=== PATIENT | male | born 1935 | race Caucasian/White ===

== ENCOUNTER 2021-11-02 17:04 | Inpatient (IN) ==
[2021-11-02 17:15] VITALS: BMI 25.0
[2021-11-02 17:30] LABS: ABG HCO3 23.1 mmol/L (22-26)
--- NOTE | 2021-11-02 18:12 | DR.SOBA ---
HPI Time Seen Time Seen by Provider: 11/02/21 18:09 Primary Care Physician Primary Care Physician: DR. GUERLINE PERAZA Complaints Chief Complaint:: PT'S STATES PT C/O LOW O2 SATS, COUGH, & SOB X2 DAYS. PT IS ON HOME O2 @ NIGHT 2.5L NC. COVID-19 Coronavirus risk:travel/contact w/high risk person: No Has patient experienced Coronavirus symptoms: No Reviewed Nurses Notes Reviewed: Yes Source History Provided: Patient, Family Member and Significant Other Mode of Arrival Mode of Arrival: Wheelchair Timing Onset of Chief Complaint: 10/31/21 PMH PMH Past Medical History: Yes Past Medical History: Coronary Artery Disease, Diabetes and Hypertension Past Medical History Comment: HYPERLIPIDEMIA Past Surgical History: Yes Surgical History: Angioplasty/Stents Past Surgical History Comment: BYPASS X2, STENTS PLACED, PACEMAKER Family History History of Family Medical Conditions: Yes Family Medical History: Diabetes Mellitus, Cancer, MD, Coronary Artery Disease, Heart Failure and Hypertension Travel Risk Coronavirus risk:travel/contact w/high risk person: No Has patient experienced Coronavirus symptoms: No Infectious screening Have you traveled outside the country in the last 6 months?: No Isolation: Standard ROS Review of Systems Constitutional: No Symptoms Reported and See HPI Eyes: No Symptoms Reported and See HPI ENTM: No Symptoms Reported and See HPI Respiratoy: No Symptoms Reported and See HPI Cardiovascular: No Symptoms Reported and See HPI Gastrointestinal/Abdominal: No Symptoms Reported and See HPI Genitourinary: No Symptoms Reported and See HPI Neurological: No Symptoms Reported and See HPI Musculoskeletal: No Symptoms Reported and See HPI Integumentary: No Symptoms Reported and See HPI Hematologic/Lymphatic: No Symptoms Reported and See HPI Endocrine: No Symptoms Reported and See HPI Psychiatric: No Symptoms Reported and See HPI All Other Systems: Reviewed and Negative PE Vital Signs Vitals: Temperature 97.9 F Pulse Rate 69 Respiratory Rate 21 Blood Pressure 125/63 O2 Sat by Pulse Oximetry 96 General Limitations: No Limitations General Appearance: Alert and In No Apparent Distress Head Head Exam: Normal Inspection Eyes Eye exam: Normal Appearance ENT ENT Exam: Normal Exam Neck Neck Exam: Normal Inspection Chest Chest Inspection: Normal Inspection Respiratory Respiratory Exam: Normal Lung Sounds Bilat Respiratory Exam: Bilateral: Clear to Auscultation Cardiovascular Cardiovascular Exam: Regular Rate and Normal Rhythm Abdominal Exam Abdominal Exam: Normal Inspection, Normal Bowel Sounds and Soft Extremities Extremities Exam: Normal Inspection Back Back Exam: Normal Inspection Neurologic Neurological Exam: Alert and Oriented X3 Psychiatric Psychiatric Exam: Normal Affect and Normal Mood Skin Skin Exam: Warm, Dry, Intact and Normal Color MDM Differential Diagnosis Differential Diagnosis: COPD, Mycardial Infarction, Pneumonia, Pulmonary embolism and Respiratory Insufficiency Differential Diagnosis Comment:: Covid pneumonia COURSE Treatment Treatment: Attempt transfer to higher level of care but no beds available. Consultation Call Returned: 23:11 Consultation Comments: Dr. Garcia agrees to admit patient Education/Counseling Education/Counseling: Patient, Family and Counseling Educated On: Treatment and Diagnosis Critical Care Notes Total Time (mins): 60 Critical Diagnosis: Resp distress Covid Pneumonia AMI with elevated troponin Critical Interventions: Attempt transfer, but no [facility] beds are available at this time. Dr. Garcia will admit and monitor progress. ROR Labs Reviewed Laboratory Results Reviewed?: Yes Result Diagrams: 11/13/21 05:28 11/13/21 05:28 Laboratory: 11/02/21 17:51 Blood Blood Culture - Final 11/02/21 17:30 Blood Blood Culture - Final 11/03/21 01:00 Urine,Catheterized Urine Culture - Final 11/02/21 18:09 Sputum - Expectorated Sputum Sputum Culture - Final 11/02/21 18:09 Sputum - Expectorated Sputum - Final WBC 7.6 X10^3/uL (3.6-10.0) 11/02/21 17:51 RBC 2.77 X10^6/uL (4.7-6.0) L 11/02/21 17:51 Hgb 7.5 g/dL (13.5-18.0) L 11/02/21 17:51 Hct 22.7 % (42.0-54.0) L 11/02/21 17:51 MCV 81.8 fL (80.0-100.0) 11/02/21 17:51 MCH 27.1 pg (27.0-34.0) 11/02/21 17:51 MCHC 33.1 g/dL (33.0-35.0) 11/02/21 17:51 RDW 20.8 % (11.6-16.5) H 11/02/21 17:51 Plt Count 221 X10^3/uL (150.0-450.0) 11/02/21 17:51 Plt Count Comment Adequate (ADEQUATE) 11/02/21 17:51 MPV 8.5 fL (7.4-11.0) 11/02/21 17:51 Neut % (Auto) 88.4 % (42.0-75.0) H 11/02/21 17:51 Lymph % (Auto) 3.8 % (21.0-51.0) L 11/02/21 17:51 [place] % (Auto) 7.0 % (0.0-13.0) 11/02/21 17:51 Eos % (Auto) 0.6 % (0.9-2.9) L 11/02/21 17:51 Baso % (Auto) 0.2 % (0.2-1.0) 11/02/21 17:51 Neut # (Auto) 6.7 x10^3/uL (2.2-4.8) H 11/02/21 17:51 Lymph # (Auto) 0.3 X10^3/uL (1.3-2.9) L 11/02/21 17:51 [place] # (Auto) 0.5 x10^3/uL (0.3-0.8) 11/02/21 17:51 Eos # (Auto) 0.0 x10^3/uL (0.0-0.2) 11/02/21 17:51 Baso # (Auto) 0.0 X10^3/uL (0.0-0.1) 11/02/21 17:51 Absolute Nucleated RBC 0.0 /100WBC 11/02/21 17:51 Plt Morphology Comment Normal (NORMAL) 11/02/21 17:51 RBC Morphology Abnormal (NORMAL) 11/02/21 17:51 Poikilocytosis Slight A 11/02/21 17:51 Anisocytosis 1+ A 11/02/21 17:51 PT 15.5 SECONDS (11.8-14.3) 11/03/21 00:40 INR Target Range - 11/03/21 00:40 INR 1.30 (0.8-1.3) 11/03/21 00:40 APTT 36.6 SECONDS (22.9-36.5) H 11/03/21 00:40 PTT Comment - 11/03/21 00:40 Sample Site Rbra 11/02/21 17:23 ABG pH 7.370 (7.35-7.45) 11/02/21 17: ABG pCO2 40.0 mmHg (35.0-45.0) 11/02/21 17: ABG pO2 53.0 mmHg (80.0-100.0) L 11/02/21 17: ABG HCO3 23.1 mmol/L (22-26) 11/02/21 17: ABG O2 Saturation 86.0 % (90-100) L 11/02/21 17: ABG Base Excess -2.0 mmol/L (-2.0-2.0) 11/02/21 17: Cristiano Test N/a 11/02/21: A-a Gradient 47.0 mmHg 11/02/21 17: FiO2 21.0 11/02/21 17: Blood Gas Comments Pt ken well elj 11/02/21 17:23 Sodium 135 mmol/L (136-145) L 11/02/21 17:51 Corrected Sodium 139 mmol/L (136-145) 11/02/21 17:51 Potassium 4.3 mmol/L (3.5-5.1) 11/02/21 17:51 Chloride 98 mmol/L (98-107) 11/02/21 17:51 Carbon Dioxide 23.7 mmol/L (21-32) 11/02/21 17:51 BUN 60 mg/dL (7-18) H 11/02/21 17:51 Creatinine 4.06 mg/dL (0.70-1.30) H 11/02/21 17:51 Est GFR (MDRD) Af Amer 18 (>60) L 11/02/21 17:51 Est GFR (MDRD) Non-Af 15 (>60) L 11/02/21 17:51 Glucose 255 mg/dL (65-99) H 11/02/21 17:51 POC Glucose (mg/dL) 190 mg/dL (65-99) H 11/02/21 22:59 Lactic Acid 1.7 mmol/L (0.4-2.0) 11/02/21 17:51 Calcium 7.9 mg/dL (8.5-10.1) L 11/02/21 17:51 Corrected Calcium 9.3 mg/dL (8.5-10.1) 11/02/21 17:51 Total Bilirubin 0.80 mg/dL (0.2-1.0) 11/02/21 17:51 AST 42 Units/L (15-37) H 11/02/21 17:51 ALT 25 Units/L (12-78) 11/02/21 17:51 Alkaline Phosphatase 107 Units/L (46-116) 11/02/21 17:51 Creatine Kinase 589 Units/L (39-308) H 11/03/21 00:40 CK-MB (CK-2) 8.8 ng/mL (0-4.0) H* 11/03/21 00:40 CK/CKMB % Calc 1.5 % (<4) 11/03/21 00:40 Troponin I High Sens 140.1 ng/L (4.0-60.0) H* 11/03/21 00:40 B-Natriuretic Peptide 1010 pg/mL (0-79) H* 11/03/21 00:40 Total Protein 7.0 g/dL (6.4-8.2) 11/02/21 17:51 Albumin 2.2 g/dL (3.4-5.0) L 11/02/21 17:51 Globulin 4.8 g/dL (2.5-4.5) H 11/02/21 17:51 Albumin/Globulin Ratio 0.5 Ratio (1.1-2.1) L 11/02/21 17:51 Specimen Type Catherized urine 11/03/21 01:00 Urine Color Kimberlyn (YELLOW) 11/03/21 01:00 Urine Appearance Clear (CLEAR) 11/03/21 01:00 Urine pH 5.0 (5.0 - 8.0) 11/03/21 01:00 Ur Specific [place] 1.025 (1.000-1.030) 11/03/21 01:00 Urine Protein 2+ (NEGATIVE) 11/03/21 01:00 Urine Glucose (UA) Negative (NEGATIVE) 11/03/21 01:00 Urine Ketones Negative (NEGATIVE) 11/03/21 01:00 Urine Occult Blood 1+ (NEGATIVE) 11/03/21 01:00 Urine Nitrite Negative (NEGATIVE) 11/03/21 01:00 Urine Bilirubin Negative (NEGATIVE) 11/03/21 01:00 Urine Urobilinogen Normal (NORMAL) 11/03/21 01:00 Ur Leukocyte Esterase Negative (NEGATIVE) 11/03/21 01:00 Urine RBC None seen /HPF (0-3) 11/03/21 01:00 Urine WBC 0-2 /HPF (0-5) 11/03/21 01:00 Ur Squamous Epith Cells Negative /HPF (NEGATIVE) 11/03/21 01:00 Urine Bacteria 2+ /HPF (NEGATIVE) 11/03/21 01:00 Ur Culture Indicated? Yes/culture set up 11/03/21 01:00 SARS CoV-2 RNA Rapid BIRGIT Positive (NEGATIVE) A 11/02/21 17:38 XRAY XRAY Interpreted by: Radiologist X-ray Results: Name: Mackenzie DAVALOS#: [id number]: [id number] : [id number]: MLocation: ER Order Number(s): [id number](s):CHEST, 1 VIEW Ordering Physician: URMILA QUINONEZ Primary Care: GUERLINE PERAZA Service Date: 11/02/21 Service Time: 1726 HISTORY Shortness of breath x2 days. Patient on home oxygen. STUDY CHEST, 1 VIEW COMPARISON None available TECHNIQUE Chest radiographic imaging, AP portable projection, 1 image FINDINGS Mild cardiomegaly. Status post median sternotomy/CABG. Pacemaker in place. Bilateral perihilar airspace opacities. No pleural effusion. No pneumothorax. No acute osseous abnormality. IMPRESSION Bilateral perihilar airspace opacities could represent cardiogenic edema or the sequela of a atypical/viral infectious process. Electronically signed by: Олег Elizalde (Nov 02, 2021 18:21:30) Report Electronically signed: 11/02/21 1823 CC: Urmila Quinonez EKG Rate: 75 Rhythm: Paced Opioid Opioid Risk Tool Age (Thien box if 16-45): No History of Preadolescent Sexual Abuse: No Total: 0 Total Score Risk Category: Low Risk Copyright: Esteban SOLER predicting aberrant behaviors Diagnosis Discharge Problem: COVID-19 virus infection, Non Q wave myocardial infarction, Acute respiratory distress Instructions Instructions: COVID-19
[2021-11-02 18:19] LABS: BASOPHILS % (AUTO) 0.2 % (0.2-1.0); EOSINOPHILS % (AUTO) 0.6 % (0.9-2.9); HEMATOCRIT 22.7 % (42.0-54.0); HEMOGLOBIN 7.5 g/dL (13.5-18.0); LYMPHOCYTES # (AUTO) 0.3 X10^3/uL (1.3-2.9); LYMPHOCYTES % (AUTO) 3.8 % (21.0-51.0); MEAN CORPUSCULAR HEMOGLOBIN 27.1 pg (27.0-34.0); MEAN CORPUSCULAR HGB CONC 33.1 g/dL (33.0-35.0); MEAN CORPUSCULAR VOLUME 81.8 fL (80.0-100.0); MEAN PLATELET VOLUME 8.5 fL (7.4-11.0); MONOCYTES # (AUTO) 0.5 x10^3/uL (0.3-0.8); NEUTROPHILS # (AUTO) 6.7 x10^3/uL (2.2-4.8); NEUTROPHILS % (AUTO) 88.4 % (42.0-75.0); RED BLOOD COUNT 2.77 X10^6/uL (4.7-6.0); RED CELL DISTRIBUTION WIDTH 20.8 % (11.6-16.5); WHITE BLOOD COUNT 7.6 X10^3/uL (3.6-10.0)
--- NOTE | 2021-11-02 18:23 | RAD ---
HISTORYShortness of breath x2 days. Patient on home oxygen.STUDYCHEST, 1 VIEWCOMPARISONNone availableTECHNIQUEChest radiographic imaging, AP portable projection, 1 imageFINDINGSMild cardiomegaly.Status post median sternotomy/CABG.Pacemaker in place.Bilateral perihilar airspace opacities.No pleural effusion.No pneumothorax.No acute osseous abnormality.IMPRESSIONBilateral perihilar airspace opacities could represent cardiogenic edema or the sequela of a atypical/viral infectious process.Electronically signed by: Олег Elizalde (Nov 02, 2021 18:21:30)
[2021-11-02 18:36] LABS: LACTIC ACID 1.7 mmol/L (0.4-2.0)
[2021-11-02 18:45] LABS: ANISOCYTOSIS 1+; POIKILOCYTOSIS SLIGHT
[2021-11-02 18:52] LABS: ALBUMIN 2.2 g/dL (3.4-5.0); CALCIUM 7.9 mg/dL (8.5-10.1); CARBON DIOXIDE 23.7 mmol/L (21-32); CKMB % 1.6 % (<4); COR CA(FOR HYPOALB) 9.3 mg/dL (8.5-10.1); CREATININE 4.06 mg/dL (0.70-1.30)
[2021-11-02 19:31] LABS: PLATELET MORPHOLOGY COMMENT NORMAL (NORMAL)
[2021-11-02] MEDS ORDERED: DUONEB 0.5 MG/3 MG (3 mL) NEB ONE ×2 (21:01→21:13)
[2021-11-02] MEDS ORDERED: SOLU-Medrol 125 MG VIAL IVP ONE (21:01)
[2021-11-02] MEDS ORDERED: SOLU-Medrol 125 MG VIAL ONE (22:05)
[2021-11-02] MEDS ORDERED: ZOSYN VIAL 3.375 GRAMS 3.375 G in NS 100 ML IV + SPIKE MINIBAG* 100 ML IV ONE (22:59)
[2021-11-02] MEDS ORDERED: NS 1,000 ML IV 1,000 ML IV SCH (23:45)
[2021-11-03] MEDS ORDERED: ZOSYN VIAL 3.375 GRAMS IV ONE ×3 (00:14→08:57)
[2021-11-03] MEDS ORDERED: NS 1,000 ML IV 1,000 ML ONE ×2 (00:15→13:43)
[2021-11-03] MEDS ORDERED: NS 100 ML IV + SPIKE MINIBAG* 100 ML IV ONE ×3 (00:15→08:57)
[2021-11-03] MEDS ORDERED: HEPARIN SODIUM INJ 5000 UNITS ONE (01:43)
[2021-11-03] MEDS ORDERED: HEPARIN SODIUM IN D5W 25,000 UNITS/500 ML BAG ONE (01:43)
[2021-11-03 01:56] LABS: BILIRUBIN,URINE NEGATIVE (NEGATIVE); BLOOD/HEMOGLOBIN,URINE 1+ (NEGATIVE); GLUCOSE, URINE NEGATIVE (NEGATIVE); KETONES,URINE NEGATIVE (NEGATIVE); LEUKOCYTE ESTERASE ,URINE NEGATIVE (NEGATIVE); NITRITES,URINE NEGATIVE (NEGATIVE); PROTEIN,URINE 2+ (NEGATIVE); UROBILINOGEN,URINE NORMAL (NORMAL)
[2021-11-03 01:57] LABS: CKMB % 1.5 % (<4)
[2021-11-03 02:05] LABS: CREATINE KINASE MB 8.8 ng/mL (0-4.0)
[2021-11-03 02:07] LABS: APPEARANCE,URINE CLEAR (CLEAR); BACTERIA,URINE 2+ /HPF (NEGATIVE); COLOR,URINE AMBER (YELLOW); RBC,URINE NONE SEEN /HPF (0-3); SQUAMOUS EPITHELIAL CELL,UR NEGATIVE /HPF (NEGATIVE)
[2021-11-03] MEDS ORDERED: HEPARIN SODIUM INJ 5000 UNITS IVP ONE (02:35)
[2021-11-03] MEDS: HEPARIN SODIUM IN D5W 25,000 UNITS/500 ML BAG IV PRN ×2 (02:41→16:48)
[2021-11-03] MEDS ORDERED: NS 1,000 ML IV 1,000 ML IV SCH (03:00)
[2021-11-03] MEDS ORDERED: NS 100 ML IV 100 ML ONE ×3 (03:18→11:12)
[2021-11-03] MEDS: ASCORBIC ACID INJ MULTI-DOSE VIAL 1,500 MG in NS 100 ML IV 100 ML IV SCH ×2 (03:33→03:34)
[2021-11-03] MEDS ORDERED: ZOSYN VIAL 3.375 GRAMS 3.375 G in NS 100 ML IV + SPIKE MINIBAG* 100 ML IV SCH (06:00)
[2021-11-03] MEDS ORDERED: SOLU-Medrol 40 MG VIAL IVP SCH (06:00)
[2021-11-03] MEDS: NS 1,000 ML IV 1,000 ML IV SCH ×2 (06:14→13:44)
[2021-11-03] MEDS ORDERED: SOLU-Medrol 40 MG VIAL ONE (06:16)
[2021-11-03] MEDS ORDERED: NovoLIN R (or HumuLIN R) ONE ×2 (06:18→12:26)
[2021-11-03] MEDS: NovoLIN R (or HumuLIN R) SUBCUT PRN ×2 (06:41→17:29)
[2021-11-03 06:46] LABS: CKMB % 1.3 % (<4)
[2021-11-03 06:49] LABS: CREATINE KINASE MB 7.5 ng/mL (0-4.0)
[2021-11-03] MEDS ORDERED: BROVANA ONE (07:35)
[2021-11-03] MEDS ORDERED: PULMICORT NEB TX 0.5 MG NEB ONE ×2 (07:35→20:30)
[2021-11-03] MEDS ORDERED: ZINC SULFATE ONE (08:02)
[2021-11-03] MEDS ORDERED: VIBRAMYCIN PO ONE (08:02)
[2021-11-03] MEDS ORDERED: ASCORBIC ACID INJ MULTI-DOSE VIAL IV ONE (08:03)
[2021-11-03] MEDS ORDERED: PEPCID TAB 40 MG ONE (08:03)
[2021-11-03] MEDS ORDERED: TRICOR TAB 160 MG ONE (08:03)
[2021-11-03] MEDS: PULMICORT NEB TX 0.5 MG NEB SCH (08:25)
[2021-11-03] MEDS: BROVANA IN SCH (08:25)
[2021-11-03] MEDS: VIBRAMYCIN PO SCH (08:46)
[2021-11-03] MEDS: PEPCID TAB 20 MG PO SCH (08:46)
[2021-11-03] MEDS: ZINC SULFATE PO SCH (08:47)
[2021-11-03] MEDS: ZOSYN VIAL 3.375 GRAMS 3.375 G in NS 100 ML IV + SPIKE MINIBAG* 100 ML IV SCH (08:59)
[2021-11-03] MEDS ORDERED: VITAMIN D (1.25MG) PO SCH (09:00)
[2021-11-03] MEDS ORDERED: BROVANA IN SCH (09:00)
[2021-11-03] MEDS ORDERED: TRICOR TAB 160 MG PO SCH (09:00)
[2021-11-03] MEDS ORDERED: ASCORBIC ACID INJ MULTI-DOSE VIAL 1,500 MG in NS 50 ML IV 50 ML IV SCH (09:00)
[2021-11-03] MEDS ORDERED: VITAMIN A PO SCH (09:00)
[2021-11-03] MEDS ORDERED: PULMICORT NEB TX 0.5 MG NEB SCH (09:00)
[2021-11-03] MEDS ORDERED: PHARMACY CONSULT - IVERMECTIN XX SCH (10:00)
[2021-11-03] MEDS ORDERED: REMDESIVIR 200 MG in NS 250 ML IV 250 ML IV ONE (10:02)
[2021-11-03 11:04] LABS: CKMB % 1.5 % (<4)
[2021-11-03 11:05] LABS: HEMOGLOBIN 7.8 g/dL (13.5-18.0); LYMPHOCYTES # (AUTO) 0.2 X10^3/uL (1.3-2.9); MEAN CORPUSCULAR HGB CONC 32.8 g/dL (33.0-35.0); MEAN CORPUSCULAR VOLUME 81.8 fL (80.0-100.0); MEAN PLATELET VOLUME 9.2 fL (7.4-11.0); MONOCYTES # (AUTO) 0.1 x10^3/uL (0.3-0.8); WHITE BLOOD COUNT 5.5 X10^3/uL (3.6-10.0)
[2021-11-03 11:06] LABS: CREATINE KINASE MB 8.9 ng/mL (0-4.0)
[2021-11-03 11:08] LABS: BASOPHILS % (AUTO) 0.7 % (0.2-1.0); EOSINOPHILS % (AUTO) 0.1 % (0.9-2.9); HEMATOCRIT 23.8 % (42.0-54.0); LYMPHOCYTES % (AUTO) 3.3 % (21.0-51.0); MEAN CORPUSCULAR HEMOGLOBIN 26.8 pg (27.0-34.0); MONOCYTES % (AUTO) 1.9 % (0.0-13.0); NEUTROPHILS # (AUTO) 5.2 x10^3/uL (2.2-4.8); RED BLOOD COUNT 2.91 X10^6/uL (4.7-6.0); RED CELL DISTRIBUTION WIDTH 20.7 % (11.6-16.5)
[2021-11-03] MEDS ORDERED: REMDESIVIR IV ONE (11:11)
[2021-11-03] MEDS ORDERED: LUVOX ONE (11:11)
[2021-11-03] MEDS ORDERED: IVERMECTIN ONE (11:11)
[2021-11-03 11:13] LABS: ALBUMIN 2.1 g/dL (3.4-5.0); CALCIUM 7.8 mg/dL (8.5-10.1); CARBON DIOXIDE 19.2 mmol/L (21-32); COR CA(FOR HYPOALB) 9.3 mg/dL (8.5-10.1); CREATININE 3.84 mg/dL (0.70-1.30); TOTAL PROTEIN 6.8 g/dL (6.4-8.2)
[2021-11-03 11:26] LABS: BAND NEUTROPHILS % 4 % (0-10); BURR CELLS 2+; PLATELET MORPHOLOGY COMMENT NORMAL (NORMAL)
[2021-11-03] MEDS: LUVOX PO SCH (11:49)
[2021-11-03] MEDS: COZAAR PO SCH (11:50)
[2021-11-03] MEDS: ISOSORBIDE MONONITRATE ER 24-HR PO SCH (11:50)
[2021-11-03] MEDS: COREG TAB 25 MG PO SCH (11:50)
[2021-11-03] MEDS: IVERMECTIN PO SCH (11:51)
[2021-11-03] MEDS: RANEXA PO SCH (11:52)
[2021-11-03] MEDS: REMDESIVIR 100 MG in NS 250 ML IV 250 ML IV SCH (11:53)
[2021-11-03] MEDS ORDERED: SOLU-Medrol 125 MG VIAL ONE (12:25)
[2021-11-03] MEDS ORDERED: VITAMIN C ONE (12:26)
[2021-11-03] MEDS: VITAMIN C PO SCH ×2 (12:30→21:10)
[2021-11-03] MEDS: SOLU-Medrol 125 MG VIAL IVP SCH (13:43)
[2021-11-03 16:53] LABS: CKMB % 1.7 % (<4)
[2021-11-03 16:58] LABS: CREATINE KINASE MB 10.6 ng/mL (0-4.0)
[2021-11-03] MEDS ORDERED: BROVANA IN ONE (20:30)
[2021-11-04] MEDS ORDERED: ZINC SULFATE PO ONE (09:00)
[2021-11-04] MEDS ORDERED: PEPCID TAB 20 MG PO ONE (09:00)
[2021-11-04] MEDS ORDERED: VIBRAMYCIN IV ONE (09:00)
[2021-11-04] MEDS ORDERED: SOLU-Medrol 125 MG VIAL IVP ONE (09:00)
[2021-11-04] MEDS: COREG TAB 25 MG PO SCH ×2 (09:10→21:36)
[2021-11-04] MEDS: LUVOX PO SCH ×2 (09:15→21:36)
[2021-11-04] MEDS: IVERMECTIN PO SCH (09:15)
[2021-11-04] MEDS: COZAAR PO SCH (09:15)
[2021-11-04] MEDS: RANEXA PO SCH ×2 (09:15→21:36)
[2021-11-04] MEDS: ISOSORBIDE MONONITRATE ER 24-HR PO SCH (09:15)
[2021-11-04] MEDS: ZOSYN VIAL 3.375 GRAMS 3.375 G in NS 100 ML IV + SPIKE MINIBAG* 100 ML IV SCH ×2 (09:15→22:06)
[2021-11-04] MEDS: VIBRAMYCIN PO SCH ×2 (09:15→21:36)
[2021-11-04] MEDS: ZINC SULFATE PO SCH ×2 (09:15→21:36)
[2021-11-04] MEDS: PEPCID TAB 20 MG PO SCH (09:15)
[2021-11-04] MEDS ORDERED: PULMICORT NEB TX 0.5 MG NEB ONE (09:30)
[2021-11-04] MEDS ORDERED: BROVANA IN ONE (09:30)
[2021-11-04] MEDS: NS 1,000 ML IV 1,000 ML IV SCH (09:41)
[2021-11-04] MEDS: NovoLIN R (or HumuLIN R) SUBCUT PRN ×3 (12:20→22:16)
--- NOTE | 2021-11-04 14:18 | RAD ---
HISTORYCOVID-19, shortness of breathSTUDYChest AP [id number] teral pacemakers are present. Patient is status post median sternotomy and CABG. There has been interval development since the prior examination of complete opacification of the left hemithorax which could be on the basis of left lung atelectasis however associated consolidation or pleural effusion not excluded. Diffuse alveolar infiltrates remain unchanged on the right. Bony thorax is unremarkable.IMPRESSIONInterval development since the prior examination of complete opacification of the left hemithorax which could be due to left lung atelectasis, however, consolidation and pleural effusion not excludedNo change severe diffuse right lung alveolar infiltratesElectronically signed by: ROZ BOND (Nov 04, 2021 14:16:06)
[2021-11-04 14:24] LABS: ALBUMIN 1.9 g/dL (3.4-5.0); CALCIUM 7.6 mg/dL (8.5-10.1); CARBON DIOXIDE 20.9 mmol/L (21-32); CKMB % 1.9 % (<4); COR CA(FOR HYPOALB) 9.3 mg/dL (8.5-10.1); CREATININE 3.6 mg/dL (0.70-1.30); MAGNESIUM 1.9 mg/dL (1.7-2.9); TOTAL PROTEIN 6.5 g/dL (6.4-8.2)
[2021-11-04 14:25] LABS: CREATINE KINASE MB 10.3 ng/mL (0-4.0)
[2021-11-04] MEDS: SOLU-Medrol 125 MG VIAL IVP SCH ×2 (14:30→21:37)
[2021-11-04 14:51] LABS: BASOPHILS % (AUTO) 0.1 % (0.2-1.0); HEMATOCRIT 21.4 % (42.0-54.0); LYMPHOCYTES # (AUTO) 0.2 X10^3/uL (1.3-2.9); MEAN CORPUSCULAR HEMOGLOBIN 26.6 pg (27.0-34.0); MEAN CORPUSCULAR HGB CONC 32.8 g/dL (33.0-35.0); MEAN CORPUSCULAR VOLUME 81.2 fL (80.0-100.0); MEAN PLATELET VOLUME 8.7 fL (7.4-11.0); MONOCYTES # (AUTO) 0.3 x10^3/uL (0.3-0.8); NEUTROPHILS # (AUTO) 6.7 x10^3/uL (2.2-4.8); NEUTROPHILS % (AUTO) 92.9 % (42.0-75.0); RED BLOOD COUNT 2.63 X10^6/uL (4.7-6.0); RED CELL DISTRIBUTION WIDTH 20.3 % (11.6-16.5); WHITE BLOOD COUNT 7.2 X10^3/uL (3.6-10.0)
[2021-11-04 14:53] LABS: ANISOCYTOSIS 1+; HYPOCHROMASIA SLIGHT; PLATELET MORPHOLOGY COMMENT NORMAL (NORMAL)
--- NOTE | 2021-11-04 16:18 | PCM.PROG ---
Progress Note Progress Note for Day of Date of Exam: 11/04/21 Subjective Subjective: Patient had some hallucinations overnight. Seeing and hearing things. Family reports he did not rest well last night. The patient is alert this morning and does answer questions. Hb has dropped to 7.0, Cr 3.60, Potassium 4.1, Na 135, WBC's 7.2. CXR shows left lung whiteout. Troponin 118.6 which is trending down. Past Medical Family Social History Past Med/Fam/Surg Hx: No changes since H&P Allergies: Allergies No Known Drug Allergies Allergy (Verified 11/02/21 17:15) Review of Systems ROS: Changes notes (describe) ROS changes noted: Hallucinations Vital Signs and I&O's Vital Signs: Temperature 98.2 F Pulse Rate [Left Brachial] 69 Pulse Rate 69 Respiratory Rate 24 Blood Pressure [Left Arm] 144/68 Blood Pressure 157/62 O2 Sat by Pulse Oximetry 92 Intake and Output: Intake & Output 11/02/21 11/03/21 11/04/21 11/05/21 11:59 11:59 11:59 11:59 Intake Total 1043 / 1043 1120 / 1120 Output Total 375 / 375 Balance 668 / 668 1120 / 1120 Physical Exam Oriented: Person and Place Eyes: Normal Ear: Normal Nose: Normal Throat: Normal Respiratory: Generalized, Wheezes and Rhonchi : Normal Auscultation: Bowel Sounds: Normal Palpation: Normal Tenderness: Normal Skin: Normal Musculoskeletal: Normal Psychiatric: Normal Mood Description: Calm Affect: Normal Speech Pattern: Clear and Appropriate Laboratory and Diagnostics Result Diagrams: 11/04/21 05:08 11/04/21 05:08 Labs: 11/02/21 17:51 Blood Blood Culture - Preliminary 11/02/21 17:30 Blood Blood Culture - Preliminary 11/03/21 01:00 Urine,Catheterized Urine Culture - Preliminary 11/02/21 18:09 Sputum - Expectorated Sputum Sputum Culture - Final 11/02/21 18:09 Sputum - Expectorated Sputum - Final Laboratory WBC 7.2 X10^3/uL (3.6-10.0) 11/04/21 05:08 RBC 2.63 X10^6/uL (4.7-6.0) L 11/04/21 05:08 Hgb 7.0 g/dL (13.5-18.0) L 11/04/21 05:08 Hct 21.4 % (42.0-54.0) L 11/04/21 05:08 MCV 81.2 fL (80.0-100.0) 11/04/21 05:08 MCH 26.6 pg (27.0-34.0) L 11/04/21 05:08 MCHC 32.8 g/dL (33.0-35.0) L 11/04/21 05:08 RDW 20.3 % (11.6-16.5) H 11/04/21 05:08 Plt Count 221 X10^3/uL (150.0-450.0) 11/04/21 05:08 Plt Count Comment Adequate (ADEQUATE) 11/04/21 05:08 MPV 8.7 fL (7.4-11.0) 11/04/21 05:08 Neut % (Auto) 92.9 % (42.0-75.0) H 11/04/21 05:08 Lymph % (Auto) 3.0 % (21.0-51.0) L 11/04/21 05:08 [place] % (Auto) 4.0 % (0.0-13.0) 11/04/21 05:08 Eos % (Auto) 0.0 % (0.9-2.9) L 11/04/21 05:08 Baso % (Auto) 0.1 % (0.2-1.0) L 11/04/21 05:08 Neut # (Auto) 6.7 x10^3/uL (2.2-4.8) H 11/04/21 05:08 Lymph # (Auto) 0.2 X10^3/uL (1.3-2.9) L 11/04/21 05:08 [place] # (Auto) 0.3 x10^3/uL (0.3-0.8) 11/04/21 05:08 Eos # (Auto) 0.0 x10^3/uL (0.0-0.2) 11/04/21 05:08 Baso # (Auto) 0.0 X10^3/uL (0.0-0.1) 11/04/21 05:08 Absolute Nucleated RBC 0.1 /100WBC 11/04/21 05:08 Total Counted 100 11/04/21 05:08 Neutrophils % (Manual) 90 % (39-76) H 11/04/21 05:08 Band Neutrophils % 4 % (0-10) 11/03/21 05:51 Lymphocytes % (Manual) 7 % (13-43) L 11/04/21 05:08 Monocytes % (Manual) 3 % (4-9) L 11/04/21 05:08 Plt Morphology Comment Normal (NORMAL) 11/04/21 05:08 RBC Morphology Abnormal (NORMAL) 11/04/21 05:08 Hypochromasia Slight A 11/04/21 05:08 Poikilocytosis Slight A 11/02/21 17:51 Anisocytosis 1+ A 11/04/21 05:08 Caryl Cells 2+ A 11/03/21 05:51 Acanthocytes (Spur) Noted 11/04/21 05:08 PT 15.5 SECONDS (11.8-14.3) 11/03/21 00:40 INR Target Range - 11/03/21 00:40 INR 1.30 (0.8-1.3) 11/03/21 00:40 APTT 56.8 SECONDS (22.9-36.5) H 11/04/21 14:34 PTT Comment - 11/04/21 14:34 D-Dimer 4.06 ug/ml (0.0-0.57) H* 11/03/21 08:58 Sample Site [facility] 11/02/21 17: ABG pH 7.370 (7.35-7.45) 11/02/21 17:23 ABG pCO2 40.0 mmHg (35.0-45.0) 11/02/21 17:23 ABG pO2 53.0 mmHg (80.0-100.0) L 11/02/21 17:23 ABG HCO3 23.1 mmol/L (22-26) 11/02/21 17: ABG O2 Saturation 86.0 % (90-100) L 11/02/21 17:23 ABG Base Excess -2.0 mmol/L (-2.0-2.0) 11/02/21 17:23 Cristiano Test N/a 11/02/21 17:23 A-a Gradient 47.0 mmHg 11/02/21 17:23 FiO2 21.0 11/02/21 17:23 Blood Gas Comments Pt ken well elj 11/02/21 17:23 Sodium 135 mmol/L (136-145) L 11/04/21 05:08 Corrected Sodium 141 mmol/L (136-145) 11/04/21 05:08 Potassium 4.1 mmol/L (3.5-5.1) 11/04/21 05:08 Chloride 101 mmol/L (98-107) 11/04/21 05:08 Carbon Dioxide 20.9 mmol/L (21-32) L 11/04/21 05:08 BUN 77 mg/dL (7-18) H 11/04/21 05:08 Creatinine 3.60 mg/dL (0.70-1.30) H 11/04/21 05:08 Est GFR (MDRD) Af Amer 21 (>60) L 11/04/21 05:08 Est GFR (MDRD) Non-Af 17 (>60) L 11/04/21 05:08 Glucose 340 mg/dL (65-99) H 11/04/21 05:08 POC Glucose (mg/dL) 421 mg/dL (65-99) H 11/03/21 16:36 Lactic Acid 1.7 mmol/L (0.4-2.0) 11/02/21 17:51 Calcium 7.6 mg/dL (8.5-10.1) L 11/04/21 05:08 Corrected Calcium 9.3 mg/dL (8.5-10.1) 11/04/21 05:08 Magnesium 1.9 mg/dL (1.7-2.9) 11/04/21 05:08 Total Bilirubin 0.50 mg/dL (0.2-1.0) 11/04/21 05:08 AST 54 Units/L (15-37) H 11/04/21 05:08 ALT 37 Units/L (12-78) 11/04/21 05:08 Alkaline Phosphatase 93 Units/L (46-116) 11/04/21 05:08 Creatine Kinase 530 Units/L (39-308) H 11/04/21 05:08 CK-MB (CK-2) 10.3 ng/mL (0-4.0) H* 11/04/21 05:08 CK/CKMB % Calc 1.9 % (<4) 11/04/21 05:08 Troponin I High Sens 118.6 ng/L (4.0-60.0) H* 11/04/21 05:08 C-Reactive Protein 159.00 mg/L (0-3.0) H 11/04/21 05:08 B-Natriuretic Peptide 1010 pg/mL (0-79) H* 11/03/21 00:40 Total Protein 6.5 g/dL (6.4-8.2) 11/04/21 05:08 Albumin 1.9 g/dL (3.4-5.0) L 11/04/21 05:08 Globulin 4.6 g/dL (2.5-4.5) H 11/04/21 05:08 Albumin/Globulin Ratio 0.4 Ratio (1.1-2.1) L 11/04/21 05:08 Specimen Type Catherized urine 11/03/21 01:00 Urine Color Kimberlyn (YELLOW) 11/03/21 01:00 Urine Appearance Clear (CLEAR) 11/03/21 01:00 Urine pH 5.0 (5.0 - 8.0) 11/03/21 01:00 Ur Specific [place] 1.025 (1.000-1.030) 11/03/21 01:00 Urine Protein 2+ (NEGATIVE) 11/03/21 01:00 Urine Glucose (UA) Negative (NEGATIVE) 11/03/21 01:00 Urine Ketones Negative (NEGATIVE) 11/03/21 01:00 Urine Occult Blood 1+ (NEGATIVE) 11/03/21 01:00 Urine Nitrite Negative (NEGATIVE) 11/03/21 01:00 Urine Bilirubin Negative (NEGATIVE) 11/03/21 01:00 Urine Urobilinogen Normal (NORMAL) 11/03/21 01:00 Ur Leukocyte Esterase Negative (NEGATIVE) 11/03/21 01:00 Urine RBC None seen /HPF (0-3) 11/03/21 01:00 Urine WBC 0-2 /HPF (0-5) 11/03/21 01:00 Ur Squamous Epith Cells Negative /HPF (NEGATIVE) 11/03/21 01:00 Urine Bacteria 2+ /HPF (NEGATIVE) 11/03/21 01:00 Ur Culture Indicated? Yes/culture set up 11/03/21 01:00 SARS CoV-2 RNA Rapid BIRGIT Positive (NEGATIVE) A 11/02/21 17:38 Blood Type O POSITIVE 11/03/21 05:51 Antibody Screen Negative 11/03/21 05:51 Radiology Reviewed: Yes EKG Reviewed: Yes ST: Normal Plan (1) COVID-19 virus infection: Status: Acute Plan: Ween off heated high flow as tolerated. (2) Non Q wave myocardial infarction: Status: Acute Narrative Support Text: Troponons are trending down now. Continue to monitor and continue Heparin drip, Coreg, Losartan and NTG. Plan: Continue current treatment. (3) Acute respiratory distress: Status: Acute Narrative Support Text: Stable. Plan: Continue nebs, IV abx and Solumedrol.
[2021-11-04] MEDS: REMDESIVIR 100 MG in NS 250 ML IV 250 ML IV SCH (16:27)
[2021-11-04 16:58] LABS: CKMB % 1.8 % (<4); CREATINE KINASE MB 12.4 ng/mL (0-4.0)
[2021-11-04] MEDS: VITAMIN C PO SCH ×2 (17:18→21:35)
[2021-11-04] MEDS ORDERED: DUONEB 0.5 MG/3 MG (3 mL) NEB ONE (18:30)
[2021-11-04] MEDS: DUONEB 0.5 MG/3 MG (3 mL) NEB PRN ×2 (18:34→23:57)
[2021-11-04 18:56] LABS: ABG ALLEN TEST POS; ABG BASE EXCESS -3.7 mmol/L (-2.0-2.0); ABG HCO3 22.1 mmol/L (22-26)
[2021-11-04] MEDS: SNACK - Diabetic Appropriate PO SCH (21:00)
[2021-11-04] MEDS: PULMICORT NEB TX 0.5 MG NEB SCH (21:10)
[2021-11-04] MEDS: BROVANA IN SCH (21:10)
[2021-11-04] MEDS: NORVASC TAB 5 MG PO SCH (21:36)
[2021-11-05 01:12] LABS: CKMB % 2.3 % (<4)
[2021-11-05 01:26] LABS: CREATINE KINASE MB 6.7 ng/mL (0-4.0)
[2021-11-05 03:03] LABS: ALBUMIN 1.9 g/dL (3.4-5.0); CALCIUM 7.7 mg/dL (8.5-10.1); CARBON DIOXIDE 23.5 mmol/L (21-32); COR CA(FOR HYPOALB) 9.4 mg/dL (8.5-10.1); CREATININE 3.29 mg/dL (0.70-1.30); MAGNESIUM 1.8 mg/dL (1.7-2.9); TOTAL PROTEIN 6.4 g/dL (6.4-8.2)
[2021-11-05 03:04] LABS: BASOPHILS % (AUTO) 0.1 % (0.2-1.0); HEMATOCRIT 21.7 % (42.0-54.0); HEMOGLOBIN 7.1 g/dL (13.5-18.0); LYMPHOCYTES # (AUTO) 0.2 X10^3/uL (1.3-2.9); MEAN CORPUSCULAR HEMOGLOBIN 26.7 pg (27.0-34.0); MEAN CORPUSCULAR HGB CONC 32.9 g/dL (33.0-35.0); MEAN CORPUSCULAR VOLUME 81.1 fL (80.0-100.0); MEAN PLATELET VOLUME 8.5 fL (7.4-11.0); MONOCYTES # (AUTO) 0.3 x10^3/uL (0.3-0.8); MONOCYTES % (AUTO) 4.3 % (0.0-13.0); NEUTROPHILS # (AUTO) 7.5 x10^3/uL (2.2-4.8); NEUTROPHILS % (AUTO) 93.6 % (42.0-75.0); RED BLOOD COUNT 2.68 X10^6/uL (4.7-6.0); RED CELL DISTRIBUTION WIDTH 20.4 % (11.6-16.5)
[2021-11-05] MEDS: VITAMIN C PO SCH ×3 (03:09→15:57)
[2021-11-05 04:27] LABS: ANISOCYTOSIS 1+; HYPOCHROMASIA SLIGHT; PLATELET MORPHOLOGY COMMENT NORMAL (NORMAL)
--- NOTE | 2021-11-05 05:41 | RAD ---
PROCEDURE: Chest X-ray 1 View .HISTORY: SHORTNESS OF BREATH, PNEUMONIA, RESP DISTRESS, HYPOXIA .TECHNIQUE: AP portable done at 5:36 a.m..COMPARISON: 11/04/2021.TECHNICAL QUALITY: Satisfactory .FINDINGS:Heart size upper limits of normal with pacemaker on both sides that is unchanged.Normal central vascularity.Bilateral pneumonia that is moderately severe increased in density on the right and improved on the left.IMPRESSION:Changing pneumonia bilaterally as described above.Electronically signed by: Alexis Malone (Nov 05, 2021 05:40:28)
[2021-11-05] MEDS: SOLU-Medrol 125 MG VIAL IVP SCH ×2 (05:45→21:20)
[2021-11-05 05:47] LABS: ABG BASE EXCESS -2.2 mmol/L (-2.0-2.0); ABG HCO3 20.9 mmol/L (22-26)
[2021-11-05] MEDS: NovoLIN R (or HumuLIN R) SUBCUT PRN ×2 (06:00→21:20)
[2021-11-05] MEDS: HEPARIN SODIUM IN D5W 25,000 UNITS/500 ML BAG IV PRN (06:02)
[2021-11-05] MEDS: NS 1,000 ML IV 1,000 ML IV SCH (06:17)
[2021-11-05] MEDS: BROVANA IN SCH ×2 (09:10→20:40)
[2021-11-05] MEDS: PULMICORT NEB TX 0.5 MG NEB SCH ×2 (09:10→20:40)
[2021-11-05] MEDS ORDERED: VALIUM PO PRN (11:12)
[2021-11-05] MEDS: ZOSYN VIAL 3.375 GRAMS 3.375 G in NS 100 ML IV + SPIKE MINIBAG* 100 ML IV SCH ×2 (11:13→21:20)
[2021-11-05] MEDS: REMDESIVIR 100 MG in NS 250 ML IV 250 ML IV SCH (11:13)
[2021-11-05] MEDS: ISOSORBIDE MONONITRATE ER 24-HR PO SCH (11:15)
[2021-11-05] MEDS: IVERMECTIN PO SCH (11:16)
[2021-11-05] MEDS: RANEXA PO SCH ×2 (11:16→21:20)
[2021-11-05] MEDS: COZAAR PO SCH (11:17)
[2021-11-05] MEDS: VIBRAMYCIN PO SCH ×2 (11:17→21:20)
[2021-11-05] MEDS: VITAMIN D3 125 mcg (5,000 UNITS) PO SCH (11:17)
[2021-11-05] MEDS: LUVOX PO SCH ×2 (11:18→21:20)
[2021-11-05] MEDS: COREG TAB 25 MG PO SCH ×2 (11:18→21:20)
[2021-11-05] MEDS: PEPCID TAB 20 MG PO SCH (11:19)
[2021-11-05] MEDS: ZINC SULFATE PO SCH ×2 (11:19→21:20)
[2021-11-05 14:33] LABS: ABG ALLEN TEST POS
--- NOTE | 2021-11-05 16:01 | PCM.PROG ---
Progress Note Progress Note for Day of Date of Exam: 11/05/21 Subjective Subjective: Patient rested better last night. No new complaints this am. Troponins are trending down still. CXR shows the left lung field is not kenny out today but worsening infiltrate on in the right lung. Past Medical Family Social History Past Med/Fam/Surg Hx: No changes since H&P Allergies: Allergies No Known Drug Allergies Allergy (Verified 11/02/21 17:15) Review of Systems ROS: Changes notes (describe) Vital Signs and I&O's Vital Signs: Temperature 97.7 F Pulse Rate [Left Brachial] 69 Pulse Rate 69 Respiratory Rate 19 Blood Pressure [Left Arm] 144/68 Blood Pressure 133/65 O2 Sat by Pulse Oximetry 93 Intake and Output: Intake & Output 11/03/21 11/04/21 11/05/21 11/06/21 11:59 11:59 11:59 11:59 Intake Total 1043 / 1043 1120 / 1120 3775 / 3775 Output Total 375 / 375 2500 / 2500 Balance 668 / 668 1120 / 1120 1275 / 1275 Physical Exam Oriented: Person and Place Eyes: Normal Ear: Normal Nose: Normal Throat: Normal Respiratory: Generalized, Wheezes and Rhonchi : Normal Auscultation: Bowel Sounds: Normal Tenderness: Normal Skin: Normal Musculoskeletal: Normal Psychiatric: Normal Mood Description: Calm Affect: Normal Speech Pattern: Clear and Appropriate Laboratory and Diagnostics Result Diagrams: 11/05/21 02:38 11/05/21 02:38 Labs: 11/03/21 01:00 Urine,Catheterized Urine Culture - Final 11/02/21 17:51 Blood Blood Culture - Preliminary 11/02/21 17:30 Blood Blood Culture - Preliminary 11/02/21 18:09 Sputum - Expectorated Sputum Sputum Culture - Final 11/02/21 18:09 Sputum - Expectorated Sputum - Final Laboratory WBC 8.0 X10^3/uL (3.6-10.0) 11/05/21 02:38 RBC 2.68 X10^6/uL (4.7-6.0) L 11/05/21 02:38 Hgb 7.1 g/dL (13.5-18.0) L 11/05/21 02:38 Hct 21.7 % (42.0-54.0) L 11/05/21 02:38 MCV 81.1 fL (80.0-100.0) 11/05/21 02:38 MCH 26.7 pg (27.0-34.0) L 11/05/21 02:38 MCHC 32.9 g/dL (33.0-35.0) L 11/05/21 02:38 RDW 20.4 % (11.6-16.5) H 11/05/21 02:38 Plt Count 222 X10^3/uL (150.0-450.0) 11/05/21 02:38 Plt Count Comment Adequate (ADEQUATE) 11/05/21 02:38 MPV 8.5 fL (7.4-11.0) 11/05/21 02:38 Neut % (Auto) 93.6 % (42.0-75.0) H 11/05/21 02:38 Lymph % (Auto) 2.0 % (21.0-51.0) L 11/05/21 02:38 Gregg % (Auto) 4.3 % (0.0-13.0) 11/05/21 02:38 Eos % (Auto) 0.0 % (0.9-2.9) L 11/05/21 02:38 Baso % (Auto) 0.1 % (0.2-1.0) L 11/05/21 02:38 Neut # (Auto) 7.5 x10^3/uL (2.2-4.8) H 11/05/21 02:38 Lymph # (Auto) 0.2 X10^3/uL (1.3-2.9) L 11/05/21 02:38 Gregg # (Auto) 0.3 x10^3/uL (0.3-0.8) 11/05/21 02:38 Eos # (Auto) 0.0 x10^3/uL (0.0-0.2) 11/05/21 02:38 Baso # (Auto) 0.0 X10^3/uL (0.0-0.1) 11/05/21 02:38 Absolute Nucleated RBC 0.2 /100WBC 11/05/21 02:38 Total Counted 100 11/05/21 02:38 Neutrophils % (Manual) 94 % (39-76) H 11/05/21 02:38 Band Neutrophils % 4 % (0-10) 11/03/21 05:51 Lymphocytes % (Manual) 2 % (13-43) L 11/05/21 02:38 Monocytes % (Manual) 4 % (4-9) 11/05/21 02:38 Plt Morphology Comment Normal (NORMAL) 11/05/21 02:38 RBC Morphology Abnormal (NORMAL) 11/05/21 02:38 Hypochromasia Slight A 11/05/21 02:38 Poikilocytosis Slight A 11/02/21 17:51 Anisocytosis 1+ A 11/05/21 02:38 Caryl Cells 2+ A 11/03/21 05:51 Acanthocytes (Spur) 1+ 11/05/21 02:38 PT 15.5 SECONDS (11.8-14.3) 11/03/21 00:40 INR Target Range - 11/03/21 00:40 INR 1.30 (0.8-1.3) 11/03/21 00:40 APTT 83.9 SECONDS (22.9-36.5) H 11/05/21 02:38 PTT Comment - 11/05/21 02:38 D-Dimer 4.06 ug/ml (0.0-0.57) H* 11/03/21 08:58 Sample Site Lr 11/05/21 05:43 ABG pH 7.450 (7.35-7.45) 11/05/21 05:43 ABG pCO2 30.0 mmHg (35.0-45.0) L 11/05/21 05:43 ABG pO2 73.0 mmHg (80.0-100.0) L 11/05/21 05:43 ABG HCO3 20.9 mmol/L (22-26) L 11/05/21 05:43 ABG O2 Saturation 95.0 % (90-100) 11/05/21 05:43 ABG Base Excess -2.2 mmol/L (-2.0-2.0) L 11/05/21 05:43 Cristiano Test Pos 11/05/21 05:43 A-a Gradient 246.0 mmHg 11/05/21 05:43 FiO2 50.0 11/05/21 05:43 Blood Gas Comments Angela well kh cb 11/05/21 05:43 Sodium 135 mmol/L (136-145) L 11/05/21 02:38 Corrected Sodium 141 mmol/L (136-145) 11/05/21 02:38 Potassium 3.9 mmol/L (3.5-5.1) 11/05/21 02:38 Chloride 101 mmol/L (98-107) 11/05/21 02:38 Carbon Dioxide 23.5 mmol/L (21-32) 11/05/21 02:38 BUN 84 mg/dL (7-18) H 11/05/21 02:38 Creatinine 3.29 mg/dL (0.70-1.30) H 11/05/21 02:38 Est GFR (MDRD) Af Amer 23 (>60) L 11/05/21 02:38 Est GFR (MDRD) Non-Af 19 (>60) L 11/05/21 02:38 Glucose 330 mg/dL (65-99) H 11/05/21 02:38 POC Glucose (mg/dL) 421 mg/dL (65-99) H 11/03/21 16:36 Lactic Acid 1.7 mmol/L (0.4-2.0) 11/02/21 17:51 Calcium 7.7 mg/dL (8.5-10.1) L 11/05/21 02:38 Corrected Calcium 9.4 mg/dL (8.5-10.1) 11/05/21 02:38 Magnesium 1.8 mg/dL (1.7-2.9) 11/05/21 02:38 Total Bilirubin 0.40 mg/dL (0.2-1.0) 11/05/21 02:38 AST 37 Units/L (15-37) 11/05/21 02:38 ALT 41 Units/L (12-78) 11/05/21 02:38 Alkaline Phosphatase 90 Units/L (46-116) 11/05/21 02:38 Creatine Kinase 286 Units/L (39-308) 11/05/21 00:12 CK-MB (CK-2) 6.7 ng/mL (0-4.0) H* 11/05/21 00:12 CK/CKMB % Calc 2.3 % (<4) 11/05/21 00:12 Troponin I High Sens 108.5 ng/L (4.0-60.0) H* 01/23/22 00:12 C-Reactive Protein 99.30 mg/L (0-3.0) H 11/05/21 02:38 B-Natriuretic Peptide 1010 pg/mL (0-79) H* 11/03/21 00:40 Total Protein 6.4 g/dL (6.4-8.2) 11/05/21 02:38 Albumin 1.9 g/dL (3.4-5.0) L 11/05/21 02:38 Globulin 4.5 g/dL (2.5-4.5) 11/05/21 02:38 Albumin/Globulin Ratio 0.4 Ratio (1.1-2.1) L 11/05/21 02:38 Specimen Type Catherized urine 11/03/21 01:00 Urine Color Kimberlyn (YELLOW) 11/03/21 01:00 Urine Appearance Clear (CLEAR) 11/03/21 01:00 Urine pH 5.0 (5.0 - 8.0) 11/03/21 01:00 Ur Specific [place] 1.025 (1.000-1.030) 11/03/21 01:00 Urine Protein 2+ (NEGATIVE) 11/03/21 01:00 Urine Glucose (UA) Negative (NEGATIVE) 11/03/21 01:00 Urine Ketones Negative (NEGATIVE) 11/03/21 01:00 Urine Occult Blood 1+ (NEGATIVE) 11/03/21 01:00 Urine Nitrite Negative (NEGATIVE) 11/03/21 01:00 Urine Bilirubin Negative (NEGATIVE) 11/03/21 01:00 Urine Urobilinogen Normal (NORMAL) 11/03/21 01:00 Ur Leukocyte Esterase Negative (NEGATIVE) 11/03/21 01:00 Urine RBC None seen /HPF (0-3) 11/03/21 01:00 Urine WBC 0-2 /HPF (0-5) 11/03/21 01:00 Ur Squamous Epith Cells Negative /HPF (NEGATIVE) 11/03/21 01:00 Urine Bacteria 2+ /HPF (NEGATIVE) 11/03/21 01:00 Ur Culture Indicated? Yes/culture set up 11/03/21 01:00 SARS CoV-2 RNA Rapid BIRGIT Positive (NEGATIVE) A 11/02/21 17:38 Blood Type O POSITIVE 11/03/21 05:51 Antibody Screen Negative 11/03/21 05:51 Radiology Reviewed: Yes Plan (1) COVID-19 virus infection: Status: Acute Narrative Support Text: Improving clinically. Plan: Ween off heated high flow as tolerated. (2) Non Q wave myocardial infarction: Status: Acute Plan: Continue current treatment. (3) Acute respiratory distress: Status: Acute Plan: Continue nebs, IV abx and Solumedrol. (4) Anxiety: Status: Acute Plan: prn Valium 2.5 mg Q8H prn.
[2021-11-05] MEDS: VITAMIN A PO SCH (17:28)
[2021-11-05] MEDS: NORVASC TAB 5 MG PO SCH (21:20)
[2021-11-05] MEDS: SNACK - Diabetic Appropriate PO SCH (21:20)
[2021-11-05] MEDS ORDERED: MAALOX or MYLANTA PO PRN (22:39)
[2021-11-06] MEDS: VITAMIN C PO SCH ×3 (01:17→22:59)
[2021-11-06] MEDS ORDERED: VALIUM INJ IVP ONE ×3 (02:38→05:08)
[2021-11-06] MEDS: NS 1,000 ML IV 1,000 ML IV SCH (05:14)
[2021-11-06 05:18] LABS: BASOPHILS % (AUTO) 0.1 % (0.2-1.0); EOSINOPHILS % (AUTO) 0.1 % (0.9-2.9); LYMPHOCYTES # (AUTO) 0.2 X10^3/uL (1.3-2.9); LYMPHOCYTES % (AUTO) 2.5 % (21.0-51.0); MEAN CORPUSCULAR HEMOGLOBIN 27.1 pg (27.0-34.0); MEAN CORPUSCULAR HGB CONC 33.6 g/dL (33.0-35.0); MEAN CORPUSCULAR VOLUME 80.4 fL (80.0-100.0); MEAN PLATELET VOLUME 8.5 fL (7.4-11.0); MONOCYTES # (AUTO) 0.3 x10^3/uL (0.3-0.8); MONOCYTES % (AUTO) 3.1 % (0.0-13.0); NEUTROPHILS # (AUTO) 8.8 x10^3/uL (2.2-4.8); NEUTROPHILS % (AUTO) 94.2 % (42.0-75.0); RED BLOOD COUNT 2.44 X10^6/uL (4.7-6.0); RED CELL DISTRIBUTION WIDTH 20.8 % (11.6-16.5); WHITE BLOOD COUNT 9.3 X10^3/uL (3.6-10.0)
[2021-11-06 05:22] LABS: CALCIUM 8.3 mg/dL (8.5-10.1); CARBON DIOXIDE 23.8 mmol/L (21-32); CREATININE 2.95 mg/dL (0.70-1.30)
[2021-11-06 05:26] LABS: HEMATOCRIT 19.6 % (42.0-54.0); HEMOGLOBIN 6.6 g/dL (13.5-18.0)
[2021-11-06 05:36] LABS: COR CA(FOR HYPOALB) 9.9 mg/dL (8.5-10.1); TOTAL PROTEIN 6.2 g/dL (6.4-8.2)
[2021-11-06 05:42] LABS: ANISOCYTOSIS 1+; HYPOCHROMASIA SLIGHT; MICROCYTOSIS 1+; PLATELET MORPHOLOGY COMMENT NORMAL (NORMAL)
[2021-11-06] MEDS: SOLU-Medrol 125 MG VIAL IVP SCH ×3 (05:45→21:30)
[2021-11-06] MEDS: HEPARIN SODIUM IN D5W 25,000 UNITS/500 ML BAG IV PRN ×2 (06:00→15:06)
[2021-11-06] MEDS: NovoLIN R (or HumuLIN R) SUBCUT PRN ×2 (06:58→21:30)
[2021-11-06] MEDS: PULMICORT NEB TX 0.5 MG NEB SCH ×2 (07:46→20:45)
[2021-11-06] MEDS: BROVANA IN SCH ×2 (07:46→20:45)
[2021-11-06] MEDS ORDERED: MORPHINE SULFATE INJ 2 MG INJ IVP STA (07:51)
[2021-11-06 08:39] LABS: ABG ALLEN TEST POS; ABG BASE EXCESS -0.4 mmol/L (-2.0-2.0); ABG HCO3 24.1 mmol/L (22-26)
[2021-11-06] MEDS: ZOSYN VIAL 3.375 GRAMS 3.375 G in NS 100 ML IV + SPIKE MINIBAG* 100 ML IV SCH ×2 (09:45→21:30)
[2021-11-06] MEDS: MORPHINE SULFATE INJ 2 MG INJ IVP PRN ×2 (12:03→23:57)
[2021-11-06] MEDS ORDERED: NS 500 ML IV 500 ML IV PRN (12:10)
[2021-11-06] MEDS ORDERED: BENADRYL INJ 50 MG VIAL IVP STA (12:18)
[2021-11-06] MEDS ORDERED: OFIRMEV IV 1000 MG VIAL 1,000 MG/100 ML VIAL IV ONE (12:20)
[2021-11-06] MEDS: DUONEB 0.5 MG/3 MG (3 mL) NEB PRN ×2 (13:45→20:45)
--- NOTE | 2021-11-06 14:30 | DR.H&P ---
H&P - History & Physical for Day of: H&P Date: 11/02/21 - Chief Complaint Chief Complaint: COUGH, SHORTNESS OF BREATH, WEAKNESS - History of Present Illness History of Present Illness: MR.TAYLORI Sears A 86 YEAR OLD WHITE MALE, PATIENT OF DR.MUKESH DAY. HE PRESENTED TO THE ER WITH SPOUSE REPORTING THAT PATIENT HAS HAD COUGH AND SHORTNESS OF BREATH FOR THE LAST TWO DAYS. HIS SPOUSE ALSO REPORTS THAT HIS OXYGEN SATURATIONS AT HOME HAVE BEEN IN THE LOWER 80s. PATIENT HAS BEEN USING OXYGEN VIA NASAL CANNULA AT 2.5 LPM AT NIGHT. HIS PMH INCLUDES: CAD, DIABETES II, HTN, HYPERLIPIDEMIA, RENAL DISEASE, CARDIAC STENTS, BYPASS X 2, PACEMAKER. UPON EXAMINATION, AUSCULTATION OF LUNG FLEMING REVEALED RHONCHI THROUGHOUT. ON ARRIVAL TO THE ER, HIS VITALS WERE 97.9-72-17-86%-103/57. LABS WERE OBTAINED AT 17:50. WBC 7.6, RBC 2.77, HGB 7.5, HCT 22.7, SODIUM 135, BUN 60, CREATININE 4.06, GLUCOSE 255, CALCIUM 7.9, LACTIC ACID 1.7, AST 42, ALT 25, ALK PHOS 107, ALBUMIN 2.2, GLOBULIN 4.8. CREATINE KINASE 430, CK-MB 7.0, TROPONIN 151.9, BNP 1010. A URINALYSIS WAS OBTAINED AND IS UNREMARKABLE. AN ABG WAS OBTAINED AND REVEALED: PH 7.370, PC02 40, P02 53, HC03 23.1, 02 SAT 86, A-A GRADIENT 47, FI02 21.0. HE WAS PLACED ON NASAL CANNULA AT 2 LPM. COVID-19 POSITIVE. BLOOD, SPUTUM, AND URINE CULTURES WERE SET UP. AN EKG WAS OBTAINED AND REVEALED: VENTRICULAR PACED RHYTHM WITH HR 75. CHEST XRAY OBTAINED AND REVEALED: Bilateral perihilar airspace opacities could represent cardiogenic edema or the sequela of an atypical/viral infectious process. CARDIAC ENZYMES WERE REPEATED AT 00:40 ON 11/03. CREATINE KINASE 589, CK-MB 8.8, TROPONIN 140.1. CARDIAC ENZYMES REPEATED AGAIN AT 05:51. CREATINE KINASE 566, CK-MB 7.5, TROPONIN 147.5. IN THE ER, HE WAS GIVEN A DUONEB, SOLU-MEDROL 125MG IV X 1, ZOSYN 3.375G IV X 1, ASCORBIC ACID 1500MG IV X 1, AND WAS STARTED ON A HEPARIN DRIP. PATIENTS FAMILY REFUSED REMDESIVIR. HE WAS ADMITTED TO THE HOSPITAL FOR FURTHER EVAULATION AND TREATMENT OF PNEUMONIA DUE TO COVID-19, HYPOXIA, RESPIRATORY DISTRESS, NON-Q WAVE [place], ACUTE ON CHRONIC RENAL FAILURE. HE WAS STARTED ON NORMAL SALINE, HEPARIN DRIP PER PROTOCOL, ZOSYN 3.375 G IV TID, DOXYCYCLINE 100MG PO BID, DUONEBS QID PRN, BROVANA INHALER BID, PULMICORT NEBS BID, FLUVOXAMINE 50MG PO BID, IVERMECTIN DAILY, VITAMIN C 1000MG PO Q6H, OTBS ACHS, HUMULIN R SLIDING SCALE, SOLU-MEDROL 80MG IV Q8H, VITAMIN A DAILY, ZINC SULFATE 220MG PO BID, AND HIS HOME MEDICATIONS WERE RESUMED. OTHERWISE, WE PLAN OT FOLLOW UP WITH AM LABS AND CHEST XRAY AND CONTINUE TO MONITOR. WE WILL ALSO REPEAT CARDIAC ENZYMES AND EKGS AND OBTAIN AN ECHOCARDIOGRAM. TIME SPENT ON CLINICAL ASSESSMENT, REVIEWING LABS AND IMAGING, DECISION MAKING, AND DOCUMENTATION WAS GREATER THAN 75 MINUTES. - Past Medical History Past Medical History: Coronary Artery Disease, Diabetes, Dyslipidemia, Hypertension, Renal Disease - Past Surgical History Surgical History: Angioplasty/Stents Additional Surgical History: BYPASS X 2, PACEMAKER - Family History Family Medical History: Diabetes Mellitus, Cancer, [place], Coronary Artery Disease, Hypertension - Social History Alcohol Use: None Drug Use: None - Medications Home Medications: No Known Drug Allergies Allergy (Verified 11/02/21 17:15) CONTINUE taking the following medications amlodipine 5 mg PO QHS 11/02/21 [History] ascorbic acid (vitamin C) [Vitamin C] 1 g PO Q6H 11/02/21 [History] aspirin 81 mg PO ONCE 11/02/21 [History] carvedilol 25 mg PO BID 11/02/21 [History] clopidogrel 75 mg PO DAILY 11/02/21 [History] furosemide 20 mg PO DAILY 11/02/21 [History] gabapentin 300 mg PO QID 11/02/21 [History] insulin NPH and regular human [Novolin 70/30 U-100 Insulin] 15 unit SUBCUT BID 11/02/21 [History] isosorbide mononitrate 120 mg PO DAILY 11/02/21 [History] losartan 25 mg PO DAILY 11/02/21 [History] potassium chloride 10 meq PO DAILY 11/02/21 [History] ranolazine 500 mg PO BID 11/02/21 [History] - Review of Systems Constitutional: Weakness Eyes: No Symptoms Reported ENT: Nose Congestion Respiratory: Cough, Shortness of Breath Cardiovascular: No Symptoms Reported Gastrointestinal: No Symptoms Reported Genitourinary: No Symptoms Reported Musculoskeletal: No Symptoms Reported Skin: No Symptoms Reported Neurological: Weakness - Physical Exam Vital Signs: Temperature 98.9 F Pulse Rate [Left Brachial] 69 Pulse Rate 68 Respiratory Rate 24 Blood Pressure [Left Arm] 144/68 Blood Pressure 150/77 O2 Sat by Pulse Oximetry 94 Oriented: Person, Place Eyes: Normal Ear: Normal Nose: Normal Throat: Normal Respiratory: Rhonchi Throughout Cardiovascular: Normal : Normal Auscultation: Bowel Sounds: Normal Palpation: Normal Tenderness: Normal Skin: Normal Musculoskeletal: Normal Psychiatric: Normal Mood Description: Calm Affect: Normal Speech Pattern: Clear - Assessment/Plan (1) Pneumonia due to COVID-19 virus Status: Acute Plan: ADMIT, SUPPLEMENTAL OXYGEN, NORMAL SALINE, HEPARIN DRIP PER PROTOCOL, ZOSYN 3.375 G IV TID, DOXYCYCLINE 100MG PO BID, DUONEBS QID PRN, BROVANA INHALER BID, PULMICORT NEBS BID, FLUVOXAMINE 50MG PO BID, IVERMECTIN DAILY, VITAMIN C 1000MG PO Q6H, OTBS ACHS, HUMULIN R SLIDING SCALE, SOLU-MEDROL 80MG IV Q8H, VITAMIN A DAILY, ZINC SULFATE 220MG PO BID, AND HIS HOME MEDICATIONS WERE RESUMED. (2) Non Q wave myocardial infarction Status: Acute (3) Hypoxia Status: Acute (4) Acute respiratory distress Status: Acute (5) Acute on chronic renal failure Qualifiers: Acute renal failure type: unspecified Chronic kidney disease stage: unspecified stage Qualified Code(s): N17.9 - Acute kidney failure, unspecified; N18.9 - Chronic kidney disease, unspecified Status: Acute - Allergies Allergies/Adverse Reactions: Allergies Allergy/AdvReac Type Severity Reaction Status Date / Time No Known Drug Allergies Allergy Verified 11/02/21 17:15
--- NOTE | 2021-11-06 15:59 | RAD ---
HISTORYSOB chf.brSTUDYCHEST, 1 VIEWCOMPARISONPortable chest November 05, 2021FINDINGSThe trachea is midline. The cardiac silhouette is mildly enlarged. Bilateral pacemaker batteries are in place there are sternotomy wires and surgical clips from CABG surgery. The bilateral perihilar alveolar infiltrates show minimal improvement compared to yesterdays study. No pleural effusion is observed. The bony thorax is unremarkable.IMPRESSIONBilateral pulmonary alveolar infiltrates most consistent with pneumonia show no significant change but there may be minimal improvement in the infiltrate in the right lower lung field compared to yesterdays study.. There is definite improved aeration in the left lung compared to November 04, 2021Electronically signed by: FANY COURTNEY (Nov 06, 2021 15:57:45)
[2021-11-06] MEDS ORDERED: LASIX IVP ONE ×2 (17:30→23:00)
[2021-11-06 20:51] LABS: HEMATOCRIT 21.1 % (42.0-54.0)
[2021-11-06 21:07] LABS: HEMOGLOBIN 6.9 g/dL (13.5-18.0)
[2021-11-06] MEDS ORDERED: NS 100 ML IV 100 ML ONE (21:14)
[2021-11-06] MEDS: NORVASC TAB 5 MG PO SCH (21:30)
[2021-11-06] MEDS: NEURONTIN CAP 100 MG PO SCH (21:30)
[2021-11-06] MEDS: COREG TAB 25 MG PO SCH (21:30)
[2021-11-06] MEDS ORDERED: DUONEB 0.5 MG/3 MG (3 mL) NEB SCH (22:00)
[2021-11-06] MEDS: SNACK - Diabetic Appropriate PO SCH (23:08)
[2021-11-06] MEDS: VIBRAMYCIN PO SCH (23:09)
[2021-11-06] MEDS: ZINC SULFATE PO SCH (23:09)
[2021-11-06] MEDS: RANEXA PO SCH (23:10)
[2021-11-07] MEDS ORDERED: HEPARIN SODIUM INJ 5000 UNITS IVP ONE (01:02)
[2021-11-07] MEDS: VITAMIN C PO SCH ×3 (01:31→21:57)
[2021-11-07 03:31] LABS: BASOPHILS # (AUTO) 0.1 X10^3/uL (0.0-0.1); BASOPHILS % (AUTO) 0.8 % (0.2-1.0); HEMATOCRIT 25.1 % (42.0-54.0); HEMOGLOBIN 8.3 g/dL (13.5-18.0); LYMPHOCYTES # (AUTO) 0.3 X10^3/uL (1.3-2.9); LYMPHOCYTES % (AUTO) 1.7 % (21.0-51.0); MEAN CORPUSCULAR HEMOGLOBIN 27.2 pg (27.0-34.0); MEAN CORPUSCULAR HGB CONC 33.1 g/dL (33.0-35.0); MEAN CORPUSCULAR VOLUME 82.3 fL (80.0-100.0); MEAN PLATELET VOLUME 8.6 fL (7.4-11.0); MONOCYTES # (AUTO) 0.4 x10^3/uL (0.3-0.8); MONOCYTES % (AUTO) 2.6 % (0.0-13.0); NEUTROPHILS # (AUTO) 15.1 x10^3/uL (2.2-4.8); NEUTROPHILS % (AUTO) 94.9 % (42.0-75.0); RED BLOOD COUNT 3.05 X10^6/uL (4.7-6.0); RED CELL DISTRIBUTION WIDTH 18.5 % (11.6-16.5); WHITE BLOOD COUNT 15.9 X10^3/uL (3.6-10.0)
[2021-11-07 03:51] LABS: CALCIUM 8.5 mg/dL (8.5-10.1); CARBON DIOXIDE 22.5 mmol/L (21-32)
[2021-11-07 04:47] LABS: ALBUMIN 2.2 g/dL (3.4-5.0); COR CA(FOR HYPOALB) 9.9 mg/dL (8.5-10.1); TOTAL PROTEIN 6.4 g/dL (6.4-8.2)
[2021-11-07 04:51] LABS: CREATINE KINASE MB 6.2 ng/mL (0-4.0)
[2021-11-07] MEDS: SOLU-Medrol 125 MG VIAL IVP SCH ×3 (05:37→21:59)
[2021-11-07 05:42] LABS: ANISOCYTOSIS 1+; HYPOCHROMASIA SLIGHT; PLATELET MORPHOLOGY COMMENT NORMAL (NORMAL)
[2021-11-07] MEDS: NovoLIN R (or HumuLIN R) SUBCUT PRN ×2 (05:52→21:58)
[2021-11-07] MEDS: NEURONTIN CAP 100 MG PO SCH ×4 (06:19→21:59)
[2021-11-07 07:03] LABS: ABG BASE EXCESS -0.1 mmol/L (-2.0-2.0); ABG HCO3 25.4 mmol/L (22-26)
[2021-11-07] MEDS: PULMICORT NEB TX 0.5 MG NEB SCH ×2 (09:01→20:30)
[2021-11-07] MEDS: BROVANA IN SCH ×2 (09:01→20:30)
[2021-11-07] MEDS: ALBUMIN HUMAN 25%- 100 ML 100 ML IV SCH (09:05)
[2021-11-07] MEDS ORDERED: HALDOL INJ ONE (09:25)
[2021-11-07] MEDS ORDERED: PROCRIT or EPOGEN VIAL 10,000 UNITS SC ONE (09:26)
[2021-11-07] MEDS: ZOSYN VIAL 3.375 GRAMS 3.375 G in NS 100 ML IV + SPIKE MINIBAG* 100 ML IV SCH ×2 (09:36→21:59)
[2021-11-07] MEDS: MORPHINE SULFATE INJ 2 MG INJ IVP PRN ×2 (09:37→18:42)
--- NOTE | 2021-11-07 11:11 | RAD ---
HISTORYABD DISTENTIONSTUDYKUB x-ray one viewCOMPARISONNoneFINDINGSLikely mild left-sided constipation. Mild air is seen in the ascending and transverse colon. Little small bowel air is seen within nondilated loops. Ascites may be present. Detail is limited due to patient size and portable technique.IMPRESSIONProbable mild left-sided constipation. No suggestion of bowel obstruction.Ascites in the abdomen is not excluded.Electronically signed by: Shawn Palencia (Nov 07, 2021 11:10:23)
--- NOTE | 2021-11-07 11:19 | RAD ---
HISTORYSOBSTUDYCHEST x-ray, 1 VIEWCOMPARISONX-ray 11/06/2021FINDINGSImage is mismarked as to left side. Patient is rotated to the left. Two cardiac devices are present. Leads appear intact. Heart is likely normal in size. Bilateral pneumonia is likely slightly improved from prior study given differences in technique. Moderate left pleural effusion persists. No pneumothorax is seen.IMPRESSIONPossible mild improvement of pneumonia.Electronically signed by: Shawn Palencia (Nov 07, 2021 11:18:12)
[2021-11-07] MEDS: HALDOL INJ IM PRN (11:30)
[2021-11-07] MEDS: HEPARIN SODIUM IN D5W 25,000 UNITS/500 ML BAG IV PRN (16:03)
[2021-11-07] MEDS: SNACK - Diabetic Appropriate PO SCH (20:38)
[2021-11-07] MEDS: COREG TAB 25 MG PO SCH (21:56)
[2021-11-07] MEDS: LUVOX PO SCH (21:56)
[2021-11-07] MEDS: ZINC SULFATE PO SCH (21:57)
[2021-11-07] MEDS: VIBRAMYCIN PO SCH (21:57)
[2021-11-07] MEDS: RANEXA PO SCH (21:57)
[2021-11-07] MEDS: NORVASC TAB 5 MG PO SCH (21:58)
[2021-11-07] MEDS: NS 1,000 ML IV 1,000 ML IV SCH (23:00)
[2021-11-08] MEDS: MORPHINE SULFATE INJ 2 MG INJ IVP PRN ×3 (00:14→20:14)
[2021-11-08] MEDS: VITAMIN C PO SCH ×3 (03:48→20:40)
[2021-11-08 05:21] LABS: LYMPHOCYTES # (AUTO) 0.3 X10^3/uL (1.3-2.9); MONOCYTES # (AUTO) 0.6 x10^3/uL (0.3-0.8)
[2021-11-08 05:34] LABS: ABG BASE EXCESS 0.3 mmol/L (-2.0-2.0); ABG HCO3 25.4 mmol/L (22-26)
[2021-11-08 05:35] LABS: ABG ALLEN TEST POS
[2021-11-08 05:49] LABS: BASOPHILS % (AUTO) 0.4 % (0.2-1.0); LYMPHOCYTES % (AUTO) 2.5 % (21.0-51.0); MEAN CORPUSCULAR HEMOGLOBIN 27.5 pg (27.0-34.0); MEAN CORPUSCULAR HGB CONC 33.5 g/dL (33.0-35.0); MEAN CORPUSCULAR VOLUME 82.1 fL (80.0-100.0); MEAN PLATELET VOLUME 8.2 fL (7.4-11.0); MONOCYTES % (AUTO) 4.4 % (0.0-13.0); NEUTROPHILS # (AUTO) 12.2 x10^3/uL (2.2-4.8); NEUTROPHILS % (AUTO) 92.7 % (42.0-75.0); RED BLOOD COUNT 1.86 X10^6/uL (4.7-6.0); RED CELL DISTRIBUTION WIDTH 18.5 % (11.6-16.5); WHITE BLOOD COUNT 13.2 X10^3/uL (3.6-10.0)
[2021-11-08] MEDS: NEURONTIN CAP 100 MG PO SCH ×3 (05:50→22:09)
[2021-11-08] MEDS: SOLU-Medrol 125 MG VIAL IVP SCH ×2 (05:50→22:09)
[2021-11-08 05:58] LABS: HEMATOCRIT 15.2 % (42.0-54.0); HEMOGLOBIN 5.1 g/dL (13.5-18.0)
[2021-11-08 06:19] LABS: PLATELET MORPHOLOGY COMMENT NORMAL (NORMAL)
[2021-11-08 06:40] LABS: ALBUMIN 2.2 g/dL (3.4-5.0); CALCIUM 7.9 mg/dL (8.5-10.1); CARBON DIOXIDE 25.4 mmol/L (21-32); CKMB % 0.9 % (<4); COR CA(FOR HYPOALB) 9.3 mg/dL (8.5-10.1); CREATININE 2.96 mg/dL (0.70-1.30); TOTAL PROTEIN 5.5 g/dL (6.4-8.2)
[2021-11-08] MEDS: NovoLIN R (or HumuLIN R) SUBCUT PRN ×2 (06:45→22:09)
[2021-11-08 06:58] LABS: CREATINE KINASE MB 4.6 ng/mL (0-4.0)
[2021-11-08] MEDS: HEPARIN SODIUM IN D5W 25,000 UNITS/500 ML BAG IV PRN (07:15)
--- NOTE | 2021-11-08 07:19 | RAD ---
HISTORYCOVID+, SOBSTUDYCHEST, 1 [id number]/25/2022.TECHNIQUEAP view of the chestFINDINGSBilateral chest wall pacemakers in situ. Status post median sternotomy. Cardiac and mediastinal contours are within normal limits. There is worsened silhouetting of the left hemidiaphragm. Otherwise multifocal bilateral airspace opacities appear similar to prior. Improved right-sided pleural effusion with less pleural fluid layering in the right side wall. Suspect small bilateral pleural effusions. No pneumothorax.IMPRESSIONWorsened left base consolidation. Other airspace opacities appear similar. Suspect small pleural effusions.Electronically signed by: Orlando Martinez (Nov 08, 2021 07:18:34)
[2021-11-08] MEDS: PULMICORT NEB TX 0.5 MG NEB SCH ×2 (08:40→20:15)
[2021-11-08] MEDS: BROVANA IN SCH ×2 (08:40→20:15)
[2021-11-08] MEDS: PROCRIT or EPOGEN VIAL 10,000 UNITS SC SCH (08:48)
[2021-11-08] MEDS: ALBUMIN HUMAN 25%- 100 ML 100 ML IV SCH (08:48)
[2021-11-08] MEDS: ZOSYN VIAL 3.375 GRAMS 3.375 G in NS 100 ML IV + SPIKE MINIBAG* 100 ML IV SCH ×2 (08:48→20:40)
[2021-11-08] MEDS ORDERED: BENADRYL INJ 50 MG VIAL IV STA (09:17)
[2021-11-08] MEDS ORDERED: OFIRMEV IV 1000 MG VIAL 1,000 MG/100 ML VIAL IV ONE (09:19)
[2021-11-08] MEDS ORDERED: DULCOLAX SUPPOSITORY 10 MG RECTAL ONE ×2 (09:39→12:55)
[2021-11-08] MEDS ORDERED: PHARMACY CONSULT - TPN XX SCH (10:00)
--- NOTE | 2021-11-08 10:49 | PCM.PROG ---
Progress Note - Progress Note for Day of Date of Exam: 11/06/21 - Subjective Subjective: WAS ADMITTED FOR TREATMENT OF PNEUMONIA DUE TO COVID-19, HYPOXIA, RESPIRATORY DISTRESS, ANEMIA, NON-Q WAVE [place], AND ACUTE ON CHRONIC RENAL FAILURE. TODAY, PATIENT IS ALERT, LYING IN BED ON MORNING ROUNDS. HE IS DISORIENTED. FAMILY REPORTS THAT HE HAS BEEN DISORIENTED SINCE ADMISSION. STAFF REPORTS THAT HE HAS BEEN COMBATIVE. HE RESPONDS VERBALLY WHEN SPOKEN TO. HE IS NOTED WITH LABORED BREATHING ON MORNING ROUNDS. HE IS CURRENTLY UTILIZING HEATED HIGH FLOW OXYGEN AT 65%FI02. HIS SATURATIONS HAVE BEEN 91-96% THIS MORNING AND THROUGHOUT THE NIGHT. HE REMAINS ON A HEPARIN DRIP THIS MORNING. ON EXAMINATION, HEART IS REGULAR IN RATE AND RHYTHM. BILATERAL LUNGS NOTED WITH SCATTERED RHONCHI THROUGHOUT. ABDOMEN IS ROUND, SOFT, AND NON-TENDER. HYPOACTIVE BOWEL SOUNDS NOTED IN ALL QUADRANTS. HIS VITALS THIS MORNING ARE: 97.8-68-28-91%-131/63. LABS WERE OBTAINED. WBC 9.3, RBC 2.44,HGB 6.6, HCT 19.6, SODIUM 138, POTASSIUM 4.0, BUN 91, CREATININE 2.95, GLUCOSE 367, CALCIUM 8.3, CRP 66.40, TOTAL PROTEIN 6.2, ALBUMIN 2.0. TROPONIN HAS DECREASED. ABG OBTAINED AND REVEALED: PH 7.410, PC02 38, P02 68, HC03 24.1, 02 SAT 93, A-A GRADIENT 284, FI02 56.0. BLOOD, SPUTUM AND URINE CULTURES ARE PENDING. A CHEST XRAY WAS OBTAINED AND REVEALED: Bilateral pulmonary alveolar infiltrates most consistent with pneumonia show no significant change but there may be minimal improvement in the infiltrate in the right lower lung field compared to yesterdays study. There is definite improved aeration in the left lung compared to November 04, 2021. ECHO REVEALED AN EJECTION FRACTION OF 36%. MODERATE MITRAL REGURGITATION, MODERATE PULMONARY HYPERTENSION. PATIENT DOES HAVE A PACEMAKER. HE IS CURRENTLY RECEIVING NORMAL SALINE, HEPARIN DRIP PER PROTOCOL, ZOSYN 3.375 G IV TID, DOXYCYCLINE 100MG PO BID, DUONEBS QID PRN, BROVANA INHALER BID, PULMICORT NEBS BID, FLUVOXAMINE 50MG PO BID, IVERMECTIN DAILY, VITAMIN C 1000MG PO Q6H, OTBS ACHS, HUMULIN R SLIDING SCALE, SOLU-MEDROL 80MG IV Q8H, VITAMIN A DAILY, ZINC SULFATE 220MG PO BID, AND HIS HOME MEDICATIONS WERE RESUMED. TODAY, WE WILL ADD MORPHINE 2MG IV Q4H PRN. WE WILL ADMINISTER TWO UNITS OF PACKED RED BLOOD CELLS. OTHERWISE, WE PLAN TO FOLLOW UP WITH AM LABS AND CONTINUE TO MONITOR. WE WILL DECREASED OXYGEN PATIENT TOLERATES IT. TIME SPENT ON CLINICAL ASSESSMENT, REVIEWING LABS AND IMAGING, DECISION MAKING, AND DOCUMENTATION GREATER THAN 75 MINUTES. - Past Medical Family Social History Past Med/Fam/Surg Hx: No changes since H&P Allergies: Allergies No Known Drug Allergies Allergy (Verified 11/02/21 17:15) - Review of Systems ROS: Changes notes (describe) - Vital Signs and I&O's Vital Signs: Temperature 97.6 F Pulse Rate [Left Brachial] 69 Pulse Rate 70 Respiratory Rate 18 Blood Pressure [Left Arm] 144/68 Blood Pressure 142/63 O2 Sat by Pulse Oximetry 100 Intake and Output: Intake & Output 11/05/21 11/06/21 11/07/21 11/08/21 11:59 11:59 11:59 11:59 Intake Total 3775 / 3775 2730 / 2730 2510 / 2510 1900 / 1900 Output Total 2500 / 2500 1900 / 1900 1000 / 1000 950 / 950 Balance 1275 / 1275 830 / 830 1510 / 1510 950 / 950 - Physical Exam Oriented: Person, Place Eyes: Normal Ear: Normal Nose: Normal Throat: Normal Respiratory: Generalized, Rhonchi Cardiovascular: Normal : Normal Auscultation: Bowel Sounds: Normal Palpation: Normal Tenderness: Normal Skin: Normal Musculoskeletal: Normal Psychiatric: Normal, Agitation Mood Description: Anxious Affect: Anxious Speech Pattern: Delayed, Slurred - Laboratory and Diagnostics Result Diagrams: 11/08/21 05:40 11/08/21 05:40 Labs: 11/03/21 01:00 Urine,Catheterized Urine Culture - Final 11/02/21 17:51 Blood Blood Culture - Preliminary 11/02/21 17:30 Blood Blood Culture - Preliminary 11/02/21 18:09 Sputum - Expectorated Sputum Sputum Culture - Final 11/02/21 18:09 Sputum - Expectorated Sputum - Final Laboratory WBC 13.2 X10^3/uL (3.6-10.0) H 11/08/21 05:40 RBC 1.86 X10^6/uL (4.7-6.0) L 11/08/21 05:40 Hgb 5.1 g/dL (13.5-18.0) L* D 11/08/21 05:40 Hct 15.2 % (42.0-54.0) L* 11/08/21 05:40 MCV 82.1 fL (80.0-100.0) 11/08/21 05:40 MCH 27.5 pg (27.0-34.0) 11/08/21 05:40 MCHC 33.5 g/dL (33.0-35.0) 11/08/21 05:40 RDW 18.5 % (11.6-16.5) H 11/08/21 05:40 Plt Count 217 X10^3/uL (150.0-450.0) 11/08/21 05:40 Plt Count Comment Adequate (ADEQUATE) 11/08/21 05:40 MPV 8.2 fL (7.4-11.0) 11/08/21 05:40 Neut % (Auto) 92.7 % (42.0-75.0) H 11/08/21 05:40 Lymph % (Auto) 2.5 % (21.0-51.0) L 11/08/21 05:40 [place] % (Auto) 4.4 % (0.0-13.0) 11/08/21 05:40 Eos % (Auto) 0.0 % (0.9-2.9) L 11/08/21 05:40 Baso % (Auto) 0.4 % (0.2-1.0) 11/08/21 05:40 Neut # (Auto) 12.2 x10^3/uL (2.2-4.8) H 11/08/21 05:40 Lymph # (Auto) 0.3 X10^3/uL (1.3-2.9) L 11/08/21 05:40 [place] # (Auto) 0.6 x10^3/uL (0.3-0.8) 11/08/21 05:40 Eos # (Auto) 0.0 x10^3/uL (0.0-0.2) 11/08/21 05:40 Baso # (Auto) 0.0 X10^3/uL (0.0-0.1) 11/08/21 05:40 Absolute Nucleated RBC 0.1 /100WBC 11/08/21 05:40 Total Counted 100 11/08/21 05:40 Neutrophils % (Manual) 89 % (39-76) H 11/08/21 05:40 Band Neutrophils % 4 % (0-10) 11/03/21 05:51 Lymphocytes % (Manual) 6 % (13-43) L 11/08/21 05:40 Monocytes % (Manual) 5 % (4-9) 11/08/21 05:40 Plt Morphology Comment Normal (NORMAL) 11/08/21 05:40 RBC Morphology Normal (NORMAL) 11/08/21 05:40 Dimorphic RBCs Slight 11/07/21 03:04 Hypochromasia Slight A 11/07/21 03:04 Poikilocytosis Slight A 11/02/21 17:51 Anisocytosis 1+ A 11/07/21 03:04 Microcytosis 1+ A 11/06/21 05:00 Caryl Cells 2+ A 11/03/21 05:51 Acanthocytes (Spur) 1+ 11/07/21 03:04 PT 15.5 SECONDS (11.8-14.3) 11/03/21 00:40 INR Target Range - 11/03/21 00:40 INR 1.30 (0.8-1.3) 11/03/21 00:40 APTT > 293.0 SECONDS (22.9-36.5) H* 11/08/21 05:40 PTT Comment - 11/08/21 05:40 D-Dimer 4.06 ug/ml (0.0-0.57) H* 11/03/21 08:58 Sample Site Lr 11/08/21 05:00 ABG pH 7.390 (7.35-7.45) 11/08/21 05:00 ABG pCO2 42.0 mmHg (35.0-45.0) 11/08/21 05:00 ABG pO2 124.0 mmHg (80.0-100.0) H 11/08/21 05:00 ABG HCO3 25.4 mmol/L (22-26) 11/08/21 05:00 ABG O2 Saturation 99.0 % (90-100) 11/08/21 05:00 ABG Base Excess 0.3 mmol/L (-2.0-2.0) 11/08/21 05:00 Cristiano Test Pos 11/08/21 05:00 A-a Gradient 144.0 mmHg 11/08/21 05:00 FiO2 45.0 11/08/21 05:00 Blood Gas Comments Angela well sw 11/08/21 05:00 Sodium 145 mmol/L (136-145) 11/08/21 05:40 Corrected Sodium 151 mmol/L (136-145) H 11/08/21 05:40 Potassium 4.2 mmol/L (3.5-5.1) 11/08/21 05:40 Chloride 108 mmol/L (98-107) H 11/08/21 05:40 Carbon Dioxide 25.4 mmol/L (21-32) 11/08/21 05:40 BUN 111 mg/dL (7-18) H 11/08/21 05:40 Creatinine 2.96 mg/dL (0.70-1.30) H 11/08/21 05:40 Est GFR (MDRD) Af Amer 26 (>60) L 11/08/21 05:40 Est GFR (MDRD) Non-Af 22 (>60) L 11/08/21 05:40 Glucose 368 mg/dL (65-99) H 11/08/21 05:40 POC Glucose (mg/dL) 307 mg/dL (65-99) H 11/08/21 05:08 Lactic Acid 1.7 mmol/L (0.4-2.0) 11/02/21 17:51 Calcium 7.9 mg/dL (8.5-10.1) L 11/08/21 05:40 Corrected Calcium 9.3 mg/dL (8.5-10.1) 11/08/21 05:40 Magnesium 1.8 mg/dL (1.7-2.9) 11/05/21 02:38 Total Bilirubin 0.70 mg/dL (0.2-1.0) 11/08/21 05:40 AST 32 Units/L (15-37) 11/08/21 05:40 ALT 37 Units/L (12-78) 11/08/21 05:40 Alkaline Phosphatase 49 Units/L (46-116) 11/08/21 05:40 Creatine Kinase 532 Units/L (39-308) H 11/08/21 05:40 CK-MB (CK-2) 4.6 ng/mL (0-4.0) H* 11/08/21 05:40 CK/CKMB % Calc 0.9 % (<4) 11/08/21 05:40 Troponin I High Sens 63.6 ng/L (4.0-60.0) H* 11/08/21 05:40 C-Reactive Protein 34.70 mg/L (0-3.0) H 11/08/21 05:40 B-Natriuretic Peptide 274 pg/mL (0-79) H 11/08/21 05:40 Total Protein 5.5 g/dL (6.4-8.2) L 11/08/21 05:40 Albumin 2.2 g/dL (3.4-5.0) L 11/08/21 05:40 Globulin 3.3 g/dL (2.5-4.5) 11/08/21 05:40 Albumin/Globulin Ratio 0.7 Ratio (1.1-2.1) L 11/08/21 05:40 Specimen Type Catherized urine 11/03/21 01:00 Urine Color [place] (YELLOW) 11/03/21 01:00 Urine Appearance Clear (CLEAR) 11/03/21 01:00 Urine pH 5.0 (5.0 - 8.0) 11/03/21 01:00 Ur Specific [place] 1.025 (1.000-1.030) 11/03/21 01:00 Urine Protein 2+ (NEGATIVE) 11/03/21 01:00 Urine Glucose (UA) Negative (NEGATIVE) 11/03/21 01:00 Urine Ketones Negative (NEGATIVE) 11/03/21 01:00 Urine Occult Blood 1+ (NEGATIVE) 11/03/21 01:00 Urine Nitrite Negative (NEGATIVE) 11/03/21 01:00 Urine Bilirubin Negative (NEGATIVE) 11/03/21 01:00 Urine Urobilinogen Normal (NORMAL) 11/03/21 01:00 Ur Leukocyte Esterase Negative (NEGATIVE) 11/03/21 01:00 Urine RBC None seen /HPF (0-3) 11/03/21 01:00 Urine WBC 0-2 /HPF (0-5) 11/03/21 01:00 Ur Squamous Epith Cells Negative /HPF (NEGATIVE) 11/03/21 01:00 Urine Bacteria 2+ /HPF (NEGATIVE) 11/03/21 01:00 Ur Culture Indicated? Yes/culture set up 11/03/21 01:00 SARS CoV-2 RNA Rapid BIRGIT Positive (NEGATIVE) A 11/02/21 17:38 Blood Type O POSITIVE 11/08/21 06:17 Antibody Screen Negative 11/08/21 06:17 Crossmatch See Detail 11/08/21 06:17 - Plan (1) Pneumonia due to COVID-19 virus Status: Acute Plan: SUPPLEMENTAL OXYGEN, NORMAL SALINE, HEPARIN DRIP PER PROTOCOL, IV ANTIBIOTICS, IV STEROIDS, NEB TX, IV MORPHINE PRN, IMMUNE SUPPLEMENTS, OTBS ACHS, SSI, CONTINUE HOME MEDS (2) Non Q wave myocardial infarction Status: Acute Plan: Continue current treatment. (3) Hypoxia Status: Acute (4) Acute respiratory distress Status: Acute Plan: Continue nebs, IV abx and Solumedrol. (5) Acute on chronic renal failure Status: Acute Qualifiers: Acute renal failure type: unspecified Chronic kidney disease stage: unspecified stage Qualified Code(s): N17.9 - Acute kidney failure, unspecified; N18.9 - Chronic kidney disease, unspecified (6) Anemia Status: Acute Qualifiers: Anemia type: unspecified type Qualified Code(s): D64.9 - Anemia, unspecified Plan: TRANSFUSE 2 UNITS PRBC
--- NOTE | 2021-11-08 11:00 | PCM.PROG ---
Progress Note - Progress Note for Day of Date of Exam: 11/07/21 - Subjective Subjective: WAS ADMITTED FOR TREATMENT OF PNEUMONIA DUE TO COVID-19, HYPOXIA, RESPIRATORY DISTRESS, ANEMIA, NON-Q WAVE DE, AND ACUTE ON CHRONIC RENAL FAILURE. HE RECEIVED TWO UNITS OF PRBC YESTERDAY. TODAY, PATIENT IS ALERT, LYING IN BED ON MORNING ROUNDS. HE CONTINUES TO BE DISORIENTED AND AGITATED. HIS BREATHING IS LESS LABORED THIS MORNING. HE IS CURRENTLY UTILIZING HEATED HIGH FLOW OXYGEN AT 55%FI02. HIS SATURATIONS HAVE BEEN 99-100% THIS MORNING AND THROUGHOUT THE NIGHT. HE REMAINS ON A HEPARIN DRIP THIS MORNING. FAMILY REPORTS THAT HE HAS NOT HAD A BOWEL MOVEMENT IN SEVERAL DAYS. ON EXAMINATION, HEART IS REGULAR IN RATE AND RHYTHM. BILATERAL LUNGS NOTED WITH SCATTERED RHONCHI THRO UGHOUT. ABDOMEN IS ROUND, SOFT, AND NON-TENDER. HYPOACTIVE BOWEL SOUNDS NOTED IN ALL QUADRANTS. HIS VITALS THIS MORNING ARE: 97.8-68-24-93%-145/68. LABS WERE OBTAINED. WBC 15.9, RBC 3.05, HGB 8.3, HCT 25.1, SODIUM 143, POTASSIUM 4.1, BUN 95, CREATININE 3.00, GLUCOSE 321, AST 40, ALT 41, ALK PHOS 69, CREATINE KINASE 624, CK-MB 6.2, TROPONIN 78.8, CRP 52, BNP 486, ALBUMIN 2.2. TROPONIN CONTINUES TO DECREASE. ABG OBTAINED AND REVEALED: PH 7.370, PC02 44, P02 105, HC03 25.4, 02 SAT 98, A-A GRADIENT 232, FI02 55. BLOOD, SPUTUM, AND URINE CULTURES ARE PENDING. A CHEST XRAY WAS OBTAINED AND REVEALED: Possible mild improvement of pneumonia. HE IS CURRENTLY RECEIVING NORMAL SALINE, HEPARIN DRIP PER PROTOCOL, ZOSYN 3.375 G IV TID, DOXYCYCLINE 100MG PO BID, DUONEBS QID PRN, BROVANA INHALER BID, PULMICORT NEBS BID, FLUVOXAMINE 50MG PO BID, IVERMECTIN DAILY, MORPHINE IV PRN, VITAMIN C 1000MG PO Q6H, OTBS ACHS, HUMULIN R SLIDING SCALE, SOLU-MEDROL 80MG IV Q8H, VITAMIN A DAILY, ZINC SULFATE 220MG PO BID, AND HIS HOME MEDICATIONS WERE RESUMED. TODAY, WE WILL ADD ALBUMIN 25% IV DAILY, HALDOL 2MG IM Q4H PRN AGITATION, AND PROCRIT 5,000 UNITS X 1 DOSE TODAY. OTHERWISE, WE PLAN TO FOLLOW UP WITH AM LABS AND CONTINUE TO MONITOR. WE WILL DECREASE OXYGEN PATIENT TOLERATES IT. TIME SPENT ON CLINICAL ASSESSMENT, REVIEWING LABS AND IMAGING, DECISION MAKING, AND DOCUMENTATION GREATER THAN 75 MINUTES. - Past Medical Family Social History Past Med/Fam/Surg Hx: No changes since H&P Allergies: Allergies No Known Drug Allergies Allergy (Verified 11/02/21 17:15) - Review of Systems ROS: Changes notes (describe) - Vital Signs and I&O's Vital Signs: Temperature 97.6 F Pulse Rate [Left Brachial] 69 Pulse Rate 70 Respiratory Rate 18 Blood Pressure [Left Arm] 144/68 Blood Pressure 142/63 O2 Sat by Pulse Oximetry 100 Intake and Output: Intake & Output 11/05/21 11/06/21 11/07/21 11/08/21 11:59 11:59 11:59 11:59 Intake Total 3775 / 3775 2730 / 2730 2510 / 2510 1900 / 1900 Output Total 2500 / 2500 1900 / 1900 1000 / 1000 950 / 950 Balance 1275 / 1275 830 / 830 1510 / 1510 950 / 950 - Physical Exam Oriented: Not Oriented Eyes: Normal Ear: Normal Nose: Normal Throat: Normal Respiratory: Generalized, Rhonchi Cardiovascular: Normal : Normal Auscultation: Bowel Sounds: Normal Tenderness: Normal Skin: Normal Musculoskeletal: Normal Psychiatric: Normal, Agitation Mood Description: Anxious Affect: Anxious Speech Pattern: Delayed, Slurred - Laboratory and Diagnostics Result Diagrams: 11/08/21 05:40 11/08/21 05:40 Labs: 11/03/21 01:00 Urine,Catheterized Urine Culture - Final 11/02/21 17:51 Blood Blood Culture - Preliminary 11/02/21 17:30 Blood Blood Culture - Preliminary 11/02/21 18:09 Sputum - Expectorated Sputum Sputum Culture - Final 11/02/21 18:09 Sputum - Expectorated Sputum - Final Laboratory WBC 13.2 X10^3/uL (3.6-10.0) H 11/08/21 05:40 RBC 1.86 X10^6/uL (4.7-6.0) L 11/08/21 05:40 Hgb 5.1 g/dL (13.5-18.0) L* D 11/08/21 05:40 Hct 15.2 % (42.0-54.0) L* 11/08/21 05:40 MCV 82.1 fL (80.0-100.0) 11/08/21 05:40 MCH 27.5 pg (27.0-34.0) 11/08/21 05:40 MCHC 33.5 g/dL (33.0-35.0) 11/08/21 05:40 RDW 18.5 % (11.6-16.5) H 11/08/21 05:40 Plt Count 217 X10^3/uL (150.0-450.0) 11/08/21 05:40 Plt Count Comment Adequate (ADEQUATE) 11/08/21 05:40 MPV 8.2 fL (7.4-11.0) 11/08/21 05:40 Neut % (Auto) 92.7 % (42.0-75.0) H 11/08/21 05:40 Lymph % (Auto) 2.5 % (21.0-51.0) L 11/08/21 05:40 [place] % (Auto) 4.4 % (0.0-13.0) 11/08/21 05:40 Eos % (Auto) 0.0 % (0.9-2.9) L 11/08/21 05:40 Baso % (Auto) 0.4 % (0.2-1.0) 11/08/21 05:40 Neut # (Auto) 12.2 x10^3/uL (2.2-4.8) H 11/08/21 05:40 Lymph # (Auto) 0.3 X10^3/uL (1.3-2.9) L 11/08/21 05:40 [place] # (Auto) 0.6 x10^3/uL (0.3-0.8) 11/08/21 05:40 Eos # (Auto) 0.0 x10^3/uL (0.0-0.2) 11/08/21 05:40 Baso # (Auto) 0.0 X10^3/uL (0.0-0.1) 11/08/21 05:40 Absolute Nucleated RBC 0.1 /100WBC 11/08/21 05:40 Total Counted 100 11/08/21 05:40 Neutrophils % (Manual) 89 % (39-76) H 11/08/21 05:40 Band Neutrophils % 4 % (0-10) 11/03/21 05:51 Lymphocytes % (Manual) 6 % (13-43) L 11/08/21 05:40 Monocytes % (Manual) 5 % (4-9) 11/08/21 05:40 Plt Morphology Comment Normal (NORMAL) 11/08/21 05:40 RBC Morphology Normal (NORMAL) 11/08/21 05:40 Dimorphic RBCs Slight 11/07/21 03:04 Hypochromasia Slight A 11/07/21 03:04 Poikilocytosis Slight A 11/02/21 17:51 Anisocytosis 1+ A 11/07/21 03:04 Microcytosis 1+ A 11/06/21 05:00 Caryl Cells 2+ A 11/03/21 05:51 Acanthocytes (Spur) 1+ 11/07/21 03:04 PT 15.5 SECONDS (11.8-14.3) 11/03/21 00:40 INR Target Range - 11/03/21 00:40 INR 1.30 (0.8-1.3) 11/03/21 00:40 APTT > 293.0 SECONDS (22.9-36.5) H* 11/08/21 05:40 PTT Comment - 11/08/21 05:40 D-Dimer 4.06 ug/ml (0.0-0.57) H* 11/03/21 08:58 Sample Site Lr 11/08/21 05:00 ABG pH 7.390 (7.35-7.45) 11/08/21 05:00 ABG pCO2 42.0 mmHg (35.0-45.0) 11/08/21 05:00 ABG pO2 124.0 mmHg (80.0-100.0) H 11/08/21 05:00 ABG HCO3 25.4 mmol/L (22-26) 11/08/21 05:00 ABG O2 Saturation 99.0 % (90-100) 11/08/21 05:00 ABG Base Excess 0.3 mmol/L (-2.0-2.0) 11/08/21 05:00 Cristiano Test Pos 11/08/21 05:00 A-a Gradient 144.0 mmHg 11/08/21 05:00 FiO2 45.0 11/08/21 05:00 Blood Gas Comments Angela well sw 11/08/21 05:00 Sodium 145 mmol/L (136-145) 11/08/21 05:40 Corrected Sodium 151 mmol/L (136-145) H 11/08/21 05:40 Potassium 4.2 mmol/L (3.5-5.1) 11/08/21 05:40 Chloride 108 mmol/L (98-107) H 11/08/21 05:40 Carbon Dioxide 25.4 mmol/L (21-32) 11/08/21 05:40 BUN 111 mg/dL (7-18) H 11/08/21 05:40 Creatinine 2.96 mg/dL (0.70-1.30) H 11/08/21 05:40 Est GFR (MDRD) Af Amer 26 (>60) L 11/08/21 05:40 Est GFR (MDRD) Non-Af 22 (>60) L 11/08/21 05:40 Glucose 368 mg/dL (65-99) H 11/08/21 05:40 POC Glucose (mg/dL) 307 mg/dL (65-99) H 11/08/21 05:08 Lactic Acid 1.7 mmol/L (0.4-2.0) 11/02/21 17:51 Calcium 7.9 mg/dL (8.5-10.1) L 11/08/21 05:40 Corrected Calcium 9.3 mg/dL (8.5-10.1) 11/08/21 05:40 Magnesium 1.8 mg/dL (1.7-2.9) 11/05/21 02:38 Total Bilirubin 0.70 mg/dL (0.2-1.0) 11/08/21 05:40 AST 32 Units/L (15-37) 11/08/21 05:40 ALT 37 Units/L (12-78) 11/08/21 05:40 Alkaline Phosphatase 49 Units/L (46-116) 11/08/21 05:40 Creatine Kinase 532 Units/L (39-308) H 11/08/21 05:40 CK-MB (CK-2) 4.6 ng/mL (0-4.0) H* 11/08/21 05:40 CK/CKMB % Calc 0.9 % (<4) 11/08/21 05:40 Troponin I High Sens 63.6 ng/L (4.0-60.0) H* 11/08/21 05:40 C-Reactive Protein 34.70 mg/L (0-3.0) H 11/08/21 05:40 B-Natriuretic Peptide 274 pg/mL (0-79) H 11/08/21 05:40 Total Protein 5.5 g/dL (6.4-8.2) L 11/08/21 05:40 Albumin 2.2 g/dL (3.4-5.0) L 11/08/21 05:40 Globulin 3.3 g/dL (2.5-4.5) 11/08/21 05:40 Albumin/Globulin Ratio 0.7 Ratio (1.1-2.1) L 11/08/21 05:40 Specimen Type Catherized urine 11/03/21 01:00 Urine Color [place] (YELLOW) 11/03/21 01:00 Urine Appearance Clear (CLEAR) 11/03/21 01:00 Urine pH 5.0 (5.0 - 8.0) 11/03/21 01:00 Ur Specific [place] 1.025 (1.000-1.030) 11/03/21 01:00 Urine Protein 2+ (NEGATIVE) 11/03/21 01:00 Urine Glucose (UA) Negative (NEGATIVE) 11/03/21 01:00 Urine Ketones Negative (NEGATIVE) 11/03/21 01:00 Urine Occult Blood 1+ (NEGATIVE) 11/03/21 01:00 Urine Nitrite Negative (NEGATIVE) 11/03/21 01:00 Urine Bilirubin Negative (NEGATIVE) 11/03/21 01:00 Urine Urobilinogen Normal (NORMAL) 11/03/21 01:00 Ur Leukocyte Esterase Negative (NEGATIVE) 11/03/21 01:00 Urine RBC None seen /HPF (0-3) 11/03/21 01:00 Urine WBC 0-2 /HPF (0-5) 11/03/21 01:00 Ur Squamous Epith Cells Negative /HPF (NEGATIVE) 11/03/21 01:00 Urine Bacteria 2+ /HPF (NEGATIVE) 11/03/21 01:00 Ur Culture Indicated? Yes/culture set up 11/03/21 01:00 SARS CoV-2 RNA Rapid BIRGIT Positive (NEGATIVE) A 11/02/21 17:38 Blood Type O POSITIVE 11/08/21 06:17 Antibody Screen Negative 11/08/21 06:17 Crossmatch See Detail 11/08/21 06:17 - Plan (1) Pneumonia due to COVID-19 virus Status: Acute Plan: SUPPLEMENTAL OXYGEN, NORMAL SALINE, ALBUMIN HEPARIN DRIP PER PROTOCOL, IV ANTIBIOTICS, IV STEROIDS, NEB TX, IV MORPHINE PRN, HALDOL PRN, IMMUNE SUPPLEMENTS, OTBS ACHS, SSI, CONTINUE HOME MEDS (2) Non Q wave myocardial infarction Status: Acute Plan: Continue current treatment. (3) Hypoxia Status: Acute (4) Acute respiratory distress Status: Acute Plan: Continue nebs, IV abx and Solumedrol. (5) Acute on chronic renal failure Status: Acute Qualifiers: Acute renal failure type: unspecified Chronic kidney disease stage: unspecified stage Qualified Code(s): N17.9 - Acute kidney failure, unspecified; N18.9 - Chronic kidney disease, unspecified (6) Anemia Status: Acute Qualifiers: Anemia type: unspecified type Qualified Code(s): D64.9 - Anemia, unspecified Plan: PROCRIT 5,000 UNITS SC X 1 DOSE, MONITOR H&H
--- NOTE | 2021-11-08 13:22 | PCM.PROG ---
Progress Note - Progress Note for Day of Date of Exam: 11/08/21 - Subjective Subjective: WAS ADMITTED FOR TREATMENT OF PNEUMONIA DUE TO COVID-19, HYPOXIA, RESPIRATORY DISTRESS, ANEMIA, NON-Q WAVE DE, AND ACUTE ON CHRONIC RENAL FAILURE. HE RECEIVED TWO UNITS OF PRBC ON SATURDAY. TODAY, PATIENT IS ALERT, LYING IN BED ON MORNING ROUNDS. HE IS LESS AGITATED THIS MORNING. HE IS CURRENTLY UTILIZING HEATED HIGH FLOW OXYGEN AT 35%FI02. HIS SATURATIONS HAVE BEEN 97-100% THIS MORNING AND THROUGHOUT THE NIGHT. FAMILY REPORTS THAT HE HAS NOT HAD A BOWEL MOVEMENT IN SEVERAL DAYS. ON EXAMINATION, HEART IS REGULAR IN RATE AND RHYTHM. BILATERAL LUNGS NOTED WITH SCATTERED RHONCHI THROUGHOUT. ABDOMEN IS DISTENDED. HYPOACTIVE BOWEL SOUNDS NOTED IN ALL QUADRANTS. HIS VITALS THIS MORN ARE: 97.6-74-28-98%-142/63. LABS WERE OBTAINED. WBC 13.2, RBC 1.86, HGB 5.1, HCT 15.2, PTT >293, SODIUM 145, POTASSIUM 4.2, BUN 111, CREATININE 2.96, GLUCOSE 368, CALCIUM 7.9, CREATINE KINASE 532, CK-MB 4.6, TROPONIN 63.6, CRP 34.70, BNP 274, TOTAL PROTEIN 5.5, ALBUMIN 2.2, PREALBUMIN 14.0. TROPONIN CONTINUES TO DECREASE. ABG OBTAINED AND REVEALED: PH 7.390, PC02 42, P02 124, HC03 25.4, 02 SAT 99, A-A GRADIENT 144, FI02 45. BLOOD, SPUTUM, AND URINE CULTURES ARE PENDING. A CHEST XRAY WAS OBTAINED AND REVEALED: Worsened left base consolidation. Other airspace opacities appear similar. Suspect small pleural effusions. KUB OBTAINED YESTERDAY AND REVEALED: Probable mild left-sided constipation. No suggestion of bowel obstruction. Ascites in the abdomen is not excluded. HE IS CURRENTLY RECEIVING NORMAL SALINE, ALBUMIN 25% IV DAILY, HEPARIN DRIP PER PROTOCOL, ZOSYN 3.375G IV TID, DOXYCYCLINE 100MG PO BID, DUONEBS QID PRN, BROVANA INHALER BID, PULMICORT NEBS BID, FLUVOXAMINE 50MG PO BID, I VERMECTIN DAILY, MORPHINE IV PRN, HALDOL IM PRN, PROCRIT 10,000 UNITS SC ON ,,, VITAMIN C 1000MG PO Q6H, OTBS ACHS, HUMULIN R SLIDING SCALE, SOLU-MEDROL 80MG IV Q8H, VITAMIN A DAILY, ZINC SULFATE 220MG PO BID, AND HIS HOME MEDICATIONS WERE RESUMED. TODAY, WE WILL HOLD THE HEPARIN DRIP. WE WILL AD MINSTER TWO UNITS OF PRBC. WE WILL ALSO ADMINISTER DULCOLAX SUPPOSITORIES. WE WILL ADD TPN. OTHERWISE, WE PLAN TO FOLLOW UP WITH AM LABS AND CHEST XRAY AND CONTINUE TO MONITOR. WILL PLACE A CENTRAL LINE. WE WILL DECREASE OXYGEN PATIENT TOLERATES IT. TIME SPENT ON CLINICAL ASSESSMENT, REVIEWING LABS AND IMAGING, DECISION MAKING, AND DOCUMENTATION GREATER THAN 75 MINUTES. - Past Medical Family Social History Past Med/Fam/Surg Hx: No changes since H&P Allergies: Allergies No Known Drug Allergies Allergy (Verified 11/02/21 17:15) - Review of Systems ROS: Changes notes (describe) - Vital Signs and I&O's Vital Signs: Temperature 97.6 F Pulse Rate [Left Brachial] 69 Pulse Rate 70 Respiratory Rate 18 Blood Pressure [Left Arm] 144/68 Blood Pressure 142/63 O2 Sat by Pulse Oximetry 100 Intake and Output: Intake & Output 11/06/21 11/07/21 11/08/21 11/09/21 11:59 11:59 11:59 11:59 Intake Total 2730 / 2730 2510 / 2510 1900 / 1900 Output Total 1900 / 1900 1000 / 1000 950 / 950 Balance 830 / 830 1510 / 1510 950 / 950 - Physical Exam Oriented: Not Oriented Eyes: Normal Ear: Normal Nose: Normal Throat: Normal Respiratory: Generalized, Rhonchi Cardiovascular: Normal : Normal Auscultation: Bowel Sounds: Decreased Tenderness: Normal Skin: Normal Musculoskeletal: Normal Psychiatric: Normal, Agitation Mood Description: Anxious Affect: Anxious Speech Pattern: Delayed, Slurred - Laboratory and Diagnostics Result Diagrams: 11/08/21 05:40 11/08/21 05:40 Labs: 11/02/21 17:51 Blood Blood Culture - Final 11/02/21 17:30 Blood Blood Culture - Final 11/03/21 01:00 Urine,Catheterized Urine Culture - Final 11/02/21 18:09 Sputum - Expectorated Sputum Sputum Culture - Final 11/02/21 18:09 Sputum - Expectorated Sputum - Final Laboratory WBC 13.2 X10^3/uL (3.6-10.0) H 11/08/21 05:40 RBC 1.86 X10^6/uL (4.7-6.0) L 11/08/21 05:40 Hgb 5.1 g/dL (13.5-18.0) L* D 11/08/21 05:40 Hct 15.2 % (42.0-54.0) L* 11/08/21 05:40 MCV 82.1 fL (80.0-100.0) 11/08/21 05:40 MCH 27.5 pg (27.0-34.0) 11/08/21 05:40 MCHC 33.5 g/dL (33.0-35.0) 11/08/21 05:40 RDW 18.5 % (11.6-16.5) H 11/08/21 05:40 Plt Count 217 X10^3/uL (150.0-450.0) 11/08/21 05:40 Plt Count Comment Adequate (ADEQUATE) 11/08/21 05:40 MPV 8.2 fL (7.4-11.0) 11/08/21 05:40 Neut % (Auto) 92.7 % (42.0-75.0) H 11/08/21 05:40 Lymph % (Auto) 2.5 % (21.0-51.0) L 11/08/21 05:40 [place] % (Auto) 4.4 % (0.0-13.0) 11/08/21 05:40 Eos % (Auto) 0.0 % (0.9-2.9) L 11/08/21 05:40 Baso % (Auto) 0.4 % (0.2-1.0) 11/08/21 05:40 Neut # (Auto) 12.2 x10^3/uL (2.2-4.8) H 11/08/21 05:40 Lymph # (Auto) 0.3 X10^3/uL (1.3-2.9) L 11/08/21 05:40 [place] # (Auto) 0.6 x10^3/uL (0.3-0.8) 11/08/21 05:40 Eos # (Auto) 0.0 x10^3/uL (0.0-0.2) 11/08/21 05:40 Baso # (Auto) 0.0 X10^3/uL (0.0-0.1) 11/08/21 05:40 Absolute Nucleated RBC 0.1 /100WBC 11/08/21 05:40 Total Counted 100 11/08/21 05:40 Neutrophils % (Manual) 89 % (39-76) H 11/08/21 05:40 Band Neutrophils % 4 % (0-10) 11/03/21 05:51 Lymphocytes % (Manual) 6 % (13-43) L 11/08/21 05:40 Monocytes % (Manual) 5 % (4-9) 11/08/21 05:40 Plt Morphology Comment Normal (NORMAL) 11/08/21 05:40 RBC Morphology Normal (NORMAL) 11/08/21 05:40 Dimorphic RBCs Slight 11/07/21 03:04 Hypochromasia Slight A 11/07/21 03:04 Poikilocytosis Slight A 11/02/21 17:51 Anisocytosis 1+ A 11/07/21 03:04 Microcytosis 1+ A 11/06/21 05:00 [place] Cells 2+ A 11/03/21 05:51 Acanthocytes (Spur) 1+ 11/07/21 03:04 PT 15.5 SECONDS (11.8-14.3) 11/03/21 00:40 INR Target Range - 11/03/21 00:40 INR 1.30 (0.8-1.3) 11/03/21 00:40 APTT > 293.0 SECONDS (22.9-36.5) H* 11/08/21 05:40 PTT Comment - 11/08/21 05:40 D-Dimer 4.06 ug/ml (0.0-0.57) H* 11/03/21 08:58 Sample Site Lr 11/08/21 05:00 ABG pH 7.390 (7.35-7.45) 11/08/21 05:00 ABG pCO2 42.0 mmHg (35.0-45.0) 11/08/21 05:00 ABG pO2 124.0 mmHg (80.0-100.0) H 11/08/21 05:00 ABG HCO3 25.4 mmol/L (22-26) 11/08/21 05:00 ABG O2 Saturation 99.0 % (90-100) 11/08/21 05:00 ABG Base Excess 0.3 mmol/L (-2.0-2.0) 11/08/21 05:00 Cristiano Test Pos 11/08/21 05:00 A-a Gradient 144.0 mmHg 11/08/21 05:00 FiO2 45.0 11/08/21 05:00 Blood Gas Comments Angela well sw 11/08/21 05:00 Sodium 145 mmol/L (136-145) 11/08/21 05:40 Corrected Sodium 151 mmol/L (136-145) H 11/08/21 05:40 Potassium 4.2 mmol/L (3.5-5.1) 11/08/21 05:40 Chloride 108 mmol/L (98-107) H 11/08/21 05:40 Carbon Dioxide 25.4 mmol/L (21-32) 11/08/21 05:40 BUN 111 mg/dL (7-18) H 11/08/21 05:40 Creatinine 2.96 mg/dL (0.70-1.30) H 11/08/21 05:40 Est GFR (MDRD) Af Amer 26 (>60) L 11/08/21 05:40 Est GFR (MDRD) Non-Af 22 (>60) L 11/08/21 05:40 Glucose 368 mg/dL (65-99) H 11/08/21 05:40 POC Glucose (mg/dL) 307 mg/dL (65-99) H 11/08/21 05:08 Lactic Acid 1.7 mmol/L (0.4-2.0) 11/02/21 17:51 Calcium 7.9 mg/dL (8.5-10.1) L 11/08/21 05:40 Corrected Calcium 9.3 mg/dL (8.5-10.1) 11/08/21 05:40 Magnesium 1.8 mg/dL (1.7-2.9) 11/05/21 02:38 Total Bilirubin 0.70 mg/dL (0.2-1.0) 11/08/21 05:40 AST 32 Units/L (15-37) 11/08/21 05:40 ALT 37 Units/L (12-78) 11/08/21 05:40 Alkaline Phosphatase 49 Units/L (46-116) 11/08/21 05:40 Creatine Kinase 532 Units/L (39-308) H 11/08/21 05:40 CK-MB (CK-2) 4.6 ng/mL (0-4.0) H* 11/08/21 05:40 CK/CKMB % Calc 0.9 % (<4) 11/08/21 05:40 Troponin I High Sens 63.6 ng/L (4.0-60.0) H* 11/08/21 05:40 C-Reactive Protein 34.70 mg/L (0-3.0) H 11/08/21 05:40 B-Natriuretic Peptide 274 pg/mL (0-79) H 11/08/21 05:40 Total Protein 5.5 g/dL (6.4-8.2) L 11/08/21 05:40 Albumin 2.2 g/dL (3.4-5.0) L 11/08/21 05:40 Globulin 3.3 g/dL (2.5-4.5) 11/08/21 05:40 Albumin/Globulin Ratio 0.7 Ratio (1.1-2.1) L 11/08/21 05:40 Prealbumin 14.0 mg/dL (18-35.7) L 11/08/21 05:40 Specimen Type Catherized urine 11/03/21 01:00 Urine Color [place] (YELLOW) 11/03/21 01:00 Urine Appearance Clear (CLEAR) 11/03/21 01:00 Urine pH 5.0 (5.0 - 8.0) 11/03/21 01:00 Ur Specific [place] 1.025 (1.000-1.030) 11/03/21 01:00 Urine Protein 2+ (NEGATIVE) 11/03/21 01:00 Urine Glucose (UA) Negative (NEGATIVE) 11/03/21 01:00 Urine Ketones Negative (NEGATIVE) 11/03/21 01:00 Urine Occult Blood 1+ (NEGATIVE) 11/03/21 01:00 Urine Nitrite Negative (NEGATIVE) 11/03/21 01:00 Urine Bilirubin Negative (NEGATIVE) 11/03/21 01:00 Urine Urobilinogen Normal (NORMAL) 11/03/21 01:00 Ur Leukocyte Esterase Negative (NEGATIVE) 11/03/21 01:00 Urine RBC None seen /HPF (0-3) 11/03/21 01:00 Urine WBC 0-2 /HPF (0-5) 11/03/21 01:00 Ur Squamous Epith Cells Negative /HPF (NEGATIVE) 11/03/21 01:00 Urine Bacteria 2+ /HPF (NEGATIVE) 11/03/21 01:00 Ur Culture Indicated? Yes/culture set up 11/03/21 01:00 SARS CoV-2 RNA Rapid BIRGIT Positive (NEGATIVE) A 11/02/21 17:38 Blood Type O POSITIVE 11/08/21 06:17 Antibody Screen Negative 11/08/21 06:17 Crossmatch See Detail 11/08/21 06:17 - Plan (1) Pneumonia due to COVID-19 virus Status: Acute Plan: SUPPLEMENTAL OXYGEN, NORMAL SALINE, TPN, ALBUMIN, IV ANTIBIOTICS, IV STEROIDS, NEB TX, IV MORPHINE PRN, HALDOL PRN, IMMUNE SUPPLEMENTS, OTBS ACHS, SSI, CONTINUE HOME MEDS (2) Non Q wave myocardial infarction Status: Acute Plan: Continue current treatment. (3) Hypoxia Status: Acute (4) Acute respiratory distress Status: Acute Plan: Continue nebs, IV abx and Solumedrol. (5) Acute on chronic renal failure Status: Acute Qualifiers: Acute renal failure type: unspecified Chronic kidney disease stage: unspecified stage Qualified Code(s): N17.9 - Acute kidney failure, un specified; N18.9 - Chronic kidney disease, unspecified (6) Anemia Status: Acute Qualifiers: Anemia type: unspecified type Qualified Code(s): D64.9 - Anemia, unspecified Plan: TRANSFUSE 2 UNITS PRBC, PROCRIT ON M/W/F, MONITOR H&H (7) Constipation Status: Acute Qualifiers: Constipation type: unspecified constipation type Qualified Code(s): K59.00 - Constipation, unspecified
[2021-11-08] MEDS ORDERED: DULCOLAX SUPPOSITORY 10 MG RECTAL NR (16:19)
[2021-11-08] MEDS: COREG TAB 25 MG PO SCH (20:39)
[2021-11-08] MEDS: ZINC SULFATE PO SCH (20:39)
[2021-11-08] MEDS: RANEXA PO SCH (20:39)
[2021-11-08] MEDS: LUVOX PO SCH (20:39)
[2021-11-08] MEDS: VIBRAMYCIN PO SCH (20:39)
[2021-11-08] MEDS: SNACK - Diabetic Appropriate PO SCH (20:40)
[2021-11-08] MEDS: NORVASC TAB 5 MG PO SCH (20:41)
[2021-11-08 21:19] LABS: HEMATOCRIT 21.5 % (42.0-54.0); HEMOGLOBIN 7.2 g/dL (13.5-18.0)
[2021-11-08] MEDS: [UNRECOGNIZED DRUG - REMARK] IV SCH ×3 (22:09)
[2021-11-09] MEDS: MORPHINE SULFATE INJ 2 MG INJ IVP PRN ×4 (00:26→17:07)
[2021-11-09] MEDS ORDERED: LASIX IVP ONE ×2 (00:30→00:31)
[2021-11-09] MEDS: VITAMIN C PO SCH ×5 (01:02→21:05)
[2021-11-09] MEDS: NS 1,000 ML IV 1,000 ML IV SCH ×3 (02:25→17:06)
[2021-11-09] MEDS: DUONEB 0.5 MG/3 MG (3 mL) NEB PRN (02:57)
[2021-11-09] MEDS: NovoLIN R (or HumuLIN R) SUBCUT PRN ×4 (04:25→21:57)
[2021-11-09] MEDS: SOLU-Medrol 125 MG VIAL IVP SCH ×4 (05:21→21:14)
[2021-11-09 05:24] LABS: BASOPHILS % (AUTO) 0.1 % (0.2-1.0); LYMPHOCYTES # (AUTO) 0.2 X10^3/uL (1.3-2.9); LYMPHOCYTES % (AUTO) 1.6 % (21.0-51.0); MEAN CORPUSCULAR HEMOGLOBIN 28.8 pg (27.0-34.0); MEAN CORPUSCULAR HGB CONC 34.1 g/dL (33.0-35.0); MEAN CORPUSCULAR VOLUME 84.6 fL (80.0-100.0); MEAN PLATELET VOLUME 8.4 fL (7.4-11.0); MONOCYTES # (AUTO) 0.4 x10^3/uL (0.3-0.8); MONOCYTES % (AUTO) 2.9 % (0.0-13.0); NEUTROPHILS # (AUTO) 13.5 x10^3/uL (2.2-4.8); NEUTROPHILS % (AUTO) 95.4 % (42.0-75.0); RED BLOOD COUNT 2.23 X10^6/uL (4.7-6.0); RED CELL DISTRIBUTION WIDTH 17.7 % (11.6-16.5); WHITE BLOOD COUNT 14.2 X10^3/uL (3.6-10.0)
[2021-11-09 05:25] LABS: PREALBUMIN 14.7 mg/dL (18-35.7)
[2021-11-09 05:37] LABS: HEMATOCRIT 18.9 % (42.0-54.0); HEMOGLOBIN 6.4 g/dL (13.5-18.0)
[2021-11-09 06:01] LABS: ALBUMIN 2.6 g/dL (3.4-5.0); CARBON DIOXIDE 24.9 mmol/L (21-32); CKMB % 0.8 % (<4); COR CA(FOR HYPOALB) 9.1 mg/dL (8.5-10.1); CREATININE 2.91 mg/dL (0.70-1.30); TOTAL PROTEIN 5.7 g/dL (6.4-8.2)
[2021-11-09] MEDS: NEURONTIN CAP 100 MG PO SCH ×4 (06:10→22:43)
[2021-11-09 06:22] LABS: CREATINE KINASE MB 5.4 ng/mL (0-4.0)
[2021-11-09 06:29] LABS: PLATELET MORPHOLOGY COMMENT NORMAL (NORMAL)
--- NOTE | 2021-11-09 06:44 | RAD ---
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 Hypo inflation accentuates the heart size. It is likely upper limits normal. Bilateral interstitial ground-glass and alveolar infiltrates are unchanged. Left pleural effusion is likely. Bony thorax is unremarkable.IMPRESSIONNo change hypo inflationNo change bilateral interstitial ground-glass and alveolar infiltratesSuspect left pleural effusionElectronically signed by: ROZ BOND (Nov 09, 2021 06:42:33)
[2021-11-09] MEDS: PEPCID TAB 20 MG PO SCH (07:56)
[2021-11-09] MEDS: LUVOX PO SCH ×3 (07:56→21:20)
[2021-11-09] MEDS: COREG TAB 25 MG PO SCH ×3 (07:56→22:43)
[2021-11-09] MEDS: ISOSORBIDE MONONITRATE ER 24-HR PO SCH ×2 (07:56→09:44)
[2021-11-09] MEDS: COZAAR PO SCH ×2 (07:56→09:43)
[2021-11-09] MEDS: RANEXA PO SCH ×3 (07:56→21:56)
[2021-11-09] MEDS: ZINC SULFATE PO SCH ×3 (07:57→21:56)
[2021-11-09] MEDS: VITAMIN A PO SCH ×2 (07:57→09:44)
[2021-11-09] MEDS: VIBRAMYCIN PO SCH (07:57)
[2021-11-09] MEDS: VITAMIN D3 125 mcg (5,000 UNITS) PO SCH ×2 (07:57→09:44)
[2021-11-09] MEDS: [UNRECOGNIZED DRUG - REMARK] IV SCH ×6 (07:58→20:55)
--- NOTE | 2021-11-09 09:01 | RAD ---
HISTORYAbdominal pain, constipationSTUDYKUBCOMPARISONNone .br.br.br nonobstructive. Mild gastric distension is present. No abnormal masses or abnormal calcifications are identified. Regional skeleton is intact.IMPRESSIONMild gastric distensionElectronically signed by: ROZ BOND (Nov 09, 2021 08:59:59)
[2021-11-09] MEDS: BROVANA IN SCH ×2 (09:18→20:45)
[2021-11-09] MEDS: PULMICORT NEB TX 0.5 MG NEB SCH ×2 (09:18→20:45)
[2021-11-09] MEDS: ALBUMIN HUMAN 25%- 100 ML 100 ML IV SCH (09:45)
--- NOTE | 2021-11-09 09:55 | PCM.PROG ---
Progress Note - Progress Note for Day of Date of Exam: 11/09/21 - Subjective Subjective: WAS ADMITTED FOR TREATMENT OF PNEUMONIA DUE TO COVID-19, HYPOXIA, RESPIRATORY DISTRESS, ANEMIA, NON-Q WAVE ME, AND ACUTE ON CHRONIC RENAL FAILURE. HE HAS RECEIVED FOUR UNITS OF PACKED RED BLOOD CELLS SINCE ADMISSION. TODAY, PATIENT IS ALERT, LYING IN BED ON MORNING ROUNDS. HE CONTINUES TO BE DISORIENTED AND AGITATED AT TIMES. HE IS CURRENTLY UTILIZING OXYGEN VIA NASAL CANNULA AT 4 LPM. HIS SATURATIONS HAVE BEEN 96-100% THIS MORNING AND THROUGHOUT THE NIGHT. FAMILY REPORTS THAT HE HAS NOT HAD A BOWEL MOVEMENT, DESPITE RECEIVING TWO SUPPOSITORIES YESTERDAY. ON EXAMINATION, HEART IS REGULAR IN RATE AND RHYTHM. BILATERAL LUNGS NOTED WITH SCATTERED RHONCHI THROUGHOUT. ABDOMEN IS DISTENDED. HYPOACTIVE BOWEL SOUNDS NOTED IN ALL QUADRANTS. HIS VITALS THIS MORNING ARE: 97.7-69-16-98%-129/59. LABS WERE OBTAINED. WBC 14.2, RBC 2.23, HGB 6.4, HCT 18.9, SODIUM 147, CHLORIDE 110, BUN 110, CREATININE 2.91, GLUCOSE 289, CALCIUM 8.0, CREATINE KINASE 670, CK-MB 5.4, TROPONIN 65.7, CRP 32.50, BNP 529, TOTAL PROTEIN 5.7, ALBUMIN 2.6. A CHEST XRAY WAS OBTAINED AND REVEALED: No change hypo inflation. No change bilateral interstitial ground-glass and alveolar infiltrates. Suspect left pleural effusion. HE IS CURRENTLY RECEIVING NORMAL SALINE, TPN, ALBUMIN 25% IV DAILY, ZOSYN 3.375G IV TID, DUONEBS QID PRN, BROVANA INHALER BID, PULMICORT NEBS BID, FLUVOXAMINE 50MG PO BID, IVERMECTIN D AILY, MORPHINE IV PRN, HALDOL IM PRN, PROCRIT 10,000 UNITS SC ON ,W,F, VITAMIN C 1000MG PO Q6H, OTBS ACHS, HUMULIN R SLIDING SCALE, SOLU-MEDROL 80MG IV Q8H, VITAMIN A DAILY, ZINC SULFATE 220MG PO BID, AND HIS HOME MEDICATIONS WERE RESUMED. TODAY, WE WILL CONTINUE TO HOLD THE HEPARIN DRIP. WE WILL START PEPCID 20MG IV BID, PROTONIX 40MG IV BID. WE WILL CONSULT WITH , GENERAL SURGEON FOR POSSIBLE SCOPES. WE WILL ALSO GIVE SOAP SUDS ENEMAS UNTIL CLEAR. OTHERWISE, WE PLAN TO FOLLOW UP WITH AM LABS AND CHEST XRAY AND CONTINUE TO MONITOR. WE WILL DECREASE OXYGEN PATIENT TOLERATES IT. TIME SPENT ON CLINICAL ASSESSMENT, REVIEWING LABS AND IMAGING, DECISION MAKING, AND DOCUMENTATION GRE ATER THAN 75 MINUTES. - Past Medical Family Social History Past Med/Fam/Surg Hx: No changes since H&P Allergies: Allergies No Known Drug Allergies Allergy (Verified 11/02/21 17:15) - Review of Systems ROS: Changes notes (describe) - Vital Signs and I&O's Vital Signs: Temperature 97.7 F Pulse Rate [Left Brachial] 69 Pulse Rate 69 Respiratory Rate 16 Blood Pressure [Left Arm] 144/68 Blood Pressure 129/59 O2 Sat by Pulse Oximetry 100 Intake and Output: Intake & Output 11/06/21 11/07/21 11/08/21 11/09/21 11:59 11:59 11:59 11:59 Intake Total 2730 / 2730 2510 / 2510 1900 / 1900 2280 / 2280 Output Total 1900 / 1900 1000 / 1000 950 / 950 1800 / 1800 Balance 830 / 830 1510 / 1510 950 / 950 480 / 480 - Physical Exam Oriented: Not Oriented Eyes: Normal Ear: Normal Nose: Normal Throat: Normal Respiratory: Generalized, Rhonchi Cardiovascular: Normal : Normal Auscultation: Bowel Sounds: Decreased Palpation: Normal Tenderness: Normal Skin: Normal Musculoskeletal: Normal Psychiatric: Normal, Agitation Mood Description: Anxious Affect: Anxious Speech Pattern: Clear - Laboratory and Diagnostics Result Diagrams: 11/09/21 04:35 11/09/21 04:35 Labs: 11/02/21 17:51 Blood Blood Culture - Final 11/02/21 17:30 Blood Blood Culture - Final 11/03/21 01:00 Urine,Catheterized Urine Culture - Final 11/02/21 18:09 Sputum - Expectorated Sputum Sputum Culture - Final 11/02/21 18:09 Sputum - Expectorated Sputum - Final Laboratory WBC 14.2 X10^3/uL (3.6-10.0) H 11/09/21 04:35 RBC 2.23 X10^6/uL (4.7-6.0) L 11/09/21 04:35 Hgb 6.4 g/dL (13.5-18.0) L* 11/09/21 04:35 Hct 18.9 % (42.0-54.0) L* 11/09/21 04:35 MCV 84.6 fL (80.0-100.0) 11/09/21 04:35 MCH 28.8 pg (27.0-34.0) 11/09/21 04:35 MCHC 34.1 g/dL (33.0-35.0) 11/09/21 04:35 RDW 17.7 % (11.6-16.5) H 11/09/21 04:35 Plt Count 190 X10^3/uL (150.0-450.0) 11/09/21 04:35 Plt Count Comment Adequate (ADEQUATE) 11/09/21 04:35 MPV 8.4 fL (7.4-11.0) 11/09/21 04:35 Neut % (Auto) 95.4 % (42.0-75.0) H 11/09/21 04:35 Lymph % (Auto) 1.6 % (21.0-51.0) L 11/09/21 04:35 [place] % (Auto) 2.9 % (0.0-13.0) 11/09/21 04:35 Eos % (Auto) 0.0 % (0.9-2.9) L 11/09/21 04:35 Baso % (Auto) 0.1 % (0.2-1.0) L 11/09/21 04:35 Neut # (Auto) 13.5 x10^3/uL (2.2-4.8) H 11/09/21 04:35 Lymph # (Auto) 0.2 X10^3/uL (1.3-2.9) L 11/09/21 04:35 [place] # (Auto) 0.4 x10^3/uL (0.3-0.8) 11/09/21 04:35 Eos # (Auto) 0.0 x10^3/uL (0.0-0.2) 11/09/21 04:35 Baso # (Auto) 0.0 X10^3/uL (0.0-0.1) 11/09/21 04:35 Absolute Nucleated RBC 0.6 /100WBC 11/09/21 04:35 Total Counted 100 11/09/21 04:35 Neutrophils % (Manual) 98 % (39-76) H 11/09/21 04:35 Band Neutrophils % 4 % (0-10) 11/03/21 05:51 Lymphocytes % (Manual) Not Reportable 11/09/21 04:35 Monocytes % (Manual) 2 % (4-9) L 11/09/21 04:35 Plt Morphology Comment Normal (NORMAL) 11/09/21 04:35 RBC Morphology Normal (NORMAL) 11/09/21 04:35 Dimorphic RBCs Slight 11/09/21 04:35 Hypochromasia Slight A 11/07/21 03:04 Poikilocytosis Slight A 11/02/21 17:51 Anisocytosis 1+ A 11/07/21 03:04 Microcytosis 1+ A 11/06/21 05:00 [place] Cells 2+ A 11/03/21 05:51 Acanthocytes (Spur) 1+ 11/07/21 03:04 PT 15.5 SECONDS (11.8-14.3) 11/03/21 00:40 INR Target Range - 11/03/21 00:40 INR 1.30 (0.8-1.3) 11/03/21 00:40 APTT 31.5 SECONDS (22.9-36.5) 11/08/21 13:00 PTT Comment - 11/08/21 13:00 D-Dimer 4.06 ug/ml (0.0-0.57) H* 11/03/21 08:58 Sample Site Lr 11/08/21 05:00 ABG pH 7.390 (7.35-7.45) 11/08/21 05:00 ABG pCO2 42.0 mmHg (35.0-45.0) 11/08/21 05:00 ABG pO2 124.0 mmHg (80.0-100.0) H 11/08/21 05:00 ABG HCO3 25.4 mmol/L (22-26) 11/08/21 05:00 ABG O2 Saturation 99.0 % (90-100) 11/08/21 05:00 ABG Base Excess 0.3 mmol/L (-2.0-2.0) 11/08/21 05:00 Cristiano Test Pos 11/08/21 05:00 A-a Gradient 144.0 mmHg 11/08/21 05:00 FiO2 45.0 11/08/21 05:00 Blood Gas Comments Angela well sw 11/08/21 05:00 Sodium 147 mmol/L (136-145) H 11/09/21 04:35 Corrected Sodium 152 mmol/L (136-145) H 11/09/21 04:35 Potassium 4.1 mmol/L (3.5-5.1) 11/09/21 04:35 Chloride 110 mmol/L (98-107) H 11/09/21 04:35 Carbon Dioxide 24.9 mmol/L (21-32) 11/09/21 04:35 BUN 110 mg/dL (7-18) H 11/09/21 04:35 Creatinine 2.91 mg/dL (0.70-1.30) H 11/09/21 04:35 Est GFR (MDRD) Af Amer 27 (>60) L 11/09/21 04:35 Est GFR (MDRD) Non-Af 22 (>60) L 11/09/21 04:35 Glucose 289 mg/dL (65-99) H 11/09/21 04:35 POC Glucose (mg/dL) 270 mg/dL (65-99) H 11/09/21 08:30 Lactic Acid 1.7 mmol/L (0.4-2.0) 11/02/21 17:51 Calcium 8.0 mg/dL (8.5-10.1) L 11/09/21 04:35 Corrected Calcium 9.1 mg/dL (8.5-10.1) 11/09/21 04:35 Magnesium 1.8 mg/dL (1.7-2.9) 11/05/21 02:38 Total Bilirubin 0.70 mg/dL (0.2-1.0) 11/09/21 04:35 AST 33 Units/L (15-37) 11/09/21 04:35 ALT 41 Units/L (12-78) 11/09/21 04:35 Alkaline Phosphatase 49 Units/L (46-116) 11/09/21 04:35 Creatine Kinase 670 Units/L (39-308) H 11/09/21 04:35 CK-MB (CK-2) 5.4 ng/mL (0-4.0) H* 11/09/21 04:35 CK/CKMB % Calc 0.8 % (<4) 11/09/21 04:35 Troponin I High Sens 65.7 ng/L (4.0-60.0) H* 11/09/21 04:35 C-Reactive Protein 32.50 mg/L (0-3.0) H 11/09/21 04:35 B-Natriuretic Peptide 529 pg/mL (0-79) H* 11/09/21 04:35 Total Protein 5.7 g/dL (6.4-8.2) L 11/09/21 04:35 Albumin 2.6 g/dL (3.4-5.0) L 11/09/21 04:35 Globulin 3.1 g/dL (2.5-4.5) 11/09/21 04:35 Albumin/Globulin Ratio 0.8 Ratio (1.1-2.1) L 11/09/21 04:35 Prealbumin 14.7 mg/dL (18-35.7) L 11/09/21 04:35 Specimen Type Catherized urine 11/03/21 01:00 Urine Color Kimberlyn (YELLOW) 11/03/21 01:00 Urine Appearance Clear (CLEAR) 11/03/21 01:00 Urine pH 5.0 (5.0 - 8.0) 11/03/21 01:00 Ur Specific [place] 1.025 (1.000-1.030) 11/03/21 01:00 Urine Protein 2+ (NEGATIVE) 11/03/21 01:00 Urine Glucose (UA) Negative (NEGATIVE) 11/03/21 01:00 Urine Ketones Negative (NEGATIVE) 11/03/21 01:00 Urine Occult Blood 1+ (NEGATIVE) 11/03/21 01:00 Urine Nitrite Negative (NEGATIVE) 11/03/21 01:00 Urine Bilirubin Negative (NEGATIVE) 11/03/21 01:00 Urine Urobilinogen Normal (NORMAL) 11/03/21 01:00 Ur Leukocyte Esterase Negative (NEGATIVE) 11/03/21 01:00 Urine RBC None seen /HPF (0-3) 11/03/21 01:00 Urine WBC 0-2 /HPF (0-5) 11/03/21 01:00 Ur Squamous Epith Cells Negative /HPF (NEGATIVE) 11/03/21 01:00 Urine Bacteria 2+ /HPF (NEGATIVE) 11/03/21 01:00 Ur Culture Indicated? Yes/culture set up 11/03/21 01:00 SARS CoV-2 RNA Rapid BIRGIT Positive (NEGATIVE) A 11/02/21 17:38 Blood Type O POSITIVE 11/08/21 06:17 Antibody Screen Negative 11/08/21 06:17 Crossmatch See Detail 11/08/21 06:17 - Plan (1) Pneumonia due to COVID-19 virus Status: Acute Plan: SUPPLEMENTAL OXYGEN, NORMAL SALINE, TPN, ALBUMIN, IV ANTIBIOTICS, IV STEROIDS, NEB TX, IV MORPHINE PRN, HALDOL PRN, IMMUNE SUPPLEMENTS, OTBS ACHS, SSI, CONTINUE HOME MEDS (2) Non Q wave myocardial infarction Status: Acute Plan: Continue current treatment. (3) Hypoxia Status: Acute (4) Acute respiratory distress Status: Acute Plan: Continue nebs, IV abx and Solumedrol. (5) Acute on chronic renal failure Status: Acute Qualifiers: Acute renal failure type: unspecified Chronic kidney disease stage: unspecified stage Qualified Code(s): N17.9 - Acute kidney failure, uns pecified; N18.9 - Chronic kidney disease, unspecified (6) Anemia Status: Acute Qualifiers: Anemia type: unspecified type Qualified Code(s): D64.9 - Anemia, unspecified Plan: CONSULT GI, PROCRIT ON M/W/F, MONITOR H&H (7) Constipation Status: Acute Qualifiers: Constipation type: unspecified constipation type Qualified Code(s): K59.00 - Constipation, unspecified Plan: SOAP SUDS ENEMA
[2021-11-09] MEDS: ZOSYN VIAL 3.375 GRAMS 3.375 G in NS 100 ML IV + SPIKE MINIBAG* 100 ML IV SCH ×2 (10:00→20:56)
[2021-11-09] MEDS: PROTONIX INJ 40 MG VIAL IVP SCH ×2 (10:00→20:55)
[2021-11-09] MEDS ORDERED: PEPCID 20 MG IV PREMIX* 20 MG/50 ML BAG IV SCH (10:00)
[2021-11-09] MEDS: PEPCID 20 MG VIAL 20 MG in NS 50 ML IV 50 ML IV SCH (10:30)
[2021-11-09] MEDS: HALDOL INJ IM PRN ×2 (13:38→18:16)
[2021-11-09] MEDS ORDERED: MINERAL OIL RECTAL ONE (18:25)
[2021-11-09 18:37] LABS: HEMATOCRIT 19.6 % (42.0-54.0); HEMOGLOBIN 6.5 g/dL (13.5-18.0)
[2021-11-09] MEDS ORDERED: LASIX ONE (20:35)
[2021-11-09] MEDS: LASIX IVP ONE (20:55)
[2021-11-09] MEDS: SNACK - Diabetic Appropriate PO SCH (21:21)
[2021-11-09] MEDS: NORVASC TAB 5 MG PO SCH (22:43)
[2021-11-10] MEDS: VITAMIN C PO SCH ×4 (00:15→21:42)
[2021-11-10] MEDS: DUONEB 0.5 MG/3 MG (3 mL) NEB PRN (00:23)
[2021-11-10 00:47] LABS: HEMATOCRIT 20.6 % (42.0-54.0)
[2021-11-10 00:52] LABS: HEMOGLOBIN 6.9 g/dL (13.5-18.0)
[2021-11-10] MEDS: HALDOL INJ IM PRN (01:50)
[2021-11-10 05:56] LABS: BASOPHILS # (AUTO) 0.1 X10^3/uL (0.0-0.1); BASOPHILS % (AUTO) 0.4 % (0.2-1.0); HEMATOCRIT 20.5 % (42.0-54.0); LYMPHOCYTES # (AUTO) 0.2 X10^3/uL (1.3-2.9); MEAN CORPUSCULAR HEMOGLOBIN 28.7 pg (27.0-34.0); MEAN CORPUSCULAR HGB CONC 33.2 g/dL (33.0-35.0); MEAN CORPUSCULAR VOLUME 86.5 fL (80.0-100.0); MEAN PLATELET VOLUME 8.5 fL (7.4-11.0); MONOCYTES # (AUTO) 0.2 x10^3/uL (0.3-0.8); MONOCYTES % (AUTO) 1.2 % (0.0-13.0); NEUTROPHILS # (AUTO) 18.5 x10^3/uL (2.2-4.8); NEUTROPHILS % (AUTO) 97.4 % (42.0-75.0); RED BLOOD COUNT 2.37 X10^6/uL (4.7-6.0); RED CELL DISTRIBUTION WIDTH 18.2 % (11.6-16.5)
[2021-11-10] MEDS: SOLU-Medrol 125 MG VIAL IVP SCH (06:10)
[2021-11-10] MEDS: NEURONTIN CAP 100 MG PO SCH ×2 (06:10→21:43)
[2021-11-10 06:12] LABS: HEMOGLOBIN 6.8 g/dL (13.5-18.0)
[2021-11-10] MEDS: MORPHINE SULFATE INJ 2 MG INJ IVP PRN ×2 (06:20)
[2021-11-10 06:21] LABS: ALBUMIN 2.9 g/dL (3.4-5.0); CALCIUM 8.3 mg/dL (8.5-10.1); CARBON DIOXIDE 26.9 mmol/L (21-32); CKMB % 0.9 % (<4); COR CA(FOR HYPOALB) 9.2 mg/dL (8.5-10.1); CREATININE 2.5 mg/dL (0.70-1.30); TOTAL PROTEIN 6.2 g/dL (6.4-8.2)
[2021-11-10 06:24] LABS: CREATINE KINASE MB 4.5 ng/mL (0-4.0)
[2021-11-10] MEDS: [UNRECOGNIZED DRUG - REMARK] IV SCH ×6 (06:52→09:54)
[2021-11-10] MEDS: LASIX IVP ONE (06:52)
--- NOTE | 2021-11-10 07:09 | RAD ---
HISTORYCOVID+, CHFSTUDYCHEST, 1 [id number]/27/2022.TECHNIQUEAP view of the chestFINDINGSBilateral chest wall cardiac device is appears similar. There are multiple other overlying wires which limit evaluation. The cardiac silhouette is stably enlarged. Mediastinal contours appear stable. No significant change in moderate bilateral airspace and interstitial opacities. Cannot exclude small left pleural effusion. No pneumothorax.IMPRESSIONNo significant change.Electronically signed by: Orlando Martinez (Nov 10, 2021 07:08:00)
[2021-11-10] MEDS: NS 1,000 ML IV 1,000 ML IV SCH ×2 (07:28→21:43)
[2021-11-10 07:29] LABS: PLATELET MORPHOLOGY COMMENT NORMAL (NORMAL)
[2021-11-10 07:30] LABS: ANISOCYTOSIS SLIGHT; SCHISTOCYTES SLIGHT
[2021-11-10] MEDS: BROVANA IN SCH ×2 (09:17→21:07)
[2021-11-10] MEDS: PULMICORT NEB TX 0.5 MG NEB SCH ×2 (09:17→21:07)
[2021-11-10] MEDS ORDERED: SALINE 0.9% 3 ML NEB TX ONE (09:40)
[2021-11-10] MEDS: COREG TAB 25 MG PO SCH ×2 (09:54→21:42)
[2021-11-10] MEDS: ALBUMIN HUMAN 25%- 100 ML 100 ML IV SCH (09:54)
[2021-11-10] MEDS: ISOSORBIDE MONONITRATE ER 24-HR PO SCH (09:55)
[2021-11-10] MEDS: LUVOX PO SCH ×2 (09:55→21:43)
[2021-11-10] MEDS: COZAAR PO SCH (09:55)
[2021-11-10] MEDS: PROTONIX INJ 40 MG VIAL IVP SCH ×2 (09:56→21:43)
[2021-11-10] MEDS: PEPCID 20 MG VIAL 20 MG in NS 50 ML IV 50 ML IV SCH (09:56)
[2021-11-10] MEDS: VITAMIN A PO SCH (09:57)
[2021-11-10] MEDS: RANEXA PO SCH ×2 (09:57→21:44)
[2021-11-10] MEDS: ZINC SULFATE PO SCH ×2 (09:58→21:44)
[2021-11-10] MEDS: VITAMIN D3 125 mcg (5,000 UNITS) PO SCH (09:58)
[2021-11-10] MEDS: ZOSYN VIAL 3.375 GRAMS 3.375 G in NS 100 ML IV + SPIKE MINIBAG* 100 ML IV SCH ×2 (09:58→21:44)
[2021-11-10] MEDS: PROCRIT or EPOGEN VIAL 10,000 UNITS SC SCH (10:00)
[2021-11-10] MEDS: DUONEB 0.5 MG/3 MG (3 mL) NEB SCH ×4 (10:17→21:07)
[2021-11-10] MEDS: MUCOMYST 20% 200 MG/ML NEB SCH ×4 (10:17→21:07)
--- NOTE | 2021-11-10 10:32 | PCM.PROG ---
Progress Note - Progress Note for Day of Date of Exam: 11/10/21 - Subjective Subjective: WAS ADMITTED FOR TREATMENT OF PNEUMONIA DUE TO COVID-19, HYPOXIA, RESPIRATORY DISTRESS, ANEMIA, NON-Q WAVE SD, AND ACUTE ON CHRONIC RENAL FAILURE. HE HAS RECEIVED FOUR UNITS OF PACKED RED BLOOD CELLS SINCE ADMISSION. TODAY, PATIENT IS LYING IN BED WITH EYES CLOSED ON MORNING ROUNDS. FAMILY REPORTS THAT HE HE CONTINUES TO BE DISORIENTED AND AGITATED AT TIMES. HE IS CURRENTLY UTILIZING OXYGEN VIA NASAL CANNULA AT 4-5 LPM. HIS SATURATIONS HAVE BEEN 90-97% THIS MORNING AND THROUGHOUT THE NIGHT. STAFF REPORTS THAT HE HAD A SMALL BOWEL MOVEMENT AFTER RECEIVING ENEMAS YESTERDAY. ON EXAMINATION, HEART IS REGULAR IN RATE AND RHYTHM. BILATERAL LUNGS NOTED WITH SCATTERED RHONCHI THROUG HOUT. ABDOMEN IS DISTENDED. HYPOACTIVE BOWEL SOUNDS NOTED IN ALL QUADRANTS. HIS VITALS THIS MORNING ARE: 97.6-70-23-97%-174/80. LABS WERE OBTAINED. WBC 19.0, RBC 2.37, HGB 6.8, HCT 20.5, SODIUM 148, CHLORIDE 111, BUN 101, CREATININE 2.50, GLUCOSE 288, CALCIUM 8.3, TOTAL BILI 1.10, CREATINE KINASE 519, CK-MB 4.5, TROPONIN 84.4, CRP 35.50, BNP 751, TOTAL PROTEIN 6.2, ALBUMIN 2.9. A CHEST XRAY WAS OBTAINED AND REVEALED: Bilateral chest wall cardiac device is appears similar. There are multiple other overlying wires which limit evaluation. The cardiac silhouette is stably enlarged. Mediastinal contours appear stable. No significant change in moderate bilateral airspace and interstitial opacities. Cannot exclude small left pleural effusion. No pneumothorax. HE IS CURRENTLY RECEIVING NORMAL SALINE, TPN, ALBUMIN 25% IV DAILY, ZOSYN 3.375G IV TID, DUONEBS QID, BROVANA INHALER BID, PULMICORT NEBS BID, PEPCID IV, PROTONIX IV, FLUVOXAMINE 50MG PO BID, IVERMECTIN DAILY, MORPHINE IV PRN, HALDOL IM PRN, PROCRIT 10,000 UNITS SC ON ,,, VITAMIN C 1000MG PO Q6H, OTBS ACHS, HUMULIN R SLIDING SCALE, SOLU-MEDROL 80MG IV Q8H, VITAMIN A DAILY, ZINC SULFATE 220MG PO BID, AND HIS HOME MEDICATIONS WERE RESUMED. WE WILL CONTINUE TO HOLD THE HEPARIN. WE WILL DECREASE SOLU-MEDROL TO 40MG IV Q8H. WE WILL ALSO ADD MUCOMYST TO NEB TX QID. WILL CONSULT WITH PATIENT. DUE TO CRITICAL SHORTAGE OF BLOOD, WE WILL MONITOR H&H Q8H TO ASSESS THEN NEED FOR FURTHER TRANSFUSIONS. OTHERWISE, WE PLAN TO FOLLOW UP WITH AM LABS AND CHEST XRAY AND CONTINUE TO MONITOR. WE WILL DECREASE OXYGEN PATIENT TOLERATES IT. TIME SPENT ON CLINICAL ASSESSMENT, REVIEWING LABS AND IMAGING, DECISION MAKING, AND DOCUMENTATION GREATER THAN 75 MINUTES. - Past Medical Family Social History Past Med/Fam/Surg Hx: No changes since H&P Allergies: Allergies No Known Drug Allergies Allergy (Verified 11/02/21 17:15) - Review of Systems ROS: Changes notes (describe) - Vital Signs and I&O's Vital Signs: Temperature 97.6 F Pulse Rate [Left Brachial] 69 Pulse Rate 70 Respiratory Rate 23 Blood Pressure [Left Arm] 144/68 Blood Pressure 174/80 O2 Sat by Pulse Oximetry 88 Intake and Output: Intake & Output 11/07/21 11/08/21 11/09/21 11/10/21 11:59 11:59 11:59 11:59 Intake Total 2510 / 2510 1900 / 1900 2280 / 2280 2590 / 2590 Output Total 1000 / 1000 950 / 950 1800 / 1800 3700 / 3700 Balance 1510 / 1510 950 / 950 480 / 480 -1110 / -1110 - Physical Exam Oriented: Not Oriented Eyes: Normal Ear: Normal Nose: Normal Throat: Normal Respiratory: Generalized, Rhonchi Cardiovascular: Normal : Normal Auscultation: Bowel Sounds: Decreased Tenderness: Normal Skin: Normal Musculoskeletal: Normal Psychiatric: Normal, Agitation Mood Description: Anxious Affect: Anxious Speech Pattern: Clear - Laboratory and Diagnostics Result Diagrams: 11/10/21 05:25 11/10/21 05:25 Labs: 11/02/21 17:51 Blood Blood Culture - Final 11/02/21 17:30 Blood Blood Culture - Final 11/03/21 01:00 Urine,Catheterized Urine Culture - Final 11/02/21 18:09 Sputum - Expectorated Sputum Sputum Culture - Final 11/02/21 18:09 Sputum - Expectorated Sputum - Final Laboratory WBC 19.0 X10^3/uL (3.6-10.0) H 11/10/21 05:25 RBC 2.37 X10^6/uL (4.7-6.0) L 11/10/21 05:25 Hgb 6.8 g/dL (13.5-18.0) L* 11/10/21 05:25 Hct 20.5 % (42.0-54.0) L 11/10/21 05:25 MCV 86.5 fL (80.0-100.0) 11/10/21 05:25 MCH 28.7 pg (27.0-34.0) 11/10/21 05:25 MCHC 33.2 g/dL (33.0-35.0) 11/10/21 05:25 RDW 18.2 % (11.6-16.5) H 11/10/21 05:25 Plt Count 206 X10^3/uL (150.0-450.0) 11/10/21 05:25 Plt Count Comment Adequate (ADEQUATE) 11/10/21 05:25 MPV 8.5 fL (7.4-11.0) 11/10/21 05:25 Neut % (Auto) 97.4 % (42.0-75.0) H 11/10/21 05:25 Lymph % (Auto) 1.0 % (21.0-51.0) L 11/10/21 05:25 [place] % (Auto) 1.2 % (0.0-13.0) 11/10/21 05:25 Eos % (Auto) 0.0 % (0.9-2.9) L 11/10/21 05:25 Baso % (Auto) 0.4 % (0.2-1.0) 11/10/21 05:25 Neut # (Auto) 18.5 x10^3/uL (2.2-4.8) H 11/10/21 05:25 Lymph # (Auto) 0.2 X10^3/uL (1.3-2.9) L 11/10/21 05:25 [place] # (Auto) 0.2 x10^3/uL (0.3-0.8) L 11/10/21 05:25 Eos # (Auto) 0.0 x10^3/uL (0.0-0.2) 11/10/21 05:25 Baso # (Auto) 0.1 X10^3/uL (0.0-0.1) 11/10/21 05:25 Absolute Nucleated RBC 0.2 /100WBC 11/10/21 05:25 Total Counted 100 11/10/21 05:25 Neutrophils % (Manual) 99 % (39-76) H 11/10/21 05:25 Band Neutrophils % 4 % (0-10) 11/03/21 05:51 Lymphocytes % (Manual) 1 % (13-43) L 11/10/21 05:25 Monocytes % (Manual) 2 % (4-9) L 11/09/21 04:35 Plt Morphology Comment Normal (NORMAL) 11/10/21 05:25 RBC Morphology Abnormal (NORMAL) 11/10/21 05:25 Dimorphic RBCs Slight 11/10/21 05:25 Hypochromasia Slight A 11/07/21 03:04 Poikilocytosis Slight A 11/02/21 17:51 Anisocytosis Slight A 11/10/21 05:25 Microcytosis 1+ A 11/06/21 05:00 [place] Cells 2+ A 11/03/21 05:51 Acanthocytes (Spur) 1+ 11/07/21 03:04 Schistocytes Slight A 11/10/21 05:25 PT 15.5 SECONDS (11.8-14.3) 11/03/21 00:40 INR Target Range - 11/03/21 00:40 INR 1.30 (0.8-1.3) 11/03/21 00:40 APTT 31.5 SECONDS (22.9-36.5) 11/08/21 13:00 PTT Comment - 11/08/21 13:00 D-Dimer 4.06 ug/ml (0.0-0.57) H* 11/03/21 08:58 Sample Site Lr 11/08/21 05:00 ABG pH 7.390 (7.35-7.45) 11/08/21 05:00 ABG pCO2 42.0 mmHg (35.0-45.0) 11/08/21 05:00 ABG pO2 124.0 mmHg (80.0-100.0) H 11/08/21 05:00 ABG HCO3 25.4 mmol/L (22-26) 11/08/21 05:00 ABG O2 Saturation 99.0 % (90-100) 11/08/21 05:00 ABG Base Excess 0.3 mmol/L (-2.0-2.0) 11/08/21 05:00 Cristiano Test Pos 11/08/21 05:00 A-a Gradient 144.0 mmHg 11/08/21 05:00 FiO2 45.0 11/08/21 05:00 Blood Gas Comments Angela well sw 11/08/21 05:00 Sodium 148 mmol/L (136-145) H 11/10/21 05:25 Corrected Sodium 153 mmol/L (136-145) H 11/10/21 05:25 Potassium 3.9 mmol/L (3.5-5.1) 11/10/21 05:25 Chloride 111 mmol/L (98-107) H 11/10/21 05:25 Carbon Dioxide 26.9 mmol/L (21-32) 11/10/21 05:25 BUN 101 mg/dL (7-18) H 11/10/21 05:25 Creatinine 2.50 mg/dL (0.70-1.30) H 11/10/21 05:25 Est GFR (MDRD) Af Amer 32 (>60) L 11/10/21 05:25 Est GFR (MDRD) Non-Af 26 (>60) L 11/10/21 05:25 Glucose 288 mg/dL (65-99) H 11/10/21 05:25 POC Glucose (mg/dL) 230 mg/dL (65-99) H 11/09/21 23:39 Lactic Acid 1.7 mmol/L (0.4-2.0) 11/02/21 17:51 Calcium 8.3 mg/dL (8.5-10.1) L 11/10/21 05:25 Corrected Calcium 9.2 mg/dL (8.5-10.1) 11/10/21 05:25 Magnesium 1.8 mg/dL (1.7-2.9) 11/05/21 02:38 Total Bilirubin 1.10 mg/dL (0.2-1.0) H 11/10/21 05:25 AST 30 Units/L (15-37) 11/10/21 05:25 ALT 45 Units/L (12-78) 11/10/21 05:25 Alkaline Phosphatase 55 Units/L (46-116) 11/10/21 05:25 Creatine Kinase 519 Units/L (39-308) H 11/10/21 05:25 CK-MB (CK-2) 4.5 ng/mL (0-4.0) H* 11/10/21 05:25 CK/CKMB % Calc 0.9 % (<4) 11/10/21 05:25 Troponin I High Sens 84.4 ng/L (4.0-60.0) H* 11/10/21 05:25 C-Reactive Protein 35.50 mg/L (0-3.0) H 11/10/21 05:25 B-Natriuretic Peptide 751 pg/mL (0-79) H* 11/10/21 05:25 Total Protein 6.2 g/dL (6.4-8.2) L 11/10/21 05:25 Albumin 2.9 g/dL (3.4-5.0) L 11/10/21 05:25 Globulin 3.3 g/dL (2.5-4.5) 11/10/21 05:25 Albumin/Globulin Ratio 0.9 Ratio (1.1-2.1) L 11/10/21 05:25 Prealbumin 14.7 mg/dL (18-35.7) L 11/09/21 04:35 Specimen Type Catherized urine 11/03/21 01:00 Urine Color [place] (YELLOW) 11/03/21 01:00 Urine Appearance Clear (CLEAR) 11/03/21 01:00 Urine pH 5.0 (5.0 - 8.0) 11/03/21 01:00 Ur Specific [place] 1.025 (1.000-1.030) 11/03/21 01:00 Urine Protein 2+ (NEGATIVE) 11/03/21 01:00 Urine Glucose (UA) Negative (NEGATIVE) 11/03/21 01:00 Urine Ketones Negative (NEGATIVE) 11/03/21 01:00 Urine Occult Blood 1+ (NEGATIVE) 11/03/21 01:00 Urine Nitrite Negative (NEGATIVE) 11/03/21 01:00 Urine Bilirubin Negative (NEGATIVE) 11/03/21 01:00 Urine Urobilinogen Normal (NORMAL) 11/03/21 01:00 Ur Leukocyte Esterase Negative (NEGATIVE) 11/03/21 01:00 Urine RBC None seen /HPF (0-3) 11/03/21 01:00 Urine WBC 0-2 /HPF (0-5) 11/03/21 01:00 Ur Squamous Epith Cells Negative /HPF (NEGATIVE) 11/03/21 01:00 Urine Bacteria 2+ /HPF (NEGATIVE) 11/03/21 01:00 Ur Culture Indicated? Yes/culture set up 11/03/21 01:00 SARS CoV-2 RNA Rapid BIRGIT Positive (NEGATIVE) A 11/02/21 17:38 Blood Type O POSITIVE 11/08/21 06:17 Antibody Screen Negative 11/08/21 06:17 Crossmatch See Detail 11/08/21 06:17 - Plan (1) Pneumonia due to COVID-19 virus Status: Acute Plan: SUPPLEMENTAL OXYGEN, NORMAL SALINE, TPN, ALBUMIN, IV ANTIBIOTICS, IV STEROIDS, NEB TX, IV MORPHINE PRN, HALDOL PRN, IMMUNE SUPPLEMENTS, OTBS ACHS, SSI, CONTINUE HOME MEDS (2) Non Q wave myocardial infarction Status: Acute Plan: Continue current treatment. (3) Hypoxia Status: Acute (4) Acute respiratory distress Status: Acute Plan: Continue nebs, IV abx and Solumedrol. (5) Acute on chronic renal failure Status: Acute Qualifiers: Acute renal failure type: unspecified Chronic kidney disease stage: unspecified stage Qualified Code(s): N17.9 - Acute kidney failure, unspecified; N18.9 - Chronic kidney disease, unspecified (6) Anemia Status: Acute Qualifiers: Anemia type: unspecified type Qualified Code(s): D64.9 - Anemia, unspecified Plan: CONSULT GI, PROCRIT ON M/W/F, MONITOR H&H (7) Constipation Status: Acute Qualifiers: Constipation type: unspecified constipation type Qualified Code(s): K59.00 - Constipation, unspecified
--- NOTE | 2021-11-10 10:36 | RAD ---
HISTORYConstipationSTUDYKUBCOMPARISON r.br.br.br.br.br nonspecific and nonobstructive. Previously noted gastric distension is no longer present. No abnormal masses or abnormal calcifications are identified. There is moderate stool present in the right and proximal transverse colon. Regional skeleton is intact.IMPRESSIONNonspecific, nonobstructive bowel gas patternElectronically signed by: ROZ BOND (Nov 10, 2021 10:34:33)
[2021-11-10] MEDS ORDERED: NEOSTIGMINE INJ IV PRN (11:27)
--- NOTE | 2021-11-10 12:43 | DR.PROGNOT ---
Hospital Progress Notes - Progress Note for Day of: Progress Note Date: 11/10/21 - Chief Complaint Chief Complaint: still c/o abdominal pain, distention with no BM for few days . Pt is agitated , confused and restless . Na 148 , Tropon 84.4 . BUN/Crat 101/2.5 - Past Medical Family Social History Past Med/Fam/Surg Hx: No changes since H&P Allergies: Allergies No Known Drug Allergies Allergy (Verified 11/02/21 17:15) - Review Of Systems ROS: Changes notes (describe) Changes in ROS: Hallucinations - Vital Signs Vital Signs: Temperature 97.6 F Pulse Rate [Left Brachial] 69 Pulse Rate 69 Respiratory Rate 33 Blood Pressure [Left Arm] 144/68 Blood Pressure 164/73 O2 Sat by Pulse Oximetry 90 - Physical Exam Oriented: Not Oriented Eyes: Normal Ear: Normal Nose: Normal Throat: Normal Respiratory: Generalized, Rhonchi Cardiovascular: Normal : Normal GI:Auscultation: Decreased GI:Palpation: Normal GI: Tenderness: Other (distended abdomen , tympanic . with diffuse tenderness , no rebound ,BS hypoactive .) Skin: Normal Musculoskeletal: Normal Psychiatric: Normal, Agitation Mood Description: Anxious Affect: Anxious Speech Pattern: Clear - Laboratory and Diagnostics Result Diagrams: 11/10/21 05:25 11/10/21 05:25 Labs: 11/02/21 17:51 Blood Blood Culture - Final 11/02/21 17:30 Blood Blood Culture - Final 11/03/21 01:00 Urine,Catheterized Urine Culture - Final 11/02/21 18:09 Sputum - Expectorated Sputum Sputum Culture - Final 11/02/21 18:09 Sputum - Expectorated Sputum - Final Laboratory WBC 19.0 X10^3/uL (3.6-10.0) H 11/10/21 05:25 RBC 2.37 X10^6/uL (4.7-6.0) L 11/10/21 05:25 Hgb 6.8 g/dL (13.5-18.0) L* 11/10/21 05:25 Hct 20.5 % (42.0-54.0) L 11/10/21 05:25 MCV 86.5 fL (80.0-100.0) 11/10/21 05:25 MCH 28.7 pg (27.0-34.0) 11/10/21 05:25 MCHC 33.2 g/dL (33.0-35.0) 11/10/21 05:25 RDW 18.2 % (11.6-16.5) H 11/10/21 05:25 Plt Count 206 X10^3/uL (150.0-450.0) 11/10/21 05:25 Plt Count Comment Adequate (ADEQUATE) 11/10/21 05:25 MPV 8.5 fL (7.4-11.0) 11/10/21 05:25 Neut % (Auto) 97.4 % (42.0-75.0) H 11/10/21 05:25 Lymph % (Auto) 1.0 % (21.0-51.0) L 11/10/21 05:25 [place] % (Auto) 1.2 % (0.0-13.0) 11/10/21 05:25 Eos % (Auto) 0.0 % (0.9-2.9) L 11/10/21 05:25 Baso % (Auto) 0.4 % (0.2-1.0) 11/10/21 05:25 Neut # (Auto) 18.5 x10^3/uL (2.2-4.8) H 11/10/21 05:25 Lymph # (Auto) 0.2 X10^3/uL (1.3-2.9) L 11/10/21 05:25 [place] # (Auto) 0.2 x10^3/uL (0.3-0.8) L 11/10/21 05:25 Eos # (Auto) 0.0 x10^3/uL (0.0-0.2) 11/10/21 05:25 Baso # (Auto) 0.1 X10^3/uL (0.0-0.1) 11/10/21 05:25 Absolute Nucleated RBC 0.2 /100WBC 11/10/21 05:25 Total Counted 100 11/10/21 05:25 Neutrophils % (Manual) 99 % (39-76) H 11/10/21 05:25 Band Neutrophils % 4 % (0-10) 11/03/21 05:51 Lymphocytes % (Manual) 1 % (13-43) L 11/10/21 05:25 Monocytes % (Manual) 2 % (4-9) L 11/09/21 04:35 Plt Morphology Comment Normal (NORMAL) 11/10/21 05:25 RBC Morphology Abnormal (NORMAL) 11/10/21 05:25 Dimorphic RBCs Slight 11/10/21 05:25 Hypochromasia Slight A 11/07/21 03:04 Poikilocytosis Slight A 11/02/21 17:51 Anisocytosis Slight A 11/10/21 05:25 Microcytosis 1+ A 11/06/21 05:00 [place] Cells 2+ A 11/03/21 05:51 Acanthocytes (Spur) 1+ 11/07/21 03:04 Schistocytes Slight A 11/10/21 05:25 PT 15.5 SECONDS (11.8-14.3) 11/03/21 00:40 INR Target Range - 11/03/21 00:40 INR 1.30 (0.8-1.3) 11/03/21 00:40 APTT 31.5 SECONDS (22.9-36.5) 11/08/21 13:00 PTT Comment - 11/08/21 13:00 D-Dimer 4.06 ug/ml (0.0-0.57) H* 11/03/21 08:58 Sample Site Lr 11/08/21 05:00 ABG pH 7.390 (7.35-7.45) 11/08/21 05:00 ABG pCO2 42.0 mmHg (35.0-45.0) 11/08/21 05:00 ABG pO2 124.0 mmHg (80.0-100.0) H 11/08/21 05:00 ABG HCO3 25.4 mmol/L (22-26) 11/08/21 05:00 ABG O2 Saturation 99.0 % (90-100) 11/08/21 05:00 ABG Base Excess 0.3 mmol/L (-2.0-2.0) 11/08/21 05:00 Cristiano Test Pos 11/08/21 05:00 A-a Gradient 144.0 mmHg 11/08/21 05:00 FiO2 45.0 11/08/21 05:00 Blood Gas Comments Angela well sw 11/08/21 05:00 Sodium 148 mmol/L (136-145) H 11/10/21 05:25 Corrected Sodium 153 mmol/L (136-145) H 11/10/21 05:25 Potassium 3.9 mmol/L (3.5-5.1) 11/10/21 05:25 Chloride 111 mmol/L (98-107) H 11/10/21 05:25 Carbon Dioxide 26.9 mmol/L (21-32) 11/10/21 05:25 BUN 101 mg/dL (7-18) H 11/10/21 05:25 Creatinine 2.50 mg/dL (0.70-1.30) H 11/10/21 05:25 Est GFR (MDRD) Af Amer 32 (>60) L 11/10/21 05:25 Est GFR (MDRD) Non-Af 26 (>60) L 11/10/21 05:25 Glucose 288 mg/dL (65-99) H 11/10/21 05:25 POC Glucose (mg/dL) 308 mg/dL (65-99) H 11/10/21 12:10 Lactic Acid 1.7 mmol/L (0.4-2.0) 11/02/21 17:51 Calcium 8.3 mg/dL (8.5-10.1) L 11/10/21 05:25 Corrected Calcium 9.2 mg/dL (8.5-10.1) 11/10/21 05:25 Magnesium 1.8 mg/dL (1.7-2.9) 11/05/21 02:38 Total Bilirubin 1.10 mg/dL (0.2-1.0) H 11/10/21 05:25 AST 30 Units/L (15-37) 11/10/21 05:25 ALT 45 Units/L (12-78) 11/10/21 05:25 Alkaline Phosphatase 55 Units/L (46-116) 11/10/21 05:25 Creatine Kinase 519 Units/L (39-308) H 11/10/21 05:25 CK-MB (CK-2) 4.5 ng/mL (0-4.0) H* 11/10/21 05:25 CK/CKMB % Calc 0.9 % (<4) 11/10/21 05:25 Troponin I High Sens 84.4 ng/L (4.0-60.0) H* 11/10/21 05:25 C-Reactive Protein 35.50 mg/L (0-3.0) H 11/10/21 05:25 B-Natriuretic Peptide 751 pg/mL (0-79) H* 11/10/21 05:25 Total Protein 6.2 g/dL (6.4-8.2) L 11/10/21 05:25 Albumin 2.9 g/dL (3.4-5.0) L 11/10/21 05:25 Globulin 3.3 g/dL (2.5-4.5) 11/10/21 05:25 Albumin/Globulin Ratio 0.9 Ratio (1.1-2.1) L 11/10/21 05:25 Prealbumin 14.7 mg/dL (18-35.7) L 11/09/21 04:35 Specimen Type Catherized urine 11/03/21 01:00 Urine Color [place] (YELLOW) 11/03/21 01:00 Urine Appearance Clear (CLEAR) 11/03/21 01:00 Urine pH 5.0 (5.0 - 8.0) 11/03/21 01:00 Ur Specific [place] 1.025 (1.000-1.030) 11/03/21 01:00 Urine Protein 2+ (NEGATIVE) 11/03/21 01:00 Urine Glucose (UA) Negative (NEGATIVE) 11/03/21 01:00 Urine Ketones Negative (NEGATIVE) 11/03/21 01:00 Urine Occult Blood 1+ (NEGATIVE) 11/03/21 01:00 Urine Nitrite Negative (NEGATIVE) 11/03/21 01:00 Urine Bilirubin Negative (NEGATIVE) 11/03/21 01:00 Urine Urobilinogen Normal (NORMAL) 11/03/21 01:00 Ur Leukocyte Esterase Negative (NEGATIVE) 11/03/21 01:00 Urine RBC None seen /HPF (0-3) 11/03/21 01:00 Urine WBC 0-2 /HPF (0-5) 11/03/21 01:00 Ur Squamous Epith Cells Negative /HPF (NEGATIVE) 11/03/21 01:00 Urine Bacteria 2+ /HPF (NEGATIVE) 11/03/21 01:00 Ur Culture Indicated? Yes/culture set up 11/03/21 01:00 SARS CoV-2 RNA Rapid BIRGIT Positive (NEGATIVE) A 11/02/21 17:38 Blood Type O POSITIVE 01/26/22 06:17 Antibody Screen Negative 11/08/21 06:17 Crossmatch See Detail 11/08/21 06:17 - Assessment and Plan 1: severe ileus and distention secondary to complicated COVID infection .. to continue same treament plan .. to try Prostigmen IV today. prognosis is poor . - Problem Patient Problems: Patient Problems Pneumonia due to COVID-19 virus (Acute) U07.1, J12.82 Hypoxia (Acute) R09.02 Acute on chronic renal failure (Acute) N17.9, N18.9 Anemia (Acute) D64.9 Constipation (Acute) K59.00 COVID-19 virus infection (Acute) U07.1 Non Q wave myocardial infarction (Acute) I21.4 Acute respiratory distress (Acute) R06.03
[2021-11-10] MEDS: NovoLIN R (or HumuLIN R) SUBCUT PRN ×3 (13:09→21:44)
[2021-11-10 13:30] LABS: HEMATOCRIT 20.4 % (42.0-54.0)
[2021-11-10 13:51] LABS: HEMOGLOBIN 6.9 g/dL (13.5-18.0)
[2021-11-10] MEDS: SOLU-Medrol 40 MG VIAL IVP SCH ×2 (15:00→21:44)
[2021-11-10] MEDS: [UNRECOGNIZED DRUG - REMARK] IV SCH ×4 (15:41)
[2021-11-10] MEDS: SNACK - Diabetic Appropriate PO SCH (21:42)
[2021-11-10] MEDS: NORVASC TAB 5 MG PO SCH (21:43)
[2021-11-10 21:49] LABS: HEMATOCRIT 21.2 % (42.0-54.0); HEMOGLOBIN 7.1 g/dL (13.5-18.0)
[2021-11-11] MEDS: PULMICORT NEB TX 0.5 MG NEB SCH ×2 (00:43→09:00)
[2021-11-11] MEDS: VITAMIN C PO SCH ×4 (04:01→20:08)
[2021-11-11] MEDS: MORPHINE SULFATE INJ 2 MG INJ IVP PRN (04:28)
[2021-11-11 05:11] LABS: BASOPHILS # (AUTO) 0.1 X10^3/uL (0.0-0.1); LYMPHOCYTES # (AUTO) 0.2 X10^3/uL (1.3-2.9); MEAN CORPUSCULAR VOLUME 87.9 fL (80.0-100.0); MONOCYTES # (AUTO) 0.3 x10^3/uL (0.3-0.8); MONOCYTES % (AUTO) 2.1 % (0.0-13.0); WHITE BLOOD COUNT 16.5 X10^3/uL (3.6-10.0)
[2021-11-11 05:18] LABS: BASOPHILS % (AUTO) 0.5 % (0.2-1.0); HEMATOCRIT 21.2 % (42.0-54.0); MEAN CORPUSCULAR HEMOGLOBIN 28.9 pg (27.0-34.0); MEAN CORPUSCULAR HGB CONC 32.9 g/dL (33.0-35.0); MEAN PLATELET VOLUME 8.7 fL (7.4-11.0); NEUTROPHILS # (AUTO) 15.9 x10^3/uL (2.2-4.8); NEUTROPHILS % (AUTO) 96.4 % (42.0-75.0); RED BLOOD COUNT 2.41 X10^6/uL (4.7-6.0); RED CELL DISTRIBUTION WIDTH 18.5 % (11.6-16.5)
[2021-11-11 05:47] LABS: ALBUMIN 2.8 g/dL (3.4-5.0); CALCIUM 8.6 mg/dL (8.5-10.1); CARBON DIOXIDE 27.2 mmol/L (21-32); CKMB % 1.3 % (<4); COR CA(FOR HYPOALB) 9.6 mg/dL (8.5-10.1); CREATINE KINASE MB 2.9 ng/mL (0-4.0); CREATININE 2.21 mg/dL (0.70-1.30); TOTAL PROTEIN 6.1 g/dL (6.4-8.2)
--- NOTE | 2021-11-11 06:02 | RAD ---
HISTORYSOBSTUDYCHEST, 1 VIEWCOMPARISONJanuary 2021TECHNIQUEChest x-ray portableFINDINGSThere are worsening multifocal bilateral pulmonary opacities/infiltrates associated with the alveolar space. Increasing density is observed overall with multi lobar involvement. Cardiac silhouette remains unchanged in size and morphology. Cannot exclude a small left-sided pleural effusion. No pneumothorax is identified.IMPRESSIONWorsening multifocal bilateral pulmonary opacities/infiltrates suspicious for an atypical pneumonia pattern.Cannot exclude a small left-sided pleural effusionElectronically signed by: KIM BOYLE (Nov 11, 2021 06:01:44)
[2021-11-11] MEDS: SOLU-Medrol 40 MG VIAL IVP SCH ×3 (06:10→21:21)
[2021-11-11] MEDS: ALBUMIN HUMAN 25%- 100 ML 100 ML IV SCH (08:58)
[2021-11-11] MEDS: [UNRECOGNIZED DRUG - REMARK] IV SCH ×4 (08:59)
[2021-11-11] MEDS: MUCOMYST 20% 200 MG/ML NEB SCH ×5 (09:00→21:38)
[2021-11-11] MEDS: COREG TAB 25 MG PO SCH ×2 (09:00→20:08)
[2021-11-11] MEDS: BROVANA IN SCH ×2 (09:00→21:38)
[2021-11-11] MEDS: COZAAR PO SCH (09:00)
[2021-11-11] MEDS: DUONEB 0.5 MG/3 MG (3 mL) NEB SCH ×5 (09:24→21:38)
[2021-11-11] MEDS: PROTONIX INJ 40 MG VIAL IVP SCH ×2 (10:00→20:09)
[2021-11-11] MEDS: ZOSYN VIAL 3.375 GRAMS 3.375 G in NS 100 ML IV + SPIKE MINIBAG* 100 ML IV SCH ×2 (10:00→20:10)
[2021-11-11] MEDS: ISOSORBIDE MONONITRATE ER 24-HR PO SCH (11:22)
[2021-11-11] MEDS: VITAMIN A PO SCH (11:23)
[2021-11-11] MEDS: LUVOX PO SCH ×2 (11:23→20:09)
[2021-11-11] MEDS: RANEXA PO SCH ×2 (11:23→20:10)
[2021-11-11] MEDS: VITAMIN D3 125 mcg (5,000 UNITS) PO SCH (11:24)
[2021-11-11] MEDS: NS 1,000 ML IV 1,000 ML IV SCH (11:24)
[2021-11-11] MEDS: ZINC SULFATE PO SCH ×2 (11:24→20:10)
--- NOTE | 2021-11-11 12:06 | PCM.PROG ---
Progress Note Progress Note for Day of Date of Exam: 11/11/21 Subjective Subjective: PT IS A 86 YEAR OLD MALE ADMITTED FOR PNEUMONIA DUE TO COVID-19, HYPOXIA, RESPIRATORY DISTRESS, ANEMIA, NON-Q WAVE [place], AND ACUTE ON CHRONIC RENAL FAILURE. HE HAS RECEIVED FOUR UNITS OF PACKED RED BLOOD CELLS SINCE ADMISSION. THIS MORNING PATIENT'S BREATHING STATUS CONTINUES TO WORSEN. HE IS CURRENTLY UTILIZING OXYGEN VIA NASAL CANNULA AT 7 LPM. HIS SATURATIONS HAVE BEEN 90-97% LABS/IMAGING WERE OBTAINED: WBC 16.5, HGB 7.0, PLT 213, NA 152, K 3.6, CREATININE 2.21, GLUCOSE 303, TROPONIN 239, BNP 1430, A CHEST XRAY WAS OBTAINED AND REVEALED: Worsening multifocal bilateral pulmonary opacities/infiltrates suspicious for an atypical pneumonia pattern. Cannot exclude a small left-sided pleural effusion. HE IS CURRENTLY RECEIVING NORMAL SALINE, TPN, ALBUMIN 25% IV DAILY, ZOSYN 3.375G IV TID, DUONEBS QID, BROVANA INHALER BID, PULMICORT NEBS BID, PEPCID IV, PROTONIX IV, FLUVOXAMINE 50MG PO BID, IVERMECTIN DAILY, MORPHINE IV PRN, HALDOL IM PRN, PROCRIT 10,000 UNITS SC ON M,W,F, VITAMIN C 1000MG PO Q6H, OTBS ACHS, HUMULIN R SLIDING SCALE, SOLU-MEDROL 40MG IV Q8H, MUCOMYST TO NEB TX QID, VITAMIN A DAILY, ZINC SULFATE 220MG PO BID, AND HIS HOME MEDICATIONS WERE RESUMED. CONTINUE TO HOLD THE HEPARIN. DR COLON WAS CONSULTED, NO FURTHER RECOMMENDATIONS AT THIS TIME. DUE TO CRITICAL SHORTAGE OF BLOOD, WE WILL MONITOR H&H Q8H TO ASSESS THEN NEED FOR FURTHER TRANSFUSIONS. WILL GIVE IV LASIX 20MG X 1 DOSE TODAY AND TRIAL WITH SMART VEST. OTHERWISE, WE PLAN TO FOLLOW UP WITH AM LABS AND CHEST XRAY, CONTINUE TO MONITOR. WEAN/TITRATE OXYGEN PATIENT TOLERATES IT. TIME SPENT ON CLINICAL ASSESSMENT, REVIEWING LABS AND IMAGING, DECISION MAKING, AND DOCUMENTATION GREATER THAN 45 MINUTES. Past Medical Family Social History Past Med/Fam/Surg Hx: No changes since H&P Allergies: Allergies No Known Drug Allergies Allergy (Verified 11/02/21 17:15) Review of Systems ROS: Changes notes (describe) Vital Signs and I&O's Vital Signs: Temperature 97.4 F Pulse Rate [Left Brachial] 69 Pulse Rate 69 Respiratory Rate 24 Blood Pressure [Left Arm] 144/68 Blood Pressure 172/72 O2 Sat by Pulse Oximetry 96 Intake and Output: Intake & Output 11/08/21 11/09/21 11/10/21 11/11/21 23:59 23:59 23:59 23:59 Intake Total 2580 / 2580 3340 / 3340 1410 / 1410 181 / 181 Output Total 1100 / 1100 3500 / 3500 2175 / 2175 100 / 100 Balance 1480 / 1480 -160 / -160 -765 / -765 81 / 81 Physical Exam Oriented: Not Oriented Eyes: Normal Ear: Normal Nose: Normal Throat: Normal Respiratory: Generalized and Rhonchi Cardiovascular: Normal : Normal Auscultation: Bowel Sounds: Decreased Tenderness: Other (distended abdomen , tympanic . with diffuse tenderness , no rebound ,BS hypoactive .) Skin: Normal Musculoskeletal: Normal Psychiatric: Normal and Agitation Mood Description: Anxious Affect: Anxious Speech Pattern: Clear Laboratory and Diagnostics Result Diagrams: 11/11/21 04:45 11/11/21 04:45 Labs: 11/02/21 17:51 Blood Blood Culture - Final 11/02/21 17:30 Blood Blood Culture - Final 11/03/21 01:00 Urine,Catheterized Urine Culture - Final 11/02/21 18:09 Sputum - Expectorated Sputum Sputum Culture - Final 11/02/21 18:09 Sputum - Expectorated Sputum - Final Laboratory WBC 16.5 X10^3/uL (3.6-10.0) H 11/11/21 04:45 RBC 2.41 X10^6/uL (4.7-6.0) L 11/11/21 04:45 Hgb 7.0 g/dL (13.5-18.0) L 11/11/21 04:45 Hct 21.2 % (42.0-54.0) L 11/11/21 04:45 MCV 87.9 fL (80.0-100.0) 11/11/21 04:45 MCH 28.9 pg (27.0-34.0) 11/11/21 04:45 MCHC 32.9 g/dL (33.0-35.0) L 11/11/21 04:45 RDW 18.5 % (11.6-16.5) H 11/11/21 04:45 Plt Count 213 X10^3/uL (150.0-450.0) 11/11/21 04:45 Plt Count Comment Adequate (ADEQUATE) 11/10/21 05:25 MPV 8.7 fL (7.4-11.0) 11/11/21 04:45 Neut % (Auto) 96.4 % (42.0-75.0) H 11/11/21 04:45 Lymph % (Auto) 1.0 % (21.0-51.0) L 11/11/21 04:45 [place] % (Auto) 2.1 % (0.0-13.0) 11/11/21 04:45 Eos % (Auto) 0.0 % (0.9-2.9) L 11/11/21 04:45 Baso % (Auto) 0.5 % (0.2-1.0) 11/11/21 04:45 Neut # (Auto) 15.9 x10^3/uL (2.2-4.8) H 11/11/21 04:45 Lymph # (Auto) 0.2 X10^3/uL (1.3-2.9) L 11/11/21 04:45 [place] # (Auto) 0.3 x10^3/uL (0.3-0.8) 11/11/21 04:45 Eos # (Auto) 0.0 x10^3/uL (0.0-0.2) 11/11/21 04:45 Baso # (Auto) 0.1 X10^3/uL (0.0-0.1) 11/11/21 04:45 Absolute Nucleated RBC 1.0 /100WBC 11/11/21 04:45 Total Counted 100 11/10/21 05:25 Neutrophils % (Manual) 99 % (39-76) H 11/10/21 05:25 Band Neutrophils % 4 % (0-10) 11/03/21 05:51 Lymphocytes % (Manual) 1 % (13-43) L 11/10/21 05:25 Monocytes % (Manual) 2 % (4-9) L 11/09/21 04:35 Plt Morphology Comment Normal (NORMAL) 11/10/21 05:25 RBC Morphology Abnormal (NORMAL) 11/10/21 05:25 Dimorphic RBCs Slight 11/10/21 05:25 Hypochromasia Slight A 11/07/21 03:04 Poikilocytosis Slight A 11/02/21 17:51 Anisocytosis Slight A 11/10/21 05:25 Microcytosis 1+ A 11/06/21 05:00 [place] Cells 2+ A 11/03/21 05:51 Acanthocytes (Spur) 1+ 11/07/21 03:04 Schistocytes Slight A 11/10/21 05:25 PT 15.5 SECONDS (11.8-14.3) 11/03/21 00:40 INR Target Range - 11/03/21 00:40 INR 1.30 (0.8-1.3) 11/03/21 00:40 APTT 31.5 SECONDS (22.9-36.5) 11/08/21 13:00 PTT Comment - 11/08/21 13:00 D-Dimer 4.06 ug/ml (0.0-0.57) H* 11/03/21 08:58 Sample Site Lr 11/08/21 05:00 ABG pH 7.390 (7.35-7.45) 11/08/21 05:00 ABG pCO2 42.0 mmHg (35.0-45.0) 11/08/21 05:00 ABG pO2 124.0 mmHg (80.0-100.0) H 11/08/21 05:00 ABG HCO3 25.4 mmol/L (22-26) 11/08/21 05:00 ABG O2 Saturation 99.0 % (90-100) 11/08/21 05:00 ABG Base Excess 0.3 mmol/L (-2.0-2.0) 11/08/21 05:00 Cristiano Test Pos 11/08/21 05:00 A-a Gradient 144.0 mmHg 11/08/21 05:00 FiO2 45.0 11/08/21 05:00 Blood Gas Comments Angela well sw 11/08/21 05:00 Sodium 152 mmol/L (136-145) H* 11/11/21 04:45 Corrected Sodium 157 mmol/L (136-145) H 11/11/21 04:45 Potassium 3.6 mmol/L (3.5-5.1) 11/11/21 04:45 Chloride 114 mmol/L (98-107) H 11/11/21 04:45 Carbon Dioxide 27.2 mmol/L (21-32) 11/11/21 04:45 BUN 93 mg/dL (7-18) H 11/11/21 04:45 Creatinine 2.21 mg/dL (0.70-1.30) H 11/11/21 04:45 Est GFR (MDRD) Af Amer 37 (>60) L 11/11/21 04:45 Est GFR (MDRD) Non-Af 30 (>60) L 11/11/21 04:45 Glucose 303 mg/dL (65-99) H 11/11/21 04:45 POC Glucose (mg/dL) 275 mg/dL (65-99) H 11/10/21 19:32 Lactic Acid 1.7 mmol/L (0.4-2.0) 11/02/21 17:51 Calcium 8.6 mg/dL (8.5-10.1) 11/11/21 04:45 Corrected Calcium 9.6 mg/dL (8.5-10.1) 11/11/21 04:45 Magnesium 1.8 mg/dL (1.7-2.9) 11/05/21 02:38 Total Bilirubin 1.10 mg/dL (0.2-1.0) H 11/11/21 04:45 AST 20 Units/L (15-37) 11/11/21 04:45 ALT 38 Units/L (12-78) 11/11/21 04:45 Alkaline Phosphatase 57 Units/L (46-116) 11/11/21 04:45 Creatine Kinase 216 Units/L (39-308) 11/11/21 04:45 CK-MB (CK-2) 2.9 ng/mL (0-4.0) 11/11/21 04:45 CK/CKMB % Calc 1.3 % (<4) 11/11/21 04:45 Troponin I High Sens 239.4 ng/L (4.0-60.0) H* 11/11/21 04:45 C-Reactive Protein 29.00 mg/L (0-3.0) H 11/11/21 04:45 B-Natriuretic Peptide 1430 pg/mL (0-79) H* 11/11/21 04:45 Total Protein 6.1 g/dL (6.4-8.2) L 11/11/21 04:45 Albumin 2.8 g/dL (3.4-5.0) L 11/11/21 04:45 Globulin 3.3 g/dL (2.5-4.5) 11/11/21 04:45 Albumin/Globulin Ratio 0.8 Ratio (1.1-2.1) L 11/11/21 04:45 Prealbumin 14.7 mg/dL (18-35.7) L 11/09/21 04:35 Specimen Type Catherized urine 11/03/21 01:00 Urine Color [place] (YELLOW) 11/03/21 01:00 Urine Appearance Clear (CLEAR) 11/03/21 01:00 Urine pH 5.0 (5.0 - 8.0) 11/03/21 01:00 Ur Specific [place] 1.025 (1.000-1.030) 11/03/21 01:00 Urine Protein 2+ (NEGATIVE) 11/03/21 01:00 Urine Glucose (UA) Negative (NEGATIVE) 11/03/21 01:00 Urine Ketones Negative (NEGATIVE) 11/03/21 01:00 Urine Occult Blood 1+ (NEGATIVE) 11/03/21 01:00 Urine Nitrite Negative (NEGATIVE) 11/03/21 01:00 Urine Bilirubin Negative (NEGATIVE) 11/03/21 01:00 Urine Urobilinogen Normal (NORMAL) 11/03/21 01:00 Ur Leukocyte Esterase Negative (NEGATIVE) 11/03/21 01:00 Urine RBC None seen /HPF (0-3) 11/03/21 01:00 Urine WBC 0-2 /HPF (0-5) 11/03/21 01:00 Ur Squamous Epith Cells Negative /HPF (NEGATIVE) 11/03/21 01:00 Urine Bacteria 2+ /HPF (NEGATIVE) 11/03/21 01:00 Ur Culture Indicated? Yes/culture set up 11/03/21 01:00 SARS CoV-2 RNA Rapid BIRGIT Positive (NEGATIVE) A 11/02/21 17:38 Blood Type O POSITIVE 11/08/21 06:17 Antibody Screen Negative 11/08/21 06:17 Crossmatch See Detail 11/08/21 06:17 Plan (1) Pneumonia due to COVID-19 virus: Status: Acute Plan: SUPPLEMENTAL OXYGEN, NORMAL SALINE, TPN, ALBUMIN, IV ANTIBIOTICS, IV STEROIDS, NEB TX, IV MORPHINE PRN, HALDOL PRN, IMMUNE SUPPLEMENTS, OTBS ACHS, SSI, CONTINUE HOME MEDS (2) Non Q wave myocardial infarction: Status: Acute Plan: Continue current treatment. (3) Hypoxia: Status: Acute (4) Acute respiratory distress: Status: Acute Plan: Continue nebs, IV abx and Solumedrol. (5) Acute on chronic renal failure: Status: Acute Qualifiers: Acute renal failure type: unspecified Chronic kidney disease stage: unspecified stage Qualified Code(s): N17.9 - Acute kidney failure, unspecified; N18.9 - Chronic kidney disease, unspecified (6) Anemia: Status: Acute Qualifiers: Anemia type: unspecified type Qualified Code(s): D64.9 - Anemia, unspecified Plan: CONSULT GI, PROCRIT ON M/W/F, MONITOR H&H (7) Constipation: Status: Acute Qualifiers: Constipation type: unspecified constipation type Qualified Code(s): K59.00 - Constipation, unspecified Plan: SOAP SUDS ENEMA
[2021-11-11] MEDS ORDERED: LASIX IVP ONE (12:13)
[2021-11-11 13:09] LABS: PLATELET MORPHOLOGY COMMENT NORMAL (NORMAL)
[2021-11-11] MEDS: NovoLIN R (or HumuLIN R) SUBCUT PRN ×3 (13:27→20:53)
[2021-11-11] MEDS: SNACK - Diabetic Appropriate PO SCH (20:08)
[2021-11-11] MEDS: NORVASC TAB 5 MG PO SCH (20:09)
[2021-11-11] MEDS: NEURONTIN CAP 100 MG PO SCH (20:09)
[2021-11-12] MEDS ORDERED: DUONEB 0.5 MG/3 MG (3 mL) NEB ONE ×3 (00:24→23:57)
[2021-11-12] MEDS: DUONEB 0.5 MG/3 MG (3 mL) NEB SCH ×6 (00:43→21:40)
[2021-11-12] MEDS: VITAMIN C PO SCH ×4 (01:17→19:04)
[2021-11-12] MEDS: NS 1,000 ML IV 1,000 ML IV SCH ×2 (02:28→14:01)
[2021-11-12] MEDS: SOLU-Medrol 40 MG VIAL IVP SCH ×3 (05:02→21:11)
[2021-11-12 05:15] LABS: BASOPHILS % (AUTO) 0.2 % (0.2-1.0); EOSINOPHILS % (AUTO) 0.1 % (0.9-2.9); HEMOGLOBIN 7.1 g/dL (13.5-18.0); LYMPHOCYTES # (AUTO) 0.1 X10^3/uL (1.3-2.9); LYMPHOCYTES % (AUTO) 0.5 % (21.0-51.0); MEAN CORPUSCULAR HEMOGLOBIN 29.1 pg (27.0-34.0); MEAN CORPUSCULAR HGB CONC 32.5 g/dL (33.0-35.0); MEAN CORPUSCULAR VOLUME 89.5 fL (80.0-100.0); MEAN PLATELET VOLUME 8.4 fL (7.4-11.0); MONOCYTES # (AUTO) 0.6 x10^3/uL (0.3-0.8); MONOCYTES % (AUTO) 3.6 % (0.0-13.0); NEUTROPHILS # (AUTO) 16.5 x10^3/uL (2.2-4.8); NEUTROPHILS % (AUTO) 95.6 % (42.0-75.0); RED BLOOD COUNT 2.46 X10^6/uL (4.7-6.0); WHITE BLOOD COUNT 17.2 X10^3/uL (3.6-10.0)
[2021-11-12 05:33] LABS: CALCIUM 8.7 mg/dL (8.5-10.1); CARBON DIOXIDE 26.8 mmol/L (21-32); CREATININE 2.42 mg/dL (0.70-1.30)
[2021-11-12 05:36] LABS: PLATELET MORPHOLOGY COMMENT NORMAL (NORMAL)
[2021-11-12 05:37] LABS: ANISOCYTOSIS SLIGHT
[2021-11-12 05:43] LABS: CKMB % 1.8 % (<4); CREATINE KINASE MB 1.6 ng/mL (0-4.0)
[2021-11-12] MEDS: NovoLIN R (or HumuLIN R) SUBCUT PRN ×4 (05:44→21:43)
--- NOTE | 2021-11-12 06:26 | RAD ---
HISTORYSOB HX: CAD, HTN, DM SX: STENTSSTUDYCHEST, 1 [id number] trachea is midline. The cardiac silhouette is mildly enlarged. 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 Multifocal bilateral pulmonary opacities/infiltrates unchanged. No pneumothorax. A stable portable chest. The bony thorax is unremarkable.IMPRESSIONNo acute cardiopulmonary findings .Electronically signed by: Junior Harrell (Nov 12, 2021 06:25:26)
[2021-11-12] MEDS: MUCOMYST 20% 200 MG/ML NEB SCH ×4 (08:15→21:40)
[2021-11-12] MEDS: BROVANA IN SCH ×2 (08:15→21:39)
[2021-11-12] MEDS: PULMICORT NEB TX 0.5 MG NEB SCH ×2 (08:15→21:40)
[2021-11-12] MEDS: ALBUMIN HUMAN 25%- 100 ML 100 ML IV SCH (09:21)
[2021-11-12] MEDS: ZOSYN VIAL 3.375 GRAMS 3.375 G in NS 100 ML IV + SPIKE MINIBAG* 100 ML IV SCH ×2 (09:22→21:11)
[2021-11-12] MEDS: COREG TAB 25 MG PO SCH ×2 (09:50→21:05)
[2021-11-12] MEDS: PROTONIX INJ 40 MG VIAL IVP SCH ×2 (09:51→21:05)
[2021-11-12] MEDS: COZAAR PO SCH (09:51)
[2021-11-12] MEDS: LUVOX PO SCH ×2 (09:51→21:05)
[2021-11-12] MEDS: ZINC SULFATE PO SCH ×2 (09:51→21:11)
[2021-11-12] MEDS: ISOSORBIDE MONONITRATE ER 24-HR PO SCH (09:51)
[2021-11-12] MEDS: RANEXA PO SCH ×2 (09:52→21:09)
[2021-11-12] MEDS: VITAMIN A PO SCH (09:52)
[2021-11-12] MEDS: VITAMIN D3 125 mcg (5,000 UNITS) PO SCH (09:52)
[2021-11-12] MEDS ORDERED: POTASSIUM CHL 60 MEQ/NS 0.45% 500 ML IV PRN (10:34)
[2021-11-12] MEDS ORDERED: MAGNESIUM SULFATE 1 GRAM/100 mL PREMIX 1 G/100 ML BAG IV PRN (10:34)
[2021-11-12] MEDS ORDERED: K-DUR TAB 20 MEQ PO PRN (10:34)
[2021-11-12] MEDS ORDERED: POTASSIUM CHLORIDE LIQ 20 MEQ UDC PO PRN (10:34)
[2021-11-12] MEDS ORDERED: KLOR-CON PO PRN (10:34)
[2021-11-12] MEDS ORDERED: POTASSIUM CHL 40 MEQ/NS 0.45% 500 ML IV PRN (10:34)
[2021-11-12] MEDS ORDERED: MICRO K EXTEN CAP 10 MEQ PO PRN (10:34)
[2021-11-12] MEDS ORDERED: PERIACTIN TAB 4 MG PO SCH (11:30)
[2021-11-12] MEDS ORDERED: [UNRECOGNIZED DRUG - REMARK] IV SCH ×5 (12:00)
--- NOTE | 2021-11-12 12:35 | PCM.PROG ---
Progress Note Progress Note for Day of Date of Exam: 11/12/21 Subjective Subjective: PT IS A 86 YEAR OLD MALE ADMITTED FOR PNEUMONIA DUE TO COVID-19, HYPOXIA, RESPIRATORY DISTRESS, ANEMIA, NON-Q WAVE [place], AND ACUTE ON CHRONIC RENAL FAILURE. HE HAS RECEIVED FOUR UNITS OF PACKED RED BLOOD CELLS SINCE ADMISSION. THIS MORNING PATIENT'S BREATHING STATUS HAS NOT IMPROVED. HE IS CURRENTLY UTILIZING OXYGEN VIA NASAL CANNULA AT 5 LPM. LABS/IMAGING WERE OBTAINED: WBC 17.2, HGB 7.1, PLT 224, NA 153, K 3.3, CREATININE 2.42, GLUCOSE 314, TROPONIN 270, BNP 1050, A CHEST XRAY WAS OBTAINED AND REVEALED: Multifocal bilateral pulmonary opacities/infiltrates unchanged. HE IS CURRENTLY RECEIVING NORMAL SALINE, TPN, ALBUMIN 25% IV DAILY, ZOSYN 3.375G IV TID, DUONEBS QID, BROVANA INHALER BID, PULMICORT NEBS BID, PEPCID IV, PROTONIX IV, FLUVOXAMINE 50MG PO BID, IVERMECTIN DAILY, MORPHINE IV PRN, HALDOL IM PRN, PROCRIT 10,000 UNITS SC ON ,,, VITAMIN C 1000MG PO Q6H, OTBS ACHS, HUMULIN R SLIDING SCALE, SOLU- MEDROL 40MG IV Q8H, MUCOMYST TO NEB TX QID, VITAMIN A DAILY, ZINC SULFATE 220MG PO BID, AND HIS HOME MEDICATIONS WERE RESUMED. CONTINUE TO HOLD THE HEPARIN. DR COLON WAS CONSULTED, NO FURTHER RECOMMENDATIONS AT THIS TIME. DUE TO CRITICAL SHORTAGE OF BLOOD, WE WILL MONITOR H&H Q8H TO ASSESS THEN NEED FOR FURTHER TRANSFUSIONS. OTHERWISE, WE WILL CONTINUE WITH CURRENT TREATMENT PLAN. FOLLOW UP WITH AM LABS AND CHEST XRAY, CONTINUE TO MONITOR. WEAN/TITRATE OXYGEN PATIENT TOLERATES IT. TIME SPENT ON CLINICAL ASSESSMENT, REVIEWING LABS AND IMAGING, DECISION MAKING, AND DOCUMENTATION GREATER THAN 45 MINUTES. Past Medical Family Social History Past Med/Fam/Surg Hx: No changes since H&P Allergies: Allergies No Known Drug Allergies Allergy (Verified 11/02/21 17:15) Review of Systems ROS: Changes notes (describe) Vital Signs and I&O's Vital Signs: Temperature 97.4 F Pulse Rate [Left Brachial] 69 Pulse Rate 69 Respiratory Rate 34 Blood Pressure [Left Arm] 144/68 Blood Pressure 161/72 O2 Sat by Pulse Oximetry 94 Intake and Output: Intake & Output 11/09/21 11/10/21 11/11/21 11/12/21 23:59 23:59 23:59 23:59 Intake Total 3340 / 3340 1410 / 1410 1147 / 1147 524 / 524 Output Total 3500 / 3500 2175 / 2175 850 / 850 150 / 150 Balance -160 / -160 -765 / -765 297 / 297 374 / 374 Physical Exam Oriented: Not Oriented Eyes: Normal Ear: Normal Nose: Normal Throat: Normal Respiratory: Generalized and Rhonchi Cardiovascular: Normal : Normal Auscultation: Bowel Sounds: Decreased Tenderness: Other (distended abdomen , tympanic . with diffuse tenderness , no rebound ,BS hypoactive .) Skin: Normal Musculoskeletal: Normal Psychiatric: Normal and Agitation Mood Description: Anxious Affect: Anxious Speech Pattern: Clear Laboratory and Diagnostics Result Diagrams: 11/12/21 04:49 11/12/21 04:49 Labs: 11/02/21 17:51 Blood Blood Culture - Final 11/02/21 17:30 Blood Blood Culture - Final 11/03/21 01:00 Urine,Catheterized Urine Culture - Final 11/02/21 18:09 Sputum - Expectorated Sputum Sputum Culture - Final 11/02/21 18:09 Sputum - Expectorated Sputum - Final Laboratory WBC 17.2 X10^3/uL (3.6-10.0) H 11/12/21 04:49 RBC 2.46 X10^6/uL (4.7-6.0) L 11/12/21 04:49 Hgb 7.1 g/dL (13.5-18.0) L 11/12/21 04:49 Hct 22.0 % (42.0-54.0) L 11/12/21 04:49 MCV 89.5 fL (80.0-100.0) 11/12/21 04:49 MCH 29.1 pg (27.0-34.0) 11/12/21 04:49 MCHC 32.5 g/dL (33.0-35.0) L 11/12/21 04:49 RDW 19.0 % (11.6-16.5) H 11/12/21 04:49 Plt Count 224 X10^3/uL (150.0-450.0) 11/12/21 04:49 Plt Count Comment Adequate (ADEQUATE) 11/12/21 04:49 MPV 8.4 fL (7.4-11.0) 11/12/21 04:49 Neut % (Auto) 95.6 % (42.0-75.0) H 11/12/21 04:49 Lymph % (Auto) 0.5 % (21.0-51.0) L 11/12/21 04:49 [place] % (Auto) 3.6 % (0.0-13.0) 11/12/21 04:49 Eos % (Auto) 0.1 % (0.9-2.9) L 11/12/21 04:49 Baso % (Auto) 0.2 % (0.2-1.0) 11/12/21 04:49 Neut # (Auto) 16.5 x10^3/uL (2.2-4.8) H 11/12/21 04:49 Lymph # (Auto) 0.1 X10^3/uL (1.3-2.9) L 11/12/21 04:49 [place] # (Auto) 0.6 x10^3/uL (0.3-0.8) 11/12/21 04:49 Eos # (Auto) 0.0 x10^3/uL (0.0-0.2) 11/12/21 04:49 Baso # (Auto) 0.0 X10^3/uL (0.0-0.1) 11/12/21 04:49 Absolute Nucleated RBC 0.3 /100WBC 11/12/21 04:49 Total Counted 100 11/12/21 04:49 Neutrophils % (Manual) 95 % (39-76) H 11/12/21 04:49 Band Neutrophils % 4 % (0-10) 11/03/21 05:51 Lymphocytes % (Manual) 1 % (13-43) L 11/12/21 04:49 Monocytes % (Manual) 4 % (4-9) 11/12/21 04:49 Plt Morphology Comment Normal (NORMAL) 11/12/21 04:49 RBC Morphology Abnormal (NORMAL) 11/12/21 04:49 Dimorphic RBCs Slight 11/10/21 05:25 Hypochromasia Slight A 11/07/21 03:04 Poikilocytosis Slight A 11/02/21 17:51 Anisocytosis Slight A 11/12/21 04:49 Microcytosis 1+ A 11/06/21 05:00 [place] Cells 2+ A 11/03/21 05:51 Acanthocytes (Spur) Slight 11/12/21 04:49 Schistocytes Slight A 11/10/21 05:25 PT 15.5 SECONDS (11.8-14.3) 11/03/21 00:40 INR Target Range - 11/03/21 00:40 INR 1.30 (0.8-1.3) 11/03/21 00:40 APTT 31.5 SECONDS (22.9-36.5) 11/08/21 13:00 PTT Comment - 11/08/21 13:00 D-Dimer 4.06 ug/ml (0.0-0.57) H* 11/03/21 08:58 Sample Site Lr 11/08/21 05:00 ABG pH 7.390 (7.35-7.45) 11/08/21 05:00 ABG pCO2 42.0 mmHg (35.0-45.0) 11/08/21 05:00 ABG pO2 124.0 mmHg (80.0-100.0) H 11/08/21 05:00 ABG HCO3 25.4 mmol/L (22-26) 11/08/21 05:00 ABG O2 Saturation 99.0 % (90-100) 11/08/21 05:00 ABG Base Excess 0.3 mmol/L (-2.0-2.0) 11/08/21 05:00 Cristiano Test Pos 11/08/21 05:00 A-a Gradient 144.0 mmHg 11/08/21 05:00 FiO2 45.0 11/08/21 05:00 Blood Gas Comments Angela well sw 11/08/21 05:00 Sodium 153 mmol/L (136-145) H* 11/12/21 04:49 Corrected Sodium 158 mmol/L (136-145) H 11/12/21 04:49 Potassium 3.3 mmol/L (3.5-5.1) L 11/12/21 04:49 Chloride 115 mmol/L (98-107) H* 11/12/21 04:49 Carbon Dioxide 26.8 mmol/L (21-32) 11/12/21 04:49 BUN 101 mg/dL (7-18) H 11/12/21 04:49 Creatinine 2.42 mg/dL (0.70-1.30) H 11/12/21 04:49 Est GFR (MDRD) Af Amer 33 (>60) L 11/12/21 04:49 Est GFR (MDRD) Non-Af 27 (>60) L 11/12/21 04:49 Glucose 314 mg/dL (65-99) H 11/12/21 04:49 POC Glucose (mg/dL) 204 mg/dL (65-99) H 11/12/21 12:27 Lactic Acid 1.7 mmol/L (0.4-2.0) 11/02/21 17:51 Calcium 8.7 mg/dL (8.5-10.1) 11/12/21 04:49 Corrected Calcium Cancelled 11/12/21 04:49 Magnesium 1.8 mg/dL (1.7-2.9) 11/05/21 02:38 Total Bilirubin Cancelled 11/12/21 04:49 AST Cancelled 11/12/21 04:49 ALT Cancelled 11/12/21 04:49 Alkaline Phosphatase Cancelled 11/12/21 04:49 Creatine Kinase 90 Units/L (39-308) 11/12/21 04:49 CK-MB (CK-2) 1.6 ng/mL (0-4.0) 11/12/21 04:49 CK/CKMB % Calc 1.8 % (<4) 11/12/21 04:49 Troponin I High Sens 270.7 ng/L (4.0-60.0) H* 11/12/21 04:49 C-Reactive Protein 27.10 mg/L (0-3.0) H 11/12/21 04:49 B-Natriuretic Peptide 1050 pg/mL (0-79) H* 11/12/21 04:49 Total Protein Cancelled 11/12/21 04:49 Albumin Cancelled 11/12/21 04:49 Globulin Cancelled 11/12/21 04:49 Albumin/Globulin Ratio Cancelled 11/12/21 04:49 Prealbumin 14.7 mg/dL (18-35.7) L 11/09/21 04:35 Specimen Type Catherized urine 11/03/21 01:00 Urine Color [place] (YELLOW) 11/03/21 01:00 Urine Appearance Clear (CLEAR) 11/03/21 01:00 Urine pH 5.0 (5.0 - 8.0) 11/03/21 01:00 Ur Specific [place] 1.025 (1.000-1.030) 11/03/21 01:00 Urine Protein 2+ (NEGATIVE) 11/03/21 01:00 Urine Glucose (UA) Negative (NEGATIVE) 11/03/21 01:00 Urine Ketones Negative (NEGATIVE) 11/03/21 01:00 Urine Occult Blood 1+ (NEGATIVE) 11/03/21 01:00 Urine Nitrite Negative (NEGATIVE) 11/03/21 01:00 Urine Bilirubin Negative (NEGATIVE) 11/03/21 01:00 Urine Urobilinogen Normal (NORMAL) 11/03/21 01:00 Ur Leukocyte Esterase Negative (NEGATIVE) 11/03/21 01:00 Urine RBC None seen /HPF (0-3) 11/03/21 01:00 Urine WBC 0-2 /HPF (0-5) 11/03/21 01:00 Ur Squamous Epith Cells Negative /HPF (NEGATIVE) 11/03/21 01:00 Urine Bacteria 2+ /HPF (NEGATIVE) 11/03/21 01:00 Ur Culture Indicated? Yes/culture set up 11/03/21 01:00 SARS CoV-2 RNA Rapid BIRGIT Positive (NEGATIVE) A 11/02/21 17:38 Blood Type O POSITIVE 11/08/21 06:17 Antibody Screen Negative 11/08/21 06:17 Crossmatch See Detail 11/08/21 06:17 Plan (1) Pneumonia due to COVID-19 virus: Status: Acute Plan: SUPPLEMENTAL OXYGEN, NORMAL SALINE, TPN, ALBUMIN, IV ANTIBIOTICS, IV STEROIDS, NEB TX, IV MORPHINE PRN, HALDOL PRN, IMMUNE SUPPLEMENTS, OTBS ACHS, SSI, CONTINUE HOME MEDS (2) Non Q wave myocardial infarction: Status: Acute Plan: Continue current treatment. (3) Hypoxia: Status: Acute (4) Acute respiratory distress: Status: Acute Plan: Continue nebs, IV abx and Solumedrol. (5) Acute on chronic renal failure: Status: Acute Qualifiers: Acute renal failure type: unspecified Chronic kidney disease stage: unspecified stage Qualified Code(s): N17.9 - Acute kidney failure, unspecified; N18.9 - Chronic kidney disease, unspecified (6) Anemia: Status: Acute Qualifiers: Anemia type: unspecified type Qualified Code(s): D64.9 - Anemia, unspecified Plan: CONSULT GI, PROCRIT ON M/W/F, MONITOR H&H (7) Constipation: Status: Acute Qualifiers: Constipation type: unspecified constipation type Qualified Code(s): K59.00 - Constipation, unspecified Plan: SOAP SUDS ENEMA
[2021-11-12] MEDS: PERIACTIN TAB 4 MG PO SCH (14:01)
[2021-11-12] MEDS: K-RIDER 10 MEQ/NS 100 ML 10 MEQ/100 ML BAG IV PRN ×2 (14:03→17:00)
[2021-11-12] MEDS: MORPHINE SULFATE INJ 2 MG INJ IVP PRN (19:05)
[2021-11-12] MEDS: SNACK - Diabetic Appropriate PO SCH (21:04)
[2021-11-12] MEDS: NEURONTIN CAP 100 MG PO SCH (21:08)
[2021-11-12] MEDS: NORVASC TAB 5 MG PO SCH (21:09)
[2021-11-13] MEDS: VITAMIN C PO SCH ×2 (04:30→08:19)
[2021-11-13] MEDS: NS 1,000 ML IV 1,000 ML IV SCH (05:30)
[2021-11-13] MEDS: SOLU-Medrol 40 MG VIAL IVP SCH (05:33)
--- NOTE | 2021-11-13 06:19 | RAD ---
HISTORYSOBSTUDYCHEST, 1 [id number]/2022.TECHNIQUEAP view of the chestFINDINGSPatient is rotated. Bilateral chest wall cardiac devices. Status post median sternotomy. There is complete opacification left tawana thorax. Patient's chin obscures portions of the left apex. Similar appearance of multifocal right lung airspace and interstitial opacity. No definite pneumothorax.IMPRESSIONWorsened opacification of the left lung with now complete opacification left tawana thorax. There is neutral position of the trachea. Opacification may be due to airspace disease although pleural effusion with atelectasis can have a similar appearance.Electronically signed by: Orlando Martinez (Nov 13, 2021 06:18:28)
[2021-11-13 06:30] LABS: BASOPHILS % (AUTO) 0.2 % (0.2-1.0); HEMATOCRIT 22.6 % (42.0-54.0); HEMOGLOBIN 7.3 g/dL (13.5-18.0); LYMPHOCYTES # (AUTO) 0.1 X10^3/uL (1.3-2.9); LYMPHOCYTES % (AUTO) 0.7 % (21.0-51.0); MEAN CORPUSCULAR HEMOGLOBIN 29.8 pg (27.0-34.0); MEAN CORPUSCULAR HGB CONC 32.4 g/dL (33.0-35.0); MEAN CORPUSCULAR VOLUME 92.2 fL (80.0-100.0); MEAN PLATELET VOLUME 8.8 fL (7.4-11.0); MONOCYTES # (AUTO) 0.4 x10^3/uL (0.3-0.8); MONOCYTES % (AUTO) 2.4 % (0.0-13.0); NEUTROPHILS # (AUTO) 18.2 x10^3/uL (2.2-4.8); NEUTROPHILS % (AUTO) 96.7 % (42.0-75.0); RED BLOOD COUNT 2.45 X10^6/uL (4.7-6.0); RED CELL DISTRIBUTION WIDTH 19.6 % (11.6-16.5); WHITE BLOOD COUNT 18.8 X10^3/uL (3.6-10.0)
[2021-11-13 07:06] LABS: CALCIUM 8.8 mg/dL (8.5-10.1); CARBON DIOXIDE 28.6 mmol/L (21-32); CREATININE 2.69 mg/dL (0.70-1.30)
[2021-11-13 07:14] LABS: ANISOCYTOSIS SLIGHT; BAND NEUTROPHILS % 5 % (0-10); CREATINE KINASE MB 1.4 ng/mL (0-4.0); PLATELET MORPHOLOGY COMMENT NORMAL (NORMAL)
[2021-11-13] MEDS: COZAAR PO SCH (08:20)
[2021-11-13] MEDS: RANEXA PO SCH (08:20)
[2021-11-13] MEDS: COREG TAB 25 MG PO SCH (08:20)
[2021-11-13] MEDS: ISOSORBIDE MONONITRATE ER 24-HR PO SCH (08:20)
[2021-11-13] MEDS: VITAMIN A PO SCH (08:21)
[2021-11-13] MEDS: ZINC SULFATE PO SCH (08:21)
[2021-11-13] MEDS: LUVOX PO SCH (08:21)
[2021-11-13] MEDS: VITAMIN D3 125 mcg (5,000 UNITS) PO SCH (08:21)
[2021-11-13] MEDS: PERIACTIN TAB 4 MG PO SCH (08:21)
[2021-11-13] MEDS: MUCOMYST 20% 200 MG/ML NEB SCH ×2 (09:25→12:49)
[2021-11-13] MEDS: DUONEB 0.5 MG/3 MG (3 mL) NEB SCH ×3 (09:25→12:49)
[2021-11-13] MEDS: PULMICORT NEB TX 0.5 MG NEB SCH (09:25)
[2021-11-13] MEDS: MORPHINE SULFATE INJ 2 MG INJ IVP PRN (09:52)
[2021-11-13] MEDS ORDERED: VERSED 100 MG in NS 100 ML IV 80 ML IV PRN (09:56)
[2021-11-13] MEDS ORDERED: MORPHINE SULFATE PCA 30 MG IVP PRN (09:56)
[2021-11-13 11:31] LABS: ALBUMIN 2.8 g/dL (3.4-5.0); COR CA(FOR HYPOALB) 9.8 mg/dL (8.5-10.1); TOTAL PROTEIN 6.1 g/dL (6.4-8.2)
[2021-11-13] MEDS ORDERED: VERSED IV PREMIX 100 MG/100 ML IV.SOLN IV ONE (11:51)
[2021-11-13 13:02] VITALS: BP 101/52
== END 2021-11-13 16:10 | disposition expired | DRG 177 ==
LOC: ER 17:04 → U 11-03 02:09 → ICU 11-03 16:24
PROVIDERS: ADMIT Internal Medicine; ATTEND Internal Medicine